=== PATIENT | male | born 1955 | race Caucasian/White ===

== ENCOUNTER 2021-04-29 14:55 | Emergency (ER) | payer BC, SELFPAY ==
--- NOTE | ~2021-04-29 | XR_ITS ---
EXAMINATION: XR CHEST CLINICAL INFORMATION: Chest pain COMPARISON: Chest x-ray 10/03/2009 TECHNIQUE: Frontal view of the chest was obtained. 5:28 PM FINDINGS: No significant abnormality is noted involving the heart, lungs, mediastinum, bony thorax or soft tissues. XR/XR chest 1V IMPRESSION: Unremarkable examination.
[2021-04-29 15:25] VITALS: BP 142/80; PULSE 56; RESP 18; TEMP 36.7; BMI 28.8
--- NOTE | 2021-04-29 15:29 | ECG_ITS ---
Test Reason : CHEST PAIN Blood Pressure : / mmHG Vent. Rate : 051 BPM Atrial Rate : 051 BPM P-R Int : 180 ms QRS Dur : 098 ms QT Int : 418 ms P-R-T Axes : 034 -05 015 degrees QTc Int : 385 ms Sinus bradycardia Otherwise normal ECG When compared with ECG of 03-OCT-2009 11:19, Premature ventricular complexes are no longer Present Referred By: Generic ED Physician Electronically Signed By:MAIRA GOVEA
[2021-04-29 16:30] LABS: MANUAL DIFF FLAG NO
[2021-04-29 16:31] LABS: Basophils Percent Auto 0.2 % (0-2); Eosinophils Absolute Auto 0.1 X10*3/uL (0.0-0.4); Eosinophils Percent Auto 1.1 % (0-4); Hemoglobin 14.5 g/dl (14.0-18.0); Imm Gran Abs Auto 0.01 X10*3/uL (0.00-0.03); Imm Gran Pct Auto 0.2 % (0.0-0.4); Lymphocytes Absolute Auto 1.6 X10*3/uL (1.2-4.9); Lymphocytes Percent Auto 28.4 % (20-40); Mean Corpuscular HGB Conc 33.7 g/dl (31.0-36.0); Mean Corpuscular Hemoglobin 30.6 pg (27.0-33.0); Mean Corpuscular Volume 90.7 fL (80-98); Mean Platelet Volume 11.1 fL (9.4-12.4); Monocytes Absolute Auto 0.5 X10*3/uL (0.1-1.2); Monocytes Percent Auto 9.3 % (2-11); Neutrophils Absolute Auto 3.4 X10*3/uL (2.0-8.3); Neutrophils Percent Auto 60.8 % (45-73); Platelet Count 175 X10*3/uL (160-400); Red Blood Count 4.74 X10*6/uL (4.60-5.80); Red Cell Distribution Width 12.1 % (11.0-16.0); White Blood Count 5.6 X10*3/uL (4.8-10.8)
[2021-04-29 17:01] LABS: Anion Gap 14 (12-20); Blood Urea Nitrogen 18 mg/dL (9-16); Calcium 9.4 mg/dL (8.4-10.2); Carbon Dioxide 25 mmol/L (22-29); Chloride 108 mmol/L (96-108); Creatinine Clr Calc Pharmacy 94.7; Estimated Glomerular Filt Rate > 60; Glucose Random 99 mg/dL (60-115); Potassium 4.1 mmol/L (3.3-5.1); Sodium 143 mmol/L (135-145)
[2021-04-29 17:08] LABS: B Type Natriuretic Peptide 28 pg/mL (<100); Troponin-I High Sensitivity 7.1 ng/L (<3.5-35.0)
--- NOTE | 2021-04-29 18:07 | ED.CHESTPAIN ---
HPI - Chest Pain General Chief Complaint: Chest Pain Stated Complaint: chest pain Time Seen by Provider: 04/29/21 18:07 Source: patient Mode of arrival: ambulatory Limitations: no limitations History of Present Illness HPI narrative: Patient been feeling weak since yesterday evening around 03:00 noticed bilateral hand pain and sharp chest pain which lasted for about 1 or 2 minutes which was diffuse , patient continued to have off and on mild pain all day, no chest pain at this time this does not feel comfortable strong family history of coronary artery disease in family no shortness of breath patient had similar chest pain in 2013 and had a stress test which was negative MD complaint: chest pain Related Data Previous Rx's Medication Instructions Recorded atorvastatin 10 mg tablet 10 mg PO DAILY #90 tab 03/07/21 Allergies Allergy/AdvReac Type Severity Reaction Status Date / Time No Known Allergies Allergy Unverified 08/02/20 16:55 Review of Systems Review of Systems: Constitutional : No Weight loss, No Fever, No Chills ENT/Mouth : No sore throat, No Rhinorrhea Eyes: No Eye Pain, No Swelling Cardiovascular : + Chest Pain, no palpitations Respiratory : No Cough, No Sputum, no shortness of breath Gastrointestinal : no Nausea, No Vomiting, No Diarrhea, No abdominal Pain, no black stools Genitourinary : No Dysuria, No Urinary Frequency Musculoskeletal : No joint pain, No Myalgias, No Joint Swelling Skin : No Skin Lesions, No rash Neuro : No Weakness, No Numbness, No Dizziness, No Headache Psych : No Anxiety/Panic, No Depression Heme/Lymph: No Bruising, No Lymphadenopathy Endocrine : No Polyuria, No Polydipsia All other systems reviewed and are negative [facility] Social History Social History Patient Tobacco Use Status: Never used Tobacco Use of substances other than those prescribed or required for medical reasons: No Advance Directives: No Advance Directives Information Provided: Yes Physical Exam Vital Signs: Vital Signs: Last Vital Signs Temp 98.0 F 04/29/21 19:29 Pulse 52 04/29/21 19:29 Resp 13 04/29/21 19:29 BP 149/70 H 04/29/21 19:29 Pulse Ox 98 04/29/21 19:29 Body Mass Index 28.8 Appearance: Alert. Oriented X3. No acute distress. Eyes: PERRLA, No Nystagmus ENT: Pharynx normal. Oral Mucosa moist Neck: Normal inspection. Neck supple. CVS: Normal heart rate and rhythm. Pulses normal. Respiratory: No respiratory distress. Equal air entry bilateral, no wheezing/rales/rhonchi Abdomen: Soft and nontender. Bowel sounds are present, no mass palpable, no CVA tenderness Skin: Skin warm and dry. Normal skin color. Normal skin turgor. Extremities: No lower extremity edema. No calf tenderness Neuro: Oriented X 3. No motor deficit. No sensory deficit.No cerebellar signs , cranial nerves II-XII intact MDM - Chest Pain MDM Narrative Medical decision making narrative: Patient with atypical chest pain with with very strong family history and EKG without any ischemic changes initial troponin 7.1 will repeat troponin No change in delta troponin. Patient without chest pain. Will discharge patient home advised to follow with sanding machine tender automatic on baby aspirin Lab Data Attestation: I reviewed the patient's lab results. Result diagrams: 04/29/21 16:13 04/29/21 16:13 Labs: Lab Results 04/29/21 04/29/21 04/29/21 Range/Units 16:13 16:13 16:13 WBC 5.6 (4.8-10.8) X10*3/uL RBC 4.74 (4.60-5.80) X10*6/uL Hgb 14.5 (14.0-18.0) g/dl Hct 43.0 (42-52) % MCV 90.7 (80-98) fL MCH 30.6 (27.0-33.0) pg MCHC 33.7 (31.0-36.0) g/dl RDW 12.1 (11.0-16.0) % Plt Count 175 (160-400) X10*3/uL MPV 11.1 (9.4-12.4) fL Immature Gran % (Auto) 0.2 (0.0-0.4) % Neut % (Auto) 60.8 (45-73) % Lymph % (Auto) 28.4 (20-40) % [place] % (Auto) 9.3 (2-11) % Eos % (Auto) 1.1 (0-4) % Baso % (Auto) 0.2 (0-2) % Lymph # (Auto) 1.6 (1.2-4.9) X10*3/uL [place] # (Auto) 0.5 (0.1-1.2) X10*3/uL Eos # (Auto) 0.1 (0.0-0.4) X10*3/uL Baso # (Auto) 0.0 (0.0-0.2) X10*3/uL Abs Immat Gran (auto) 0.01 (0.00-0.03) X10*3/uL Absolute Neuts (auto) 3.4 (2.0-8.3) X10*3/uL Absolute Nucleated RBC 0.000 (0.0-0.012) X10*3/uL Nucleated RBC % (auto) 0.0 (0.0-0.2) /100WBC Sodium 143 (135-145) mmol/L Potassium 4.1 (3.3-5.1) mmol/L Chloride 108 (96-108) mmol/L Carbon Dioxide 25 (22-29) mmol/L Anion Gap 14 (12-20) BUN 18 H (9-16) mg/dL Creatinine 0.95 (0.5-1.4) mg/dL Estim Creat Clear Calc 94.7 Estimated GFR > 60 Random Glucose 99 (60-115) mg/dL Calcium 9.4 (8.4-10.2) mg/dL Troponin I High Sens 7.1 (<3.5-35.0) ng/L B-Natriuretic Peptide 28 (<100) pg/mL 04/29/21 Range/Units 18:34 WBC (4.8-10.8) X10*3/uL RBC (4.60-5.80) X10*6/uL Hgb (14.0-18.0) g/dl Hct (42-52) % MCV (80-98) fL MCH (27.0-33.0) pg MCHC (31.0-36.0) g/dl RDW (11.0-16.0) % Plt Count (160-400) X10*3/uL MPV (9.4-12.4) fL Immature Gran % (Auto) (0.0-0.4) % Neut % (Auto) (45-73) % Lymph % (Auto) (20-40) % [place] % (Auto) (2-11) % Eos % (Auto) (0-4) % Baso % (Auto) (0-2) % Lymph # (Auto) (1.2-4.9) X10*3/uL [place] # (Auto) (0.1-1.2) X10*3/uL Eos # (Auto) (0.0-0.4) X10*3/uL Baso # (Auto) (0.0-0.2) X10*3/uL Abs Immat Gran (auto) (0.00-0.03) X10*3/uL Absolute Neuts (auto) (2.0-8.3) X10*3/uL Absolute Nucleated RBC (0.0-0.012) X10*3/uL Nucleated RBC % (auto) (0.0-0.2) /100WBC Sodium (135-145) mmol/L Potassium (3.3-5.1) mmol/L Chloride (96-108) mmol/L Carbon Dioxide (22-29) mmol/L Anion Gap (12-20) BUN (9-16) mg/dL Creatinine (0.5-1.4) mg/dL Estim Creat Clear Calc Estimated GFR Random Glucose (60-115) mg/dL Calcium (8.4-10.2) mg/dL Troponin I High Sens 7.2 (<3.5-35.0) ng/L B-Natriuretic Peptide (<100) pg/mL Discharge Plan Discharge Clinical Impression: Chest pain Patient Disposition: Home, Self-Care Instructions: Chest Pain (ED) Additional Instructions: Take baby aspirin daily and follow with sanding machine tender automatic for further evaluation Report to ER if recurrence of chest pain Prescriptions: No Action atorvastatin 10 mg tablet 10 mg PO DAILY Qty: 90 RF: 0 Referrals: Preston Kolb MD [Physician] - 2 days Stand Alone Forms: Work/School Release Interventions: ED Discharge Assessment Last Done: 04/29/21 20:23 Discharge Date/Time: 04/29/21 20:24
[2021-04-29 18:29] VITALS: BP 138/78; PULSE 48; RESP 12; O2SAT 97
[2021-04-29] MEDS: Aspirin Enteric Coated 81 MG TABLET.DR 162 MG PO (18:31)
[2021-04-29 18:43] VITALS: PULSE 50
[2021-04-29 19:29] VITALS: BP 149/70; PULSE 52; RESP 13; TEMP 36.7; O2SAT 98
[2021-04-29 19:40] LABS: Troponin-I High Sensitivity 7.2 ng/L (<3.5-35.0)
== END 2021-04-29 20:24 | disposition home or self-care (01) ==
PROVIDERS: Emergency Provider Internal Medicine; PCP Nurse Practitioner Family
DX: R07.9 Chest pain, unspecified (principal)
CPT/HCPCS: 36415; 71045; 80048; 83880; 84484; 85025; 93005; 99283; 99284

== ENCOUNTER → 2021-05-08 08:51 | Outpatient (BNVA) | payer BC, MEDICARE, SELFPAY | PROVIDERS: PCP Nurse Practitioner Family; Referring Provider Nurse Practitioner Family; Visit Provider Internal Medicine ==

== ENCOUNTER → 2021-05-15 08:08 | Outpatient (REF) | payer BC, MEDICARE, SELFPAY ==
--- NOTE | ~2021-05-15 | NM_ITS ---
EXERCISE MYOCARDIAL PERFUSION STUDY INDICATION: Chest pain, assess for coronary disease and ischemia TECHNIQUE: The patient was brought in for an exercise perfusion study on 05/15/2021. Patient performed exercise as per Diogo protocol and was injected 30 mCi of sestamibi once target heart rate was achieved. Images were obtained using the SPECT gamma camera interlaced with the gating device. Images were obtained in supine position. Resting perfusion study was performed on 05/16/2021. Patient was administered 30 mCi of sestamibi intravenously at rest. Images were then obtained in supine position. Total DLP 94mGy-cm. Images were processed with the software and compared side to side in short axis, horizontal long axis and vertical long axis views. FINDINGS: Raw images were reviewed. The stress perfusion study showed mildly diminished tracer uptake in the basal inferior wall and apex. With CT attenuation correction, the basal inferior defect improves suggesting diaphragmatic artifact. The apical defect is still persisting. The gated study shows normal LV systolic function with calculated LVEF of > 70%. LV cavity is normal in size. The gated study shows normal wall thickening and contraction of segments. Resting study shows no significant perfusion abnormality. With CT attenuation correction, there is a mild apical defect. Gating at rest reveals normal wall motion with ejection fraction at 64%. The findings are consistent with mild reversible apical defect but with normal wall thickening. NM/NM cardiolite stress test IMPRESSION: 1. Myocardial perfusion imaging study shows mild reversible apical defect likely artifactual. No definitive ischemia or infarction. 2. Gated LVEF is > 70% during stress; 64% during rest. 3. Transient ischemic dilatation not present. EKG component of the test reported separately.
--- NOTE | 2021-05-15 08:30 | CA_ITS ---
Acquisition Time: 2021-05-15 08:39:35 Total Exercise Time: 00:10:47 Test Indications: R07.2 PRECORDIAL PAIN Medications: Protocol: KURT Max HR: 136 BPM 88% of Pred: 154 BPM Max BP: 158/070 mmHG Max Work Load: 13.0 METS Exercise stress test with exercise 10 min 47 sec of Kurt protocol, without anginal symptoms, without arrythmia, with normotensive response to exercise, without EKG changes meeting criteria for ischemia. Nuclear images pending. Test reviewed with Dr Kolb. Referred By: Carlito Zacarias Overread By: KOLBY KAUR
== END ==
LOC: HO.CARD 08:08
PROVIDERS: Visit Provider Internal Medicine
DX: R07.2 Precordial pain (principal)
CPT/HCPCS: 78452; 93017; A9500

== ENCOUNTER → 2021-05-23 07:08 | Outpatient (REF) | payer BC, MEDICARE, SELFPAY ==
--- NOTE | 2021-05-23 07:11 | CA_ITS ---
Transthoracic Echocardiogram Patient (Last, First, Middle): Angel Vogel E Gender: Male Date of : 1955 Age: 66 Procedure Date: 05/23/2021 Procedure Type: Transthoracic Echocardiogram Location: OP Height: 182.88 cm Weight: 95.26 kg BSA: 2.18 m2 Heart Rate: bpm BP: 102 / 98 mmHg Monitor Tech: DANI/KALLIE Referring MD: Carlito Zacarias MD Symptoms: R07.2 - Precordial pain Study Quality: Fair ECG Rhythm: Sinus Conclusions: - The left ventricular systolic function is normal. The visually estimated ejection fraction is between 60-65%. - There is mild calcification of the aortic valve. - Top normal ascending aortic size at 3.9 cm. Findings Left Ventricle Normal left ventricular cavity size. There is normal left ventricular wall thickness. The left ventricular systolic function is normal. The visually estimated ejection fraction is between 60-65%. There is no evidence of regional wall motion abnormalities. Diastolic function is normal for age. Right Ventricle Normal right ventricular cavity size and systolic function. Atria Both atria are normal in size. Aortic Valve There is a normal trileaflet aortic valve. There is mild calcification of the aortic valve. There is no aortic valve stenosis. There is trace (trivial) aortic valve regurgitation. Mitral Valve The mitral valve appears normal. There is trace mitral valve regurgitation. There is no mitral valve stenosis. Pulmonic Valve The pulmonic valve was not well visualized. Tricuspid Valve Normal tricuspid valve structure. There is trace tricuspid valve regurgitation. Tricuspid regurgitation envelope is inadequate for calculation of right ventricular systolic pressure. Great Vessels Top normal ascending aortic size at 3.9 cm. Venous The inferior vena cava is normal in size and collapses greater than 50% with inspiration. Pericardium/Pleural There is no evidence of pericardial effusion. Prior Study Comparison Changes noted compared to prior study dated: 12/05/2019. Slight increase in ascending aortic size. Measurements 2D Linear Measurements IVSd: 0.84 0.6-0.9/0.6-1.0 cm LVIDd: 4.51 3.9-5.3/4.2-5.9 cm LVIDd Index: 2.07 2.4-3.2/2.2-3.1 cm/m2 LVIDs: 3.30 2.0-3.6 cm LVPWd: 1.07 0.7-1.1 cm Ao Root: 3.30 2.1-3.5 cm LA Diam: 4.30 2.7-3.8/3.0-4.0 cm LAIDs Index: 1.97 1.5-2.3 cm/m2 LV Mass: 179.66 67-162/88-224 g LV Mass Index: 82.41 43-95/49-115 g/m2 LVOT Diam: 2.10 3.0+(-)1.3 cm 2D Systolic Function EF 4C: 61.10 >55% EF 2C: 63.30 >55% EF BiP: 63.70 >55% Mitral Valve MV Pk E: 0.83 MV PK A: 0.49 MV Decel Time: 183.00 E/A: 1.70 E'Lateral: 11.00 E'Medial: 7.29 E/E' Med: 11.30 E/E' Lat: 7.50 PHT: 54.00 MVA PHT: 4.07 Decel [place]: 4.51 Aortic Valve AoV Pk Ezequiel: 1.66 AoV Mn Ezequiel: 1.14 AoV VTI: 0.39 AoV Pk Grad: 11.00 Aov Mn Grad: 6.00 GERMÁN Cont.VTI: 2.41 LVOT LVOT Pk Ezequiel: 1.11 LVOT Mn Ezequiel: 0.77 LVOT VTI: 0.27 LVOT Pk Grad: 5.00 LVOT Mn Grad: 3.00 LVOT Diam: 2.10 LVOT Area: 3.46 Diastolic Function MV Pk E: 0.83 MV Pk A: 0.49 E/A: 1.70 E'Medial: 7.29 E/E' Med: 11.30 E' Laterial: 11.00 E/E' Lat: 7.50 Great Vessels Aorta Ao Root-2D: 3.30 2.0-3.7 cm Ao Asc: 3.90 2.1-3.4 cm Ao Arch: 3.20 Updated in Other Vendor System with Status of Final Carlito Zacarias MD electronically signed on 05/25/2021 11:43:37 AM with status of Final
== END ==
LOC: HO.CARD 07:08
PROVIDERS: Visit Provider Internal Medicine
DX: R07.2 Precordial pain (principal)
CPT/HCPCS: 93306

== ENCOUNTER → 2021-05-28 08:52 | Outpatient (BNVA) | payer BC, MEDICARE, SELFPAY | PROVIDERS: PCP Nurse Practitioner Family; Referring Provider Nurse Practitioner Family; Visit Provider Internal Medicine ==

== ENCOUNTER 2021-06-07 08:42 | Outpatient (REF) | payer BC, SELFPAY ==
[2021-06-07 11:31] LABS: MANUAL DIFF FLAG NO
[2021-06-07 11:42] LABS: Basophils Percent Auto 0.3 % (0-2); Eosinophils Absolute Auto 0.2 X10*3/uL (0.0-0.4); Eosinophils Percent Auto 3.8 % (0-4); Hemoglobin 14.1 g/dl (14.0-18.0); Imm Gran Abs Auto 0.02 X10*3/uL (0.00-0.03); Imm Gran Pct Auto 0.3 % (0.0-0.4); Lymphocytes Absolute Auto 2.1 X10*3/uL (1.2-4.9); Lymphocytes Percent Auto 35.4 % (20-40); Mean Corpuscular HGB Conc 33.6 g/dl (31.0-36.0); Mean Corpuscular Hemoglobin 30.2 pg (27.0-33.0); Mean Corpuscular Volume 89.9 fL (80-98); Mean Platelet Volume 11.6 fL (9.4-12.4); Monocytes Absolute Auto 0.8 X10*3/uL (0.1-1.2); Monocytes Percent Auto 13.1 % (2-11); Neutrophils Absolute Auto 2.7 X10*3/uL (2.0-8.3); Neutrophils Percent Auto 47.1 % (45-73); Platelet Count 171 X10*3/uL (160-400); Prothrombin Time 11.5 SEC (9.9-13.0); Red Blood Count 4.67 X10*6/uL (4.60-5.80); Red Cell Distribution Width 12.1 % (11.0-16.0); White Blood Count 5.8 X10*3/uL (4.8-10.8)
[2021-06-07 12:14] LABS: Anion Gap 14 (12-20); Blood Urea Nitrogen 26 mg/dL (9-16); Calcium 9.5 mg/dL (8.4-10.2); Carbon Dioxide 21 mmol/L (22-29); Chloride 107 mmol/L (96-108); Estimated Glomerular Filt Rate > 60; Glucose Random 104 mg/dL (60-115); Potassium 4.5 mmol/L (3.3-5.1); Sodium 137 mmol/L (135-145)
== END 2021-06-07 08:43 | disposition home or self-care (01) ==
LOC: HO.HMGCLDS 08:42
PROVIDERS: PCP Nurse Practitioner Family; Visit Provider Internal Medicine
DX: R07.2 Precordial pain (principal)
CPT/HCPCS: 36415; 80048; 85025; 85610

== ENCOUNTER 2022-01-23 13:06 | Outpatient (REF) | payer OTHER, BC, SELFPAY ==
--- NOTE | ~2022-01-23 | XR_ITS ---
EXAMINATION: XR HIP, RIGHT XR HIP, LEFT CLINICAL INFORMATION: Pain COMPARISON: None TECHNIQUE: 2 views of each hip FINDINGS: Right hip: No fracture or dislocation. Mild narrowing of the joint space with subchondral sclerosis. Small osteophytes. The right hemipelvis is intact. Phleboliths are noted. Left hip: No fracture or dislocation. Mild narrowing of the joint space with sclerosis and small osteophytes. The left hemipelvis is intact. Phleboliths are also present on the left. XR/XR hip LT min 2V IMPRESSION: Mild degenerative changes of both hips.
--- NOTE | ~2022-01-23 | XR_ITS ---
EXAMINATION: XR HIP, RIGHT XR HIP, LEFT CLINICAL INFORMATION: Pain COMPARISON: None TECHNIQUE: 2 views of each hip FINDINGS: Right hip: No fracture or dislocation. Mild narrowing of the joint space with subchondral sclerosis. Small osteophytes. The right hemipelvis is intact. Phleboliths are noted. Left hip: No fracture or dislocation. Mild narrowing of the joint space with sclerosis and small osteophytes. The left hemipelvis is intact. Phleboliths are also present on the left. XR/XR hip RT min 2V IMPRESSION: Mild degenerative changes of both hips.
--- NOTE | ~2022-01-23 | XR_ITS ---
EXAMINATION: XR KNEE, RIGHT XR KNEE, LEFT CLINICAL INFORMATION: Pain COMPARISON: None TECHNIQUE: 2 views of each knee FINDINGS: Right knee: No fracture or subluxation. Mild medial compartment joint space narrowing. No joint effusion. The soft tissues appear unremarkable. Left knee: No fracture or subluxation. Mild medial compartment joint space narrowing. No joint effusion. The soft tissues appear unremarkable. XR/XR knee RT 2V IMPRESSION: Mild medial compartment joint space narrowing of both knees. Otherwise unremarkable appearance.
--- NOTE | ~2022-01-23 | XR_ITS ---
EXAMINATION: XR KNEE, RIGHT XR KNEE, LEFT CLINICAL INFORMATION: Pain COMPARISON: None TECHNIQUE: 2 views of each knee FINDINGS: Right knee: No fracture or subluxation. Mild medial compartment joint space narrowing. No joint effusion. The soft tissues appear unremarkable. Left knee: No fracture or subluxation. Mild medial compartment joint space narrowing. No joint effusion. The soft tissues appear unremarkable. XR/XR knee LT 2V IMPRESSION: Mild medial compartment joint space narrowing of both knees. Otherwise unremarkable appearance.
== END 2022-01-23 13:07 | disposition home or self-care (01) ==
LOC: HO.HMGCX 13:06
PROVIDERS: Visit Provider Nurse Practitioner Family
DX: M25.561 Pain in right knee (principal); M25.562 Pain in left knee; M25.551 Pain in right hip; M25.552 Pain in left hip
CPT/HCPCS: 73502; 73560

== ENCOUNTER 2022-02-24 15:00 | Outpatient (RCR) | payer OTHER, BC, SELFPAY ==
--- NOTE | 2022-01-27 16:43 | MHC.PT.EP ---
[facility] [place] Office [place] Office [place] Office [address] Paresh Lima [address] [phone] F: [phone] F: [phone] F: [phone] F: [phone] Physical Therapy Plan of Care Date of Evaluation: Date of Surgery: Diagnosis: B hip and knee pain. 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 Pt is deemed an appropriate candidate to receive skilled PT in order to address his physical limitations to improve his functional ability. Frequency and Duration: The patient will be seen 2 x / wk x 5 wks. Short Term Goals: Initiate HEP with evidence of compliance. Abolish B LE referred symptoms. Production Manager Goals: I with HEP. Pt will be able to ascend and descend 1 fl of stairs with at most a little bit of difficulty; initial: quite a bit of difficulty. Improve B knee extension MMT to > 4/5; initial 4+/.5 Pt will reports no difficulty walking 1 mile; initial moderate difficulty. Treatment Plan: Modalities to reduce pain, spasms and effusion. Manual therapy to restore motion and function. Therapeutic exercise to improve strength and flexibility. Neuromuscular re-education for posture and balance. Therapeutic activities to return to functional activities of daily living. Electronically signed by: Please sign and return to therapist. Thank you for your referral.
--- NOTE | 2022-02-24 15:58 | MHC.PT.EP ---
[facility] [place] Office [place] Office [place] [facility] [address] Paresh Lima [address] [phone] F: [phone] F: [phone] F: [phone] F: [phone] Physical Therapy Plan of Care Date of Evaluation: Date of Surgery: Diagnosis: B hip and knee pain. 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 Pt is deemed an appropriate candidate to receive skilled PT in order to address his physical limitations to improve his functional ability. Frequency and Duration: The patient will be seen 2 x / wk x 5 wks. Short Term Goals: Initiate HEP with evidence of compliance. Abolish B LE referred symptoms. Casino Cashier Goals: I with HEP. Pt will be able to ascend and descend 1 fl of stairs with at most a little bit of difficulty; initial: quite a bit of difficulty. Improve B knee extension MMT to > 4/5; initial 4+/.5 Pt will reports no difficulty walking 1 mile; initial moderate difficulty. Treatment Plan: Modalities to reduce pain, spasms and effusion. Manual therapy to restore motion and function. Therapeutic exercise to improve strength and flexibility. Neuromuscular re-education for posture and balance. Therapeutic activities to return to functional activities of daily living. Electronically signed by: Please sign and return to therapist. Thank you for your referral.
== END 2022-02-24 16:15 | disposition home or self-care (01) ==
LOC: HO.PTCHIC 15:00
PROVIDERS: PCP Nurse Practitioner Family; Visit Provider Nurse Practitioner Family
DX: M25.551 Pain in right hip (principal); M25.552 Pain in left hip; M25.561 Pain in right knee; M25.562 Pain in left knee
CPT/HCPCS: 97110; 97161; 97530

== ENCOUNTER 2022-04-11 06:12 | Outpatient (REF) | payer BC, MEDICARE, SELFPAY ==
[2022-04-11 11:43] LABS: Appearance Urine CLEAR; Color Urine YELLOW; Glucose Urine UA NEG (NEG); Leukocyte Esterase Urine NEG (NEG); Nitrite Urine NEG (NEG); PH 6.5 (5.0-8.0); Urine Blood NEG (NEG); Urine Ketones NEG (NEG); Urine Protein NEG (NEG-TRACE)
[2022-04-11 12:09] LABS: Alanine Aminotransferase 22 U/L (0-40); Albumin Level 3.9 g/dL (3.5-5.0); Alkaline Phosphatase 63 U/L (39-117); Anion Gap 11 (12-20); Aspartate Amino Transferase 26 U/L (5-37); Bilirubin Total 0.7 mg/dL (0.0-1.0); Blood Urea Nitrogen 23 mg/dL (9-16); Calcium 9.1 mg/dL (8.4-10.2); Carbon Dioxide 24 mmol/L (22-29); Chloride 109 mmol/L (96-108); Cholesterol 183 mg/dL; Estimated Glomerular Filt Rate > 60; Glucose Fasting 114 mg/dL (60-99); HDL Cholesterol 53 mg/dL; LDL Cholesterol Calculated 120 mg/dl; Potassium 4.1 mmol/L (3.3-5.1); Sodium 140 mmol/L (135-145); Total Protein 6.8 g/dL (6.5-8.0); Triglycerides 52 mg/dL
[2022-04-11 12:10] LABS: Prostate Specific Antigen Scr 2.35 ng/mL (<0.05-4.0); TSH reflex Free T4 2.25 uIU/mL (0.32-4.0)
== END 2022-04-11 06:13 | disposition home or self-care (01) ==
LOC: HO.HMGCLDS 06:12
PROVIDERS: Visit Provider Nurse Practitioner Family
DX: Z00.00 Encounter for general adult medical examination without abnormal findings (principal); Z12.5 Encounter for screening for malignant neoplasm of prostate
CPT/HCPCS: 36415; 80053; 80061; 81003; 84153; 84443

== ENCOUNTER → 2022-04-16 13:49 | Outpatient (BNVA) | payer BC, MEDICARE, SELFPAY | PROVIDERS: PCP Nurse Practitioner Family; Referring Provider Nurse Practitioner Family; Visit Provider Internal Medicine | DX: Z01.810 Encounter for preprocedural cardiovascular examination (principal); R07.2 Precordial pain; I35.9 Nonrheumatic aortic valve disorder, unspecified; I77.89 Other specified disorders of arteries and arterioles | CPT/HCPCS: 93005 ==

== ENCOUNTER 2022-07-14 08:38 | Outpatient (REF) | payer BC, SELFPAY ==
--- NOTE | ~2022-07-14 | US_ITS ---
EXAMINATION: US SCROTUM CLINICAL INFORMATION: Right testicular pain, on and off for about one week. COMPARISON: No similar priors. TECHNIQUE: A sonogram of the scrotum was performed assessing tena-scale appearance and color Doppler flow. Spectral Doppler analysis of the arterial and venous flow were performed in the testes bilaterally. FINDINGS: RIGHT: Right testicle measures 4.1 x 2.0 x 2.7 cm, volume 11.6 mL. No focal testicular parenchymal lesions are visualized. Spectral Doppler analysis of the arterial and venous flow is normal in the right testis. Right epididymal head is normal in size. No right hydrocele or varicocele is seen. Right epididymal Doppler flow is normal. LEFT: Left testicle measures 4.4 x 2.1 x 2.4 cm, volume 11.6 mL. No focal testicular parenchymal lesions are visualized. Spectral Doppler analysis of the arterial and venous flow is normal in the left testis. Left epididymal head is normal in size. No left hydrocele or varicocele is seen. Left epididymal Doppler flow is normal. US/US scrotum doppler IMPRESSION: No significant abnormality.
--- NOTE | ~2022-07-14 | US_ITS ---
EXAMINATION: US SCROTUM CLINICAL INFORMATION: Right testicular pain, on and off for about one week. COMPARISON: No similar priors. TECHNIQUE: A sonogram of the scrotum was performed assessing tena-scale appearance and color Doppler flow. Spectral Doppler analysis of the arterial and venous flow were performed in the testes bilaterally. FINDINGS: RIGHT: Right testicle measures 4.1 x 2.0 x 2.7 cm, volume 11.6 mL. No focal testicular parenchymal lesions are visualized. Spectral Doppler analysis of the arterial and venous flow is normal in the right testis. Right epididymal head is normal in size. No right hydrocele or varicocele is seen. Right epididymal Doppler flow is normal. LEFT: Left testicle measures 4.4 x 2.1 x 2.4 cm, volume 11.6 mL. No focal testicular parenchymal lesions are visualized. Spectral Doppler analysis of the arterial and venous flow is normal in the left testis. Left epididymal head is normal in size. No left hydrocele or varicocele is seen. Left epididymal Doppler flow is normal. US/US scrotum IMPRESSION: No significant abnormality.
== END 2022-07-14 08:39 | disposition home or self-care (01) ==
LOC: HO.HMGCX 08:38
PROVIDERS: Visit Provider Internal Medicine
DX: N44.00 Torsion of testis, unspecified (principal)
CPT/HCPCS: 76870; 93975

== ENCOUNTER 2022-07-15 06:10 | Outpatient (REF) | payer BC, SELFPAY ==
[2022-07-15 11:28] LABS: MANUAL DIFF FLAG NO
[2022-07-15 11:43] LABS: Basophils Percent Auto 0.3 % (0-2); Eosinophils Absolute Auto 0.6 X10*3/uL (0.0-0.4); Eosinophils Percent Auto 9.9 % (0-4); Hematocrit 42.3 % (42.0-52.0); Hemoglobin 14.1 g/dl (14.0-18.0); Imm Gran Abs Auto 0.01 X10*3/uL (0.00-0.03); Imm Gran Pct Auto 0.2 % (0.0-0.4); Lymphocytes Absolute Auto 2.3 X10*3/uL (1.2-4.9); Mean Corpuscular HGB Conc 33.3 g/dl (31.0-36.0); Mean Corpuscular Hemoglobin 30.1 pg (27.0-33.0); Mean Corpuscular Volume 90.4 fL (80.0-98.0); Monocytes Absolute Auto 0.6 X10*3/uL (0.1-1.2); Monocytes Percent Auto 10.1 % (2-11); Neutrophils Absolute Auto 2.3 x10*3/uL (2.0-8.3); Neutrophils Percent Auto 39.5 % (45-73); Platelet Count 185 X10*3/uL (160-400); Red Blood Count 4.68 X10*6/uL (4.60-5.80); Red Cell Distribution Width 12.9 % (11.0-16.0); White Blood Count 5.7 X10*3/uL (4.8-10.8)
[2022-07-15 12:03] LABS: Appearance Urine Clear; Color Urine Yellow; Glucose Urine UA Negative (Negative); Leukocyte Esterase Urine Negative (Negative); Nitrite Urine Negative (Negative); PH 6.5 (5.0-9.0); Specific Gravity - Urine 1.015 (1.005-1.025); Urine Blood Negative (Negative); Urine Ketones Negative (Negative); Urine Protein Negative (Neg-Trace)
[2022-07-15 12:11] LABS: Estimated Average Glucose 105 mg/dL; Hemoglobin A1c % 5.3 %
[2022-07-15 12:27] LABS: Alanine Aminotransferase 20 U/L (0-40); Alkaline Phosphatase 60 U/L (39-117); Anion Gap 13 (12-20); Aspartate Amino Transferase 22 U/L (5-37); Blood Urea Nitrogen 25 mg/dL (9-16); Calcium 8.7 mg/dL (8.4-10.2); Carbon Dioxide 24 mmol/L (22-29); Chloride 107 mmol/L (96-108); Cholesterol 200 mg/dL; Estimated Glomerular Filt Rate > 60; Glucose Fasting 107 mg/dL (60-99); HDL Cholesterol 67 mg/dL; LDL Cholesterol Calculated 124 mg/dl; Potassium 4.3 mmol/L (3.3-5.1); Sodium 140 mmol/L (135-145); Total Protein 6.9 g/dL (6.5-8.0); Triglycerides 49 mg/dL
[2022-07-15 12:32] LABS: TSH reflex Free T4 2.31 uIU/mL (0.32-4.0)
== END 2022-07-15 06:11 | disposition home or self-care (01) ==
LOC: HO.HMGCLDS 06:10
PROVIDERS: PCP Nurse Practitioner Family; Visit Provider Nurse Practitioner Family
DX: R73.01 Impaired fasting glucose (principal)
CPT/HCPCS: 36415; 80053; 80061; 81003; 83036; 84443; 85025

== ENCOUNTER 2022-08-04 10:01 | Outpatient (REF) | payer MEDICARE, SELFPAY ==
[2022-08-04 14:09] LABS: Anion Gap 16 (12-20); Blood Urea Nitrogen 21 mg/dL (9-16); Carbon Dioxide 21 mmol/L (22-29); Chloride 104 mmol/L (96-108); Estimated Glomerular Filt Rate > 60; Glucose Random 173 mg/dL (60-115); Sodium 137 mmol/L (135-145)
== END 2022-08-04 10:02 | disposition home or self-care (01) ==
LOC: HO.HMGCLDS 10:01
PROVIDERS: PCP Nurse Practitioner Family; Visit Provider Internal Medicine
DX: R07.2 Precordial pain (principal)
CPT/HCPCS: 36415; 80048

== ENCOUNTER → 2022-08-26 14:48 | Outpatient (BNVA) | payer BC, MEDICARE, SELFPAY | PROVIDERS: PCP Nurse Practitioner Family; Visit Provider Internal Medicine | DX: I35.9 Nonrheumatic aortic valve disorder, unspecified (principal); I77.89 Other specified disorders of arteries and arterioles; R07.2 Precordial pain | CPT/HCPCS: 99212 ==

== ENCOUNTER 2022-08-27 08:11 | Outpatient (REF) | payer MEDICARE, SELFPAY ==
[2022-08-27 11:29] LABS: Hematocrit 44.1 % (42.0-52.0); Hemoglobin 14.9 g/dl (14.0-18.0); Mean Corpuscular HGB Conc 33.8 g/dl (31.0-36.0); Mean Corpuscular Volume 91.7 fL (80.0-98.0); Mean Platelet Volume 10.9 fL (9.4-12.4); Platelet Count 176 X10*3/uL (160-400); Red Blood Count 4.81 X10*6/uL (4.60-5.80); Red Cell Distribution Width 12.6 % (11.0-16.0); White Blood Count 5.3 X10*3/uL (4.8-10.8)
[2022-08-27 11:41] LABS: Anion Gap 14 (12-20); Blood Urea Nitrogen 23 mg/dL (9-16); Calcium 9.4 mg/dL (8.4-10.2); Carbon Dioxide 28 mmol/L (22-29); Chloride 103 mmol/L (96-108); Estimated Glomerular Filt Rate > 60; Glucose Random 94 mg/dL (60-115); Potassium 4.2 mmol/L (3.3-5.1); Sodium 141 mmol/L (135-145)
== END 2022-08-27 08:12 | disposition home or self-care (01) ==
LOC: HO.HMGCLDS 08:11
PROVIDERS: PCP Nurse Practitioner Family; Visit Provider Internal Medicine
DX: R07.2 Precordial pain (principal)
CPT/HCPCS: 36415; 80048; 85027; 85610

== ENCOUNTER → 2022-11-13 14:36 | Outpatient (BNVA) | payer SELFPAY | PROVIDERS: PCP Nurse Practitioner Family; Visit Provider Physician Assistant | DX: Z02.79 Encounter for issue of other medical certificate (principal) ==

== ENCOUNTER 2022-12-12 06:43 | Day surgery (SDC) | payer MEDICARE, SELFPAY ==
--- NOTE | 2022-12-11 14:20 | P.CONAN_ITS ---
Documented by User: Gema Mosquera NP 12/11/22 14:30 HPI - Anesthesia Eval Consult details Narrative: 67yo M for Colonoscopy Cardiac cleared (cardiac cath 08/2022 showed mild disease in LAD, minimal irreg) [facility] Active Problems Active Problems: All Active Problems (Updated 12/11/22 @ 12:22 by Stephanie Leiva, PIA) Precordial chest pain (Acute) Ascending aorta enlargement (Acute) Aortic valve calcification (Acute) Physical exam (Acute) Screening PSA (prostate specific antigen) (Acute) Screening for colon cancer (Acute) Preoperative cardiovascular examination (Acute) Diarrhea (Acute) Elevated fasting blood sugar (Acute) Epididymitis (Acute) S/P cardiac catheterization (Acute) Hyperlipidemia (Acute) Abnormal nuclear stress test (Acute) Coronary artery disease (Acute) Wound (Acute) Past Medical History Medical History (Updated 12/12/22 @ 07:03 by Belgica Bender RN) Elevated cholesterol GERD (gastroesophageal reflux disease) History of coronary angiogram Hx of fracture of clavicle Wound Family History Family History Father Prosthetic valve dysfunction Brother Myocardial infarction complications Mother Pacemaker Surgical History Surgical History (Updated 12/12/22 @ 07:02 by Belgica Bender RN) History of bilateral inguinal hernia repair History of mandibular surgery History of surgery on arm Hx of colonoscopy Social History Social History Housing: House Patient Tobacco Use Status: Never used Tobacco e-Cigarette/Vaping Use: Never Used Second Hand Smoke Exposure: Yes (pt's smokes ) Use of substances other than those prescribed or required for medical reasons: No Are you DNR?: No Advance Directives: No Advance Directives Information Provided: Yes service: No Current occupational status: employed and retired Current occupation: [employer] Current occupational exposures/hazards: No Cognitive needs: No Hearing needs: No Vision needs: No Meds Allergies Allergy/AdvReac Type Severity Reaction Status Date / Time No Known Allergies Allergy Verified 12/12/22 07:02 Home Medications Medication Instructions Recorded Confirmed Last Taken Type ascorbate calcium (vitamin C) 500 500 mg PO DAILY 05/08/21 09/25/22 Unknown History mg tablet zinc 50 mg tablet 50 mg PO DAILY 05/08/21 09/25/22 Unknown History aspirin 81 mg tablet,delayed 81 mg PO DAILY 08/26/22 09/25/22 12/04/22 History release (Adult Low Dose Aspirin) Fish Oil 12/11/22 12/11/22 12/04/22 History atorvastatin 20 mg tablet (Lipitor) 20 mg PO DAILY 12/12/22 Unknown History Exam Exam Date and Time: December 11, 2022 1420 Pertinent Lab Results Pertinent Lab Results: Laboratory Tests 08/27/22 08/27/22 08:18 08:18 WBC 5.3 Hgb 14.9 Hct 44.1 Plt Count 176 Sodium 141 Potassium 4.2 Chloride 103 Carbon Dioxide 28 BUN 23 H Creatinine 1.11 Narrative Narrative: Per 09/2022 cardiac office visit: A nuclear stress test done 05/15/2021 showed mild reversible apical defect, likely artifactual, no definitive ischemia or infarct, EF normal.? Echocardiogram done 05/23/2021 showed EF 60-65%, mild calcification of the aortic valve, ascending aorta 3.9 cm, no regional wall motion abnormality.? He continued to have symptom and did not pursue cardiac catheterization at at that time.? A CTA of the coronary arteries was done on 08/22/2022 showing mixed plaque in the left main with 60% stenosis, lad no definite high-grade stenosis, left circumflex moderate calcification, less than 50% stenosis, right coronary moderate atherosclerosis of the mid RCA with less than 50% stenosis.? He then underwent a cardiac catheterization on 09/02/2022 which shows the left main to be 20-30% stenosis, mid lad 40% stenosis, left circumflex and RCA minimal luminal irregularity.? Was determined that his symptoms are noncardiac in nature.? He does have nonobstructive coronary artery disease. Assessment and Plan Assessment Anesthesia Assessment: Chart Reviewed Documented by User: Wei Gregory MD 12/12/22 07:43 [facility] Past Medical History Medical History (Updated 12/12/22 @ 07:03 by Belgica Bender RN) Elevated cholesterol GERD (gastroesophageal reflux disease) History of coronary angiogram Hx of fracture of clavicle Wound Family History Family History Father Prosthetic valve dysfunction Brother Myocardial infarction complications Mother Pacemaker Family history of problems with anesthesia: No Surgical History Surgical History (Updated 12/12/22 @ 07:02 by Belgica Bender RN) History of bilateral inguinal hernia repair History of mandibular surgery History of surgery on arm Hx of colonoscopy History of Problems with Anesthesia: No Social History Social History Housing: House Patient Tobacco Use Status: Never used Tobacco e-Cigarette/Vaping Use: Never Used Second Hand Smoke Exposure: Yes (pt's smokes ) Use of substances other than those prescribed or required for medical reasons: No Are you DNR?: No Advance Directives: No Advance Directives Information Provided: Yes service: No Current occupational status: employed and retired Current occupation: [employer] Current occupational exposures/hazards: No Cognitive needs: No Hearing needs: No Vision needs: No Meds Allergies Allergy/AdvReac Type Severity Reaction Status Date / Time No Known Allergies Allergy Verified 12/12/22 07:02 Home Medications Medication Instructions Recorded Confirmed Last Taken Type ascorbate calcium (vitamin C) 500 500 mg PO DAILY 05/08/21 09/25/22 Unknown History mg tablet zinc 50 mg tablet 50 mg PO DAILY 05/08/21 09/25/22 Unknown History aspirin 81 mg tablet,delayed 81 mg PO DAILY 08/26/22 09/25/22 12/04/22 History release (Adult Low Dose Aspirin) Fish Oil 12/11/22 12/11/22 12/04/22 History atorvastatin 20 mg tablet (Lipitor) 20 mg PO DAILY 12/12/22 Unknown History Exam Airway Mallampati Class: II TM Dist: >3cm Neck ROM: Limited Heart: rrr Lungs: cta Assessment and Plan Final Anesthetic Review Family History of Problems with Anesthesia: No History of Problems with Anesthesia: No NPO: Yes ASA Class: III Final Preanesthetic Review: No Changes in Pt Med Stat, Meds/Allgs Chart Reviewed, Consent Obtained/Reviewed and Anes Risks/Benef Reviewed Patient Risk: Intermediate Procedure Risk: Low Assessment/Block/Sedation in SS: Assess/Block/Sedation-SS Anesthetic Plan Anesthetic Plan: MAC: and Agree w/ Assess. and Plan Disposition: Standard PACU
[2022-12-12 07:04] VITALS: BMI 27.8
[2022-12-12 07:13] VITALS: BP 141/74; PULSE 60; RESP 16; TEMP 36.6; O2SAT 98
[2022-12-12] MEDS: Lactated Ringers 1,000 ML 100 ML IVCONT (07:43)
--- NOTE | 2022-12-12 07:47 | HO.ANESPROP2 ---
[facility] Active Problems Active Problems: All Active Problems (Updated 12/12/22 @ 07:03 by Belgica Bender, RN) Precordial chest pain (Acute) Ascending aorta enlargement (Acute) Aortic valve calcification (Acute) Physical exam (Acute) Screening PSA (prostate specific antigen) (Acute) Screening for colon cancer (Acute) Preoperative cardiovascular examination (Acute) Diarrhea (Acute) Elevated fasting blood sugar (Acute) Epididymitis (Acute) S/P cardiac catheterization (Acute) Hyperlipidemia (Acute) Abnormal nuclear stress test (Acute) Coronary artery disease (Acute) Wound (Acute) Past Medical History Medical History (Updated 12/12/22 @ 07:03 by Belgica Bender, RN) Elevated cholesterol GERD (gastroesophageal reflux disease) History of coronary angiogram Hx of fracture of clavicle Wound Family History Family History Father Prosthetic valve dysfunction Brother Myocardial infarction complications Mother Pacemaker Family history of problems with anesthesia: No Surgical History Surgical History (Updated 12/12/22 @ 07:02 by Belgica Bender RN) History of bilateral inguinal hernia repair History of mandibular surgery History of surgery on arm Hx of colonoscopy History of Problems with Anesthesia: No Social History Social History Housing: House Patient Tobacco Use Status: Never used Tobacco e-Cigarette/Vaping Use: Never Used Second Hand Smoke Exposure: Yes (pt's smokes ) Use of substances other than those prescribed or required for medical reasons: No Are you DNR?: No Advance Directives: No Advance Directives Information Provided: Yes service: No Current occupational status: employed and retired Current occupation: [employer] Current occupational exposures/hazards: No Cognitive needs: No Hearing needs: No Vision needs: No Meds Allergies Allergy/AdvReac Type Severity Reaction Status Date / Time No Known Allergies Allergy Verified 12/12/22 07:02 Active Medications: Current Medications Lactated Ringer's (Lr) 1,000 mls @ 100 mls/hr IVCONT .Q10H JUSTIN Last Admin: 12/12/22 07:43 Dose: 100 mls/hr Home Medications Medication Instructions Recorded Confirmed Last Taken Type ascorbate calcium (vitamin C) 500 500 mg PO DAILY 05/08/21 09/25/22 Unknown History mg tablet zinc 50 mg tablet 50 mg PO DAILY 05/08/21 09/25/22 Unknown History aspirin 81 mg tablet,delayed 81 mg PO DAILY 08/26/22 09/25/22 12/04/22 History release (Adult Low Dose Aspirin) Fish Oil 12/11/22 12/11/22 12/04/22 History atorvastatin 20 mg tablet (Lipitor) 20 mg PO DAILY 12/12/22 Unknown History Exam Exam Date and Time: December 12, 2022 0747 Height,Weight and Vital Signs: Height 6 ft Weight 92.986 kg Last Vital Signs Temp 97.8 F 12/12/22 07:13 Pulse 60 12/12/22 07:13 Resp 16 12/12/22 07:13 BP 141/74 H 12/12/22 07:13 Pulse Ox 98 12/12/22 07:13 O2 Del Method 12/12/22 07:13 Airway Mallampati Class: II TM Dist: >3cm Neck ROM: Full Assessment and Plan Assessment Anesthesia Assessment: Anesthesia Plan Discussed and Chart Reviewed Final Anesthetic Review Family History of Problems with Anesthesia: No History of Problems with Anesthesia: No NPO: Yes ASA Class: III Final Preanesthetic Review: No Changes in Pt Med Stat, Meds/Allgs Chart Reviewed, Consent Obtained/Reviewed and Anes Risks/Benef Reviewed Patient Risk: Low Procedure Risk: Intermediate Anesthetic Plan Anesthetic Plan: MAC: Disposition: Standard PACU
--- NOTE | 2022-12-12 08:01 | MHC.SHP ---
Pre-Procedural Eval Section A Date of Service: 12/12/22 Section B Chief Complaint: screening Details of Present Illness: see H&P no changes Relevant Family History (Specify if Yes): No Relevant Social History: None Present Medications: None Medical History: No relevant PMH History of Previous Operations: No relevant previous surgery Allergies: Allergies Allergy/AdvReac Type Severity Reaction Status Date / Time No Known Allergies Allergy Verified 12/12/22 07:02 Review of Systems Sugical H&P ROS: Negative: Constitution, Cardiovascular, Respiratory, Neurological, Psychiatric, Hem-Onc, Allergic/Immunologic, Gastrointestinal, Genitourinary, Musculoskeletal, Integumentary, Endocrine and Eyes/Ears/Nose/Throat Exam Surgical H&P Exam: Normal: HEENT, Normal: Heart, Normal: Lungs, Normal: Extremities, Normal: Abdomen, Normal: Skin and Normal: Neurological Plan Diagnosis/Plan: Unchanged I have reviewed the history and physical and performed a pertinent physical examination on my patient. No changes have occurred unless specified. Time Spent With Patient Time: Total time managing care of this patient today ____ minutes.
--- NOTE | 2022-12-12 08:27 | PM.OP ---
Brief Operative Note Date of Service: 12/12/22 Pre-op diagnosis: screening Post-op diagnosis: same Procedure: colonoscopy Surgeon: Hugo Dee Anesthesia: MAC Was an Hospital Receptionist used for this Procedure?: No Estimated blood loss (mL): 0 Pathology: none sent Condition: stable Disposition: PACU
[2022-12-12 08:28] VITALS: BP 114/64; PULSE 50; RESP 16; TEMP 36.8; O2SAT 99
[2022-12-12 08:41] VITALS: BP 111/73; PULSE 57; RESP 16; TEMP 36.7; O2SAT 98
--- NOTE | 2022-12-12 19:28 | OP_ITS ---
SURGEON: Hugo Dee MD INDICATIONS: Colon cancer screening and prior history of adenomatous colon polyps. PREOPERATIVE DIAGNOSIS: POSTOPERATIVE DIAGNOSIS: PROCEDURE PERFORMED: Colonoscopy to the terminal ileum. ESTIMATED BLOOD LOSS: COMPLICATIONS: ANESTHESIA: Monitored anesthesia care. ASSISTANTS: SPECIMENS: DESCRIPTION OF PROCEDURE: Date: 12/12/22. A history and physical performed. The risks and benefits of the procedure were explained to the patient. Informed consent was obtained. The patient was placed in the left lateral decubitus position. A digital rectal exam was performed and was found to be normal. The Olympus pediatric video colonoscope was introduced into the rectum and advanced to the cecum without difficulty. The cecum was identified by translumination, palpation, and identification of ileocecal valve. Examination was performed. The scope was removed. He tolerated the procedure well, and returned to recovery area in stable condition. FINDINGS: The terminal ileum was examined and appeared normal. The visualized colonic mucosa was normal. Quality of the prep was good. No polyps, masses or ulcers were identified. Retroflexed examination was limited. IMPRESSION: Normal colonoscopy. RECOMMENDATIONS: 1. Follow up as needed. 2. Repeat colonoscopy is recommended in 10 years for average risk individuals. MD MAUREEN Faye/LISSETTE / [id number] MTDD
== END 2022-12-12 09:11 | disposition home or self-care (01) ==
PROVIDERS: PCP Nurse Practitioner Family; Visit Provider Internal Medicine Gastroenterology
PROC: 0DJD8ZZ Inspection of Lower Intestinal Tract, Via Natural or Artificial Opening Endoscopic (ICD-10-PCS; CPT 45378; principal; 2022-12-12 08:00)
DX: Z12.11 Encounter for screening for malignant neoplasm of colon (principal); Z86.010 Personal history of colon polyps; K21.9 Gastro-esophageal reflux disease without esophagitis; E78.00 Pure hypercholesterolemia, unspecified; Z79.82 Long term (current) use of aspirin; Z79.899 Other long term (current) drug therapy; Z77.22 Contact with and (suspected) exposure to environmental tobacco smoke (acute) (chronic)
CPT/HCPCS: G0105

== ENCOUNTER 2022-12-17 08:17 | Emergency (ER) | payer MEDICARE, SELFPAY ==
[2022-12-17 08:20] VITALS: BP 126/72; PULSE 64; RESP 16; TEMP 36.6; O2SAT 98; BMI 27.8
--- NOTE | 2022-12-17 08:36 | PC.NURSE ---
67 y/o M pw diarrhea and abd pain. recently had a colonoscopy without complication. pt is aox3, VSS. states has been taking immodium without relief
[2022-12-17 08:50] LABS: Hematocrit 44.6 % (42.0-52.0); Mean Corpuscular HGB Conc 33.6 g/dl (31.0-36.0); Mean Corpuscular Hemoglobin 30.2 pg (27.0-33.0); Mean Corpuscular Volume 89.7 fL (80.0-98.0); Mean Platelet Volume 10.4 fL (9.4-12.4); Platelet Count 181 X10*3/uL (160-400); Red Blood Count 4.97 X10*6/uL (4.60-5.80); Red Cell Distribution Width 12.4 % (11.0-16.0); White Blood Count 6.3 X10*3/uL (4.8-10.8)
[2022-12-17 09:01] LABS: Alanine Aminotransferase 14 U/L (0-40); Albumin Level 4.1 g/dL (3.5-5.0); Alkaline Phosphatase 66 U/L (39-117); Anion Gap 14 (12-20); Aspartate Amino Transferase 19 U/L (5-37); Bilirubin Direct 0.3 mg/dL (0.0-0.5); Bilirubin Total 1.4 mg/dL (0.0-1.0); Blood Urea Nitrogen 21 mg/dL (9-16); Calcium 9.3 mg/dL (8.4-10.2); Carbon Dioxide 26 mmol/L (22-29); Chloride 106 mmol/L (96-108); Creatinine Clr Calc Pharmacy 81.9; Estimated Glomerular Filt Rate > 60; Glucose Random 98 mg/dL (60-115); Lipase 16 U/L (8-78); Potassium 4.6 mmol/L (3.3-5.1); Sodium 141 mmol/L (135-145); Total Protein 7.1 g/dL (6.5-8.0)
[2022-12-17 09:03] LABS: IDNOW Serial# 9DB6401D; Influenza A Negative (Negative); Influenza B2 Negative (Negative)
[2022-12-17 09:09] LABS: COVID-19 Test Negative (Negative); IDNOW Serial# 16C4AD1C
--- NOTE | 2022-12-17 09:10 | ED.NAVMDI ---
HPI - Nausea/Vomiting/Diarrhea General Chief complaint: Abdominal Pain Stated complaint: Diarrhea Time Seen by Provider: 12/17/22 08:40 Source: patient Mode of arrival: ambulatory Limitations: no limitations History of Present Illness HPI Narrative: Patient reports that he underwent a colonoscopy, routine, on 12/12/2022, he reports the following day his stools were becoming more formed, however over the past 4 days, since Thursday, he is experiencing frequent diarrhea, unable to quantify but states it is very frequent, soon after leaving the bathroom he needs to go back. He states it is brown and watery in color. Denies bloody or black stools, denies any is present. Denies associated fevers, chills, nausea, vomiting. Does have diffuse abdominal cramping associated with this. He states that he took Imodium on a single occurrence yesterday which did not make any difference. Denies any known sick contacts. Related Data Home Medications Medication Instructions Recorded Confirmed ascorbate calcium (vitamin C) 500 500 mg PO DAILY 05/08/21 09/25/22 mg tablet zinc 50 mg tablet 50 mg PO DAILY 05/08/21 09/25/22 aspirin 81 mg tablet,delayed 81 mg PO DAILY 08/26/22 09/25/22 release (Adult Low Dose Aspirin) Fish Oil 12/11/22 12/11/22 atorvastatin 20 mg tablet (Lipitor) 20 mg PO DAILY 12/12/22 Previous Rx's Medication Instructions Recorded loperamide 2 mg capsule (Imodium 2 mg PO Q4H PRN loose stool #12 12/17/22 A-D) caps Allergies Allergy/AdvReac Type Severity Reaction Status Date / Time No Known Allergies Allergy Verified 12/12/22 07:02 Review of Systems Review of Systems: Constitutional : No Weight loss, No Fever, No Chills ENT/Mouth :? No sore throat, No Rhinorrhea Eyes: No Swelling, No Redness Cardiovascular : No Chest Pain, No SOB, No Edema Respiratory : No Cough, No Sputum, No Wheezing Gastrointestinal : No Nausea, no Vomiting, positive Diarrhea, positive abdominal pain/ cramping, No Hematochezia, No Melena Genitourinary : No Dysuria, No Urinary Frequency, No Hematuria, No Urgency? Musculoskeletal : No joint pain, No Myalgias, No Joint Swelling Skin : No Skin Lesions, No rash Neuro : No Weakness, No Numbness, No Dizziness, No Headache Psych : No Anxiety/Panic, No Depression Heme/Lymph: No Bruising, No Lymphadenopathy Endocrine : No Polyuria, No Polydipsia Yes all other systems are reviewed and are negative [facility] Past Medical History Attestation statement: The following information was validated with the patient. Source: old records reviewed Medical History Elevated cholesterol GERD (gastroesophageal reflux disease) History of coronary angiogram Hx of fracture of clavicle Wound Surgical History History of bilateral inguinal hernia repair History of mandibular surgery History of surgery on arm Hx of colonoscopy Family History Family History Father Prosthetic valve dysfunction Brother Myocardial infarction complications Mother Pacemaker Social History Social History Housing: House Patient Tobacco Use Status: Never used Tobacco e-Cigarette/Vaping Use: Never Used Second Hand Smoke Exposure: Yes (pt's smokes ) Advance Directives: No Advance Directives Information Provided: Yes service: No Current occupational status: employed and retired Current occupation: [employer] Current occupational exposures/hazards: No Cognitive needs: No Hearing needs: No Vision needs: No Physical Exam Vital Signs: Vital Signs: Last Vital Signs Temp 97.8 F 12/17/22 08:20 Pulse 64 12/17/22 08:20 Resp 16 12/17/22 08:20 BP 126/72 12/17/22 08:20 Pulse Ox 98 12/17/22 08:20 O2 Del Method 12/17/22 08:20 BMI result Body Mass Index 27.8 Appearance: Alert.?Oriented to person, place and time. No acute distress.?Normal affect. Eyes: Pupils equal, round and reactive to light.? ENT: Pharynx normal.?? Neck: Normal inspection.? Neck supple.?? CVS: Heart sounds normal. Normal heart rate and rhythm.? Pulses normal.?? Respiratory: No respiratory distress.? Lung sounds clear to auscultation bilaterally?? Abdomen: Soft and non-tender. No rebound tenderness at McBurney's point. Negative Cotto sign. Normoactive bowel sounds. No pulsatile mass.?? Skin: Skin warm and dry.? Normal skin color.? Extremities: No lower extremity edema.? Neuro: Moves all extremities spontaneously. Sensation intact bilaterally. CN II-XII intact. No focal neuro deficits. Ambulates with normal steady gait. Course Reevaluation(s) Reevaluation #1: CBC reveals no evidence of leukocytosis, no anemia. CMP is overall unremarkable, BUN 21, likely due to mild dehydration, however he is tolerating oral intake, patient encouraged to consume fluids at this time. COVID-19 and influenza testing are negative. Urinalysis is without any evidence of infection. Patient had his follow-up scheduled with GI after colonoscopy 2 days ago, but he canceled the appointment due to his diarrhea. At this point he reports follow-up is not scheduled until March. At this time, I feel that patient is stable for discharge. He has not had any loose stools while in the emergency department over the past 2 hours. Unable to send samples at this time. Instructed on dietary management, Imodium, and outpatient follow-up with primary care provider. All questions answered. Tolerating oral intake at the time of discharge. Time: 10:13 Medical Decision Making Medical Decision Making [facility] Narrative: Patient is a 67-year-old male with past medical history of hyperlipidemia, CAD who presents to the emergency department for evaluation of frequent diarrhea in the setting of recent colonoscopy as noted in HPI. At the time of examination patient is overall well appearing, nontoxic. He is afebrile without tachypnea, hypoxia, or tachycardia. Abdominal examination is benign. At this time not consistent with acute abdomen, there is no rigidity or guarding, low suspicion for appendicitis, diverticulitis, bowel obstruction. Potential for infectious etiology, will obtain CBC, CMP, lipase, COVID-19/influenza testing, and GI panel from stool sample. Reviewed with patient, loose stool/diarrhea can be anticipated after colonoscopy. Differential Diagnosis Differential Diagnoses: The differential diagnosis associated with the presentation includes (As noted above) Lab Data [facility] Lab Attestation statement: I reviewed the patient's lab results. 12/17/22 08:39 12/17/22 08:39 Labs: Lab Results 12/17/22 12/17/22 12/17/22 Range/Units 08:39 08:39 08:39 WBC 6.3 (4.8-10.8) X10*3/uL RBC 4.97 (4.60-5.80) X10*6/uL Hgb 15.0 (14.0-18.0) g/dl Hct 44.6 (42.0-52.0) % MCV 89.7 (80.0-98.0) fL MCH 30.2 (27.0-33.0) pg MCHC 33.6 (31.0-36.0) g/dl RDW 12.4 (11.0-16.0) % Plt Count 181 (160-400) X10*3/uL MPV 10.4 (9.4-12.4) fL Absolute Nucleated RBC 0.000 (0.0-0.012) X10*3/uL Nucleated RBC % (auto) 0.0 (0.0-0.2) /100WBC Sodium 141 (135-145) mmol/L Potassium 4.6 (3.3-5.1) mmol/L Chloride 106 (96-108) mmol/L Carbon Dioxide 26 (22-29) mmol/L Anion Gap 14 (12-20) BUN 21 H (9-16) mg/dL Creatinine 0.96 (0.5-1.4) mg/dL Estim Creat Clear Calc 81.9 Estimated GFR > 60 Random Glucose 98 (60-115) mg/dL Calcium 9.3 (8.4-10.2) mg/dL Total Bilirubin 1.4 H (0.0-1.0) mg/dL Direct Bilirubin 0.3 (0.0-0.5) mg/dL AST 19 (5-37) U/L ALT 14 (0-40) U/L Alkaline Phosphatase 66 (39-117) U/L Total Protein 7.1 (6.5-8.0) g/dL Albumin 4.1 (3.5-5.0) g/dL Lipase 16 (8-78) U/L Urine Color Urine Appearance Urine pH (5.0-9.0) Ur Specific [place] (1.005-1.025) Urine Protein (Neg-Trace) mg/dL Urine Glucose (UA) (Negative) mg/dL Urine Ketones (Negative) mg/dL Urine Blood (Negative) Urine Nitrite (Negative) Ur Leukocyte Esterase (Negative) COVID-19 (YOVANNY) (Negative) COVID-19 Clin Com Influenza Type A (CHARLA) Negative (Negative) Influenza Type B (CHARLA) Negative (Negative) Influenza A & B Note See Note 12/17/22 12/17/22 Range/Units 08:39 09:19 WBC (4.8-10.8) X10*3/uL RBC (4.60-5.80) X10*6/uL Hgb (14.0-18.0) g/dl Hct (42.0-52.0) % MCV (80.0-98.0) fL MCH (27.0-33.0) pg MCHC (31.0-36.0) g/dl RDW (11.0-16.0) % Plt Count (160-400) X10*3/uL MPV (9.4-12.4) fL Absolute Nucleated RBC (0.0-0.012) X10*3/uL Nucleated RBC % (auto) (0.0-0.2) /100WBC Sodium (135-145) mmol/L Potassium (3.3-5.1) mmol/L Chloride (96-108) mmol/L Carbon Dioxide (22-29) mmol/L Anion Gap (12-20) BUN (9-16) mg/dL Creatinine (0.5-1.4) mg/dL Estim Creat Clear Calc Estimated GFR Random Glucose (60-115) mg/dL Calcium (8.4-10.2) mg/dL Total Bilirubin (0.0-1.0) mg/dL Direct Bilirubin (0.0-0.5) mg/dL AST (5-37) U/L ALT (0-40) U/L Alkaline Phosphatase (39-117) U/L Total Protein (6.5-8.0) g/dL Albumin (3.5-5.0) g/dL Lipase (8-78) U/L Urine Color Yellow Urine Appearance Clear Urine pH 6.0 (5.0-9.0) Ur Specific [place] <= 1.005 (1.005-1.025) Urine Protein Negative (Neg-Trace) mg/dL Urine Glucose (UA) Negative (Negative) mg/dL Urine Ketones Negative (Negative) mg/dL Urine Blood Negative (Negative) Urine Nitrite Negative (Negative) Ur Leukocyte Esterase Negative (Negative) COVID-19 (YOVANNY) Negative (Negative) COVID-19 Clin Com See Note Influenza Type A (CHARLA) (Negative) Influenza Type B (CHARLA) (Negative) Influenza A & B Note Independent Historian Clinical information obtained from an independent historian. History obtained from or confirmed by: Spouse (Spouse is present at bedside in confirms history) External Record Review External record reviewed: Outpatient record (Gastroenterology colonoscopy as noted above) Prescription Management I considered prescription management with: Other (Imodium) Discharge Plan Discharge Clinical Impression: Diarrhea Patient Disposition: Home, Self-Care Instructions: Acute Diarrhea (ED), Nutrition Tips for Relief of Diarrhea (ED) Additional Instructions: As we discussed loose stools/diarrhea can be anticipated following a colonoscopy. Furthermore, we discussed potential infectious etiologies of diarrhea. Follow the handout instructions in regards to dietary management of diarrhea. Prescription for Imodium was sent to your pharmacy. Please contact your primary care provider to arrange for a follow-up visit within the next week You may return back to the emergency department with any new or worsening symptoms or concerns. Prescriptions: New loperamide [Imodium A-D] 2 mg capsule 2 mg PO Q4H PRN (Reason: loose stool) Qty: 12 0RF Rx Instructions: administer after each loose stool until symptoms controlled; do not exceed 8 mg per 24 hrs No Action Fish Oil atorvastatin [Lipitor] 20 mg tablet 20 mg PO DAILY zinc 50 mg tablet 50 mg PO DAILY ascorbate calcium (vitamin C) 500 mg tablet 500 mg PO DAILY aspirin [Adult Low Dose Aspirin] 81 mg tablet,delayed release (DR/EC) 81 mg PO DAILY Referrals: Joshua Centeno, [employer] [Primary Care Provider] - Stand Alone Forms: Work/School Release Interventions: ED Discharge Assessment Last Done: 12/17/22 10:15 Discharge Date/Time: 12/17/22 10:16
[2022-12-17 09:28] LABS: Appearance Urine Clear; Color Urine Yellow; Glucose Urine UA Negative (Negative); Leukocyte Esterase Urine Negative (Negative); Nitrite Urine Negative (Negative); Specific Gravity - Urine <= 1.005 (1.005-1.025); Urine Blood Negative (Negative); Urine Ketones Negative (Negative); Urine Protein Negative (Neg-Trace)
== END 2022-12-17 10:16 | disposition home or self-care (01) ==
PROVIDERS: Emergency Provider Student in an Organized Health Care Education/Training Program; PCP Nurse Practitioner Family
DX: R19.7 Diarrhea, unspecified (principal); R10.9 Unspecified abdominal pain; I25.10 Atherosclerotic heart disease of native coronary artery without angina pectoris; Z20.822 Contact with and (suspected) exposure to COVID-19; Z20.828 Contact with and (suspected) exposure to other viral communicable diseases; Z79.899 Other long term (current) drug therapy
CPT/HCPCS: 36415; 80048; 80076; 81003; 83690; 85027; 87502; 87635; 99283; 99284

== ENCOUNTER 2023-02-09 08:46 | Outpatient (REF) | payer MEDICARE, SELFPAY ==
--- NOTE | ~2023-02-09 | XR_ITS ---
EXAMINATION: XR PELVIS CLINICAL INFORMATION: Pain COMPARISON: Bilateral hip x-ray January 2022 TECHNIQUE: AP view of the pelvis. FINDINGS: Bone alignment is normal. No fracture or dislocation. There is mild bilateral hip arthritis with joint space narrowing and osteophyte formation, left greater than right. Bones of the pelvis are normal. There are degenerative changes of the visualized lower lumbar spine. Soft tissues are normal. XR/XR pelvis 1-2V IMPRESSION: Mild bilateral hip osteoarthritis
== END 2023-02-09 08:47 | disposition home or self-care (01) ==
LOC: HO.HOSX 08:46
PROVIDERS: Visit Provider Orthopaedic Surgery
DX: M16.0 Bilateral primary osteoarthritis of hip (principal); R26.9 Unspecified abnormalities of gait and mobility
CPT/HCPCS: 72170; 99202

== ENCOUNTER 2023-03-17 05:55 | Outpatient (REF) | payer MEDICARE, SELFPAY ==
--- NOTE | ~2023-03-17 | FL_ITS ---
EXAMINATION: XR FLUOROSCOPY WITH IMAGES CLINICAL INFORMATION: M25.552 - Pain in left hip COMPARISON: Pelvic radiograph 02/09/2023 TECHNIQUE: Fluoroscopy Supervised By: Dr. Chaparro Santos. Fluoroscopy Time: 0.2 minutes. Cumulative Dose: 6.29 mGy. DAP: 0.104 Gycm2. Images: 1. FINDINGS: There is a spinal needle overlying the superior lateral hip joint with contrast in the joint capsule. There are degenerative changes PIP joints again noted similar to the pelvic radiograph. FL/FL guidance in treatment room IMPRESSION: Fluoroscopy for pain management procedure.
== END 2023-03-17 05:56 | disposition home or self-care (01) ==
LOC: CF 05:55
PROVIDERS: Visit Provider Anesthesiology
DX: M16.0 Bilateral primary osteoarthritis of hip (principal); R26.9 Unspecified abnormalities of gait and mobility
CPT/HCPCS: 20610; J2795; J3301; Q9967

== ENCOUNTER 2023-03-20 06:01 | Outpatient (REF) | payer MEDICARE, SELFPAY ==
[2023-03-20 12:24] LABS: Cholesterol 180 mg/dL; HDL Cholesterol 66 mg/dL; LDL Cholesterol Calculated 100 mg/dl; Triglycerides 74 mg/dL
== END 2023-03-20 06:02 | disposition home or self-care (01) ==
LOC: HO.HMGCLDS 06:01
PROVIDERS: PCP Nurse Practitioner Family; Visit Provider Nurse Practitioner Family
DX: E78.5 Hyperlipidemia, unspecified (principal)
CPT/HCPCS: 36415; 80061

== ENCOUNTER → 2023-04-15 08:18 | Outpatient (BNVA) | payer MEDICARE, SELFPAY | PROVIDERS: PCP Nurse Practitioner Family; Visit Provider Anesthesiology | DX: M16.0 Bilateral primary osteoarthritis of hip (principal); M25.552 Pain in left hip; R26.9 Unspecified abnormalities of gait and mobility | CPT/HCPCS: 99202 ==

== ENCOUNTER → 2023-04-20 14:39 | Outpatient (BNVA) | payer MEDICARE, SELFPAY | PROVIDERS: PCP Nurse Practitioner Family; Referring Provider Nurse Practitioner Family; Visit Provider Internal Medicine | DX: I25.10 Atherosclerotic heart disease of native coronary artery without angina pectoris (principal); I77.89 Other specified disorders of arteries and arterioles; I35.9 Nonrheumatic aortic valve disorder, unspecified | CPT/HCPCS: 93005; 99212 ==

== ENCOUNTER → 2023-07-27 08:50 | Outpatient (BNVA) | payer MEDICARE, SELFPAY | PROVIDERS: PCP Nurse Practitioner Family; Visit Provider Orthopaedic Surgery ==

== ENCOUNTER → 2023-09-29 08:46 | Outpatient (BNVA) | payer MEDICARE, SELFPAY | PROVIDERS: PCP Nurse Practitioner Family; Visit Provider Orthopaedic Surgery ==

== ENCOUNTER 2023-10-14 06:08 | Outpatient (REF) | payer MEDICARE, SELFPAY ==
[2023-10-14 11:16] LABS: MANUAL DIFF FLAG NO
[2023-10-14 11:36] LABS: Basophils Percent Auto 0.5 % (0-2); Eosinophils Absolute Auto 0.3 X10*3/uL (0.0-0.4); Eosinophils Percent Auto 4.9 % (0-4); Hematocrit 42.7 % (42.0-52.0); Hemoglobin 14.2 g/dl (14.0-18.0); Imm Gran Abs Auto 0.01 X10*3/uL (0.00-0.03); Imm Gran Pct Auto 0.2 % (0.0-0.4); Lymphocytes Absolute Auto 2.1 X10*3/uL (1.2-4.9); Lymphocytes Percent Auto 37.3 % (20-40); Mean Corpuscular HGB Conc 33.3 g/dl (31.0-36.0); Mean Corpuscular Hemoglobin 30.7 pg (27.0-33.0); Mean Corpuscular Volume 92.2 fL (80.0-98.0); Mean Platelet Volume 11.8 fL (9.4-12.4); Monocytes Absolute Auto 0.7 X10*3/uL (0.1-1.2); Monocytes Percent Auto 11.8 % (2-11); Neutrophils Absolute Auto 2.5 x10*3/uL (2.0-8.3); Neutrophils Percent Auto 45.3 % (45-73); Platelet Count 166 X10*3/uL (160-400); Red Blood Count 4.63 X10*6/uL (4.60-5.80); Red Cell Distribution Width 12.3 % (11.0-16.0); White Blood Count 5.5 X10*3/uL (4.8-10.8)
[2023-10-14 11:48] LABS: Appearance Urine Clear; Color Urine Yellow; Glucose Urine UA Negative (Negative); Leukocyte Esterase Urine Negative (Negative); Nitrite Urine Negative (Negative); PH 6.5 (5.0-9.0); Specific Gravity - Urine <= 1.005 (1.005-1.025); Urine Blood Negative (Negative); Urine Ketones Negative (Negative); Urine Protein Negative (Neg-Trace)
[2023-10-14 12:06] LABS: Prostate Specific Antigen Scr 1.94 ng/mL (<0.05-4.0)
[2023-10-14 12:22] LABS: Alanine Aminotransferase 27 U/L (0-40); Albumin Level 4.2 g/dL (3.5-5.0); Alkaline Phosphatase 58 U/L (39-117); Anion Gap 11 (12-20); Aspartate Amino Transferase 35 U/L (5-37); Bilirubin Total 1.3 mg/dL (0.0-1.0); Blood Urea Nitrogen 18 mg/dL (9-16); Calcium 9.2 mg/dL (8.4-10.2); Carbon Dioxide 27 mmol/L (22-29); Chloride 106 mmol/L (96-108); Cholesterol 154 mg/dL (<200); Estimated Glomerular Filt Rate > 60; Glucose Fasting 103 mg/dL (60-99); HDL Cholesterol 63 mg/dL (>40); LDL Cholesterol Calculated 79 mg/dL (<100); Potassium 3.9 mmol/L (3.3-5.1); Sodium 140 mmol/L (135-145); Total Protein 7.3 g/dL (6.5-8.0); Triglycerides 63 mg/dL (<150)
== END 2023-10-14 06:09 | disposition home or self-care (01) ==
LOC: HO.HMGCLDS 06:08
PROVIDERS: PCP Nurse Practitioner Family; Visit Provider Nurse Practitioner Family
DX: Z12.5 Encounter for screening for malignant neoplasm of prostate (principal); E78.5 Hyperlipidemia, unspecified
CPT/HCPCS: 36415; 80053; 80061; 81003; 84153; 84443; 85025

== ENCOUNTER 2023-10-15 07:27 | Outpatient (AMB) | payer MEDICARE, SELFPAY ==
--- NOTE | 2023-10-15 07:33 | A.OFFPC_ITS ---
Vital Signs 10/15/23 07:37 Height 6 ft Weight 201 lb BMI 27.3 BP 102/62 Blood Pressure Location Rt brachial Position Sitting Pulse 50 Pulse Source Pulse Oximeter Pulse Oximetry (%) 98 Oxygen Delivery Method Room Air Intake Visit Reasons: Annual PE/pre-op left hip replacement Allergies No Known Allergies Allergy (Verified 10/15/23 07:39) Medication List - Last Reconciled 10/15/23 by CASSIDY Marcial ascorbate calcium (vitamin C) 500 mg PO DAILY aspirin (Adult Low Dose Aspirin) 81 mg PO DAILY atorvastatin 80 mg PO QPM loperamide (Imodium A-D) 2 mg PO Q4H PRN walker Folding Front wheeled walker zinc 50 mg PO DAILY Tobacco use date assessed: 10/15/23 Fall risk assessment: No Falls in past year Last assessed Fall Risk: 10/15/23 Dental Screening Dental Screen Date: 10/15/23 Did you have a dental visit in the last 12 months?: Yes Did you have a dental problem in the last 6 months where you did not have access to dental care?: No Was dental information given to patient?: Patient has dentist HPI Annual PE/pre-op left hip replacement HPI Details Pt is here for a PE. Labs were already performed. Colon screen is up to date. PSA is up to date. Pt reports that he does not feel like he is emptying his bladder completely. Denies weak stream, dribbling with urination, and frequent nocturia. Pt is also here for a pre-op. Pt is having an LHA on 10/27. He already had cardiac clearance. Pt is cleared for surgery from my standpoint. Pt reports slipping and falling in the bathroom recently. He developed groin discomfort. No signs of inguinal hernia or ecchymosis, will continue to monitor. [facility] Medical History Elevated cholesterol Hx of fracture of clavicle History of coronary angiogram GERD (gastroesophageal reflux disease) Wound Surgical History History of mandibular surgery Hx of colonoscopy History of surgery on arm History of bilateral inguinal hernia repair Family History Father Prosthetic valve dysfunction Brother Myocardial infarction complications Mother Pacemaker Social History Housing: House Patient Tobacco Use Status: Never used Tobacco e-Cigarette/Vaping Use: Never Used Second Hand Smoke Exposure: Yes (pt's smokes ) service: No Current occupational status: employed and retired Current occupation: [employer] Current occupational exposures/hazards: No Cognitive needs: No Hearing needs: No Vision needs: No Questionnaire PHQ-9 Over the last 2 weeks, how often have you been bothered by any of the following problems? 1. Little interest or pleasure in doing things: not at all 2. Feeling down, depressed, or hopeless: not at all 3. Trouble falling or staying asleep, or sleeping too much: not at all 4. Feeling tired or having little energy: not at all 5. Poor appetite or overeating: not at all 6. Feeling bad about yourself - or that you are a failure or have let yourself or your family down: not at all 7. Trouble concentrating on things, such as reading the newspaper or watching television: not at all 8. Moving or speaking so slowly that other people could have noticed. Or the opposite - being so fidgety or restless that you have been moving around a lot more than usual: not at all 9. Thoughts that you would be better off or of hurting yourself in some way: not at all Total score: 0 Depression Screening Interpretation: Negative Depression Screening Done: Yes 80715 - PHQ-9 Billing: Yes Source: Developed by Drs. Alexx Young, Jeanette Hernandez, Gio Howard and colleagues, with an educational monie from [employer]. Thrive Questionnaire Date Thrive assessed: 10/15/23 I am a: Patient What is your living situation today?: I have a steady place to live Within the past 12 months, did the food you bought not last and you didn't have the money to get more?: Never true Within the past 12 months, did you worry whether your food would run out before you got money to buy more?: Never true Do you have trouble paying for medicines?: No Do you have trouble getting transportation to medical appointments?: No Do you have trouble paying your heating and electricity bill?: No Do you have trouble taking care of your child, family member or friend?: No Do you have trouble with day-to-day activities such as bathing, preparing meals, shopping, managing finances, etc.?: No Are you currently unemployed and looking for a job?: No Are you interested in more education?: Yes AUDIT C Alcohol Use Questionnaire (AUDIT-C) 1. How often do you have a drink containing alcohol?: 4 or more times a week 2. How many drinks containing alcohol do you have on a typical day when you are drinking?: 1 or 2 3. How often do you have six or more drinks on one occasion?: Never Total Score: 4 Score Reviewed/Action Taken: No DRAKE-7 AMB Questionnaire DRAKE-7 Date DRAKE - 7 assessed: 10/15/23 Feeling nervous, anxious, or on edge: 0 = Not at all Not being able to stop or control worryin = Not at all Worrying too much about different things: 0 = Not at all Trouble relaxin = Not at all Being so restless that it is hard to sit still: 0 = Not at all Becoming easily annoyed or irritable: 0 = Not at all Feeling afraid as if something awful might happen: 0 = Not at all Total DRAKE-7 score (0-4 normal; 5-9 mild; 10-14 moderate; 15-21 severe): 0 Source: Developed by Drs. Alexx Young, Jeanette Hernandez, Gio Howadr and colleagues, with an educational monie from [employer]. DRAKE-7 Assessment Billing DRAKE-7 Assessment Tool: DRAKE-7 Assessment 73698 Review of Systems Const Denies chills and Denies fever(s) Eyes Denies blurry vision ENT Denies vertigo, Denies dizziness and Denies sore throat Card Denies chest pain at rest, Denies chest pain with activity, Denies diaphoresis, Denies dyspnea and Denies dyspnea on exertion Resp Denies cough, Denies dyspnea, Denies dyspnea on exertion and Denies wheezing GI Denies abdominal pain, Denies melena, Denies hematochezia, Denies constipation, Denies diarrhea and Denies loose stools Denies hematuria Musc Denies numbness and Denies tingling Skin/Breast Denies lesions Neuro Denies vertigo, Denies dizziness, Denies numbness and Denies tingling Psych Denies anxiety, Denies depression, Denies homicidal ideation, Denies suicidal ideation and Denies other (substance abuse) Aller/Immun Denies wheezing Physical exam (Primary Care) Vital Signs: Last Vital Signs Pulse 50 10/15/23 07:37 BP 102/62 10/15/23 07:37 Pulse Ox 98 10/15/23 07:37 Oxygen Delivery Method Room Air 10/15/23 07:37 BMI result Body Mass Index 27.3 Tobacco/Smoking Status: Tobacco use Status Tobacco use date assessed 10/15/23 10/15/23 07:41 Patient Tobacco Use Status Never used Tobacco 10/15/23 07:33 e-Cigarette/Vaping Use Never Used 10/15/23 07:33 Depression Screening Interpretation: Negative Thrive Assessment: Date of Thrive Assessment Date Thrive assessed 03/24/23 10/15/23 07:33 Const General: cooperative Nutritional Appearance: well nourished Orientation/consciousness: patient oriented x3 HENMT Head: Yes normal to inspection, Yes normocephalic and Yes atraumatic Ears: TM's normal bilaterally Eyes General: appearance normal, both eyes and all related structures Alignment and Position: alignment normal and position normal Neck Neck: Yes normal visual inspection and Yes no lymphadenopathy Thyroid: Thyroid normal Resp Effort & Inspection: normal respiratory effort Auscultation: clear to auscultation bilaterally Cardio Rate: regular rate Rhythm: regular rhythm Heart sounds: S1 normal heart sound present, S2 normal heart sound present and Murmur heart sound present GI Palpation (GI): Soft to palpation and nontender Auscultation: normal bowel sounds Other: SHAGUFTA: prostate smooth central groove, very slightly enlarged, no signs of inguinal hernia or ecchymosis of groin Male General Exam: Yes normal external exam Penis: normal penis Scrotum: scrotum normal, testes descended bilaterally and no inguinal hernias Testes: no testicular mass Skin Rashes: no rashes Neuro General: patient oriented x3, moves all extremities, no focal motor deficits and deep tendon reflexes 2+ bilaterally Romberg Test: Negative Psych Appearance: grossly normal Mental Status: mental status grossly normal Speech and movement: Normal speech and movement present Affect: normal affect Attitude: cooperative Thought process: Normal thought process present Thought content: Normal thought content present Insight: Good insight present (Psych) Judgement: Good judgement present (Psych) Assessment and Plan Assessment & Plan (1) Physical exam: Code(s): Z00.00 - Encounter for general adult medical examination without abnormal findings (2) Pre-op evaluation: Code(s): Z01.818 - Encounter for other preprocedural examination Plan The patient agreed to the use of a medical office technology instructor for this encounter. Scribed for CASSIDY Elias by Tamika Bloom medical office technology instructor, on 10/15/2023 at 08:05 EST. Orders: Orders AMB EKG-In Office Today Z01.818 - Encounter for other preprocedural examination Coding Level of Care Code Est Pt Prev Care >65y(45116) Diagnoses Physical exam Z00.00 Pre-op evaluation Z01.818 Additional Codes DRAKE-7 Assessment Billing - DRAKE-7 Assessment Tool: DRAKE-7 Assessment 14586 ([id number])
[2023-10-15 07:37] VITALS: BP 102/62; PULSE 50; O2SAT 98; BMI 27.3
== END 2023-10-15 08:16 | disposition home or self-care (01) ==
PROVIDERS: PCP Nurse Practitioner Family; Visit Provider Nurse Practitioner Family
DX: Z01.818 Encounter for other preprocedural examination (principal)
CPT/HCPCS: 93000; 99213

== ENCOUNTER 2023-10-22 09:41 | Outpatient (AMB) | payer MEDICARE, SELFPAY ==
[2023-10-22 09:43] VITALS: BMI 27.3
--- NOTE | 2023-10-22 09:43 | MHC.OFFVIS ---
Intake Vital Signs 10/22/23 09:43 Height 6 ft Weight 201 lb BMI 27.3 Intake Visit Reasons: Preop-LT THANH 10/27/23 NE Intake Note: Angel 68 yr old male presents today for his Pre op visit for his left THANH that is schedule for 10/27/[address] Reilly. Pain management agreement signed and reviewed. Allergies No Known Allergies Allergy (Verified 10/22/23 09:47) Medication List - Last Reconciled 10/22/23 by Wu Wilkins PA-C ascorbate calcium (vitamin C) 500 mg PO DAILY aspirin (Adult Low Dose Aspirin) 81 mg PO DAILY atorvastatin 80 mg PO QPM loperamide (Imodium A-D) 2 mg PO Q4H PRN walker Folding Front wheeled walker zinc acetate 50 mg PO DAILY HPI HPI Comments History of Present Illness Details Mr Vogel presents to the office today for preop visit. He is scheduled for left total hip arthroplasty with Dr. Reilly. He continues to have ongoing pain and difficulty with ambulation in the left hip, which is affecting his quality of life; therefore, he has elected to move forward with surgery. [facility] Medical History (Updated 10/19/23 @ 12:00 by Consuelo Choi RN) Aortic valve calcification CAD (coronary artery disease) Osteoarthritis Ascending aorta enlargement Elevated cholesterol History of coronary angiogram GERD (gastroesophageal reflux disease) Surgical History (Updated 10/19/23 @ 12:03 by Consuelo Choi RN) History of surgery History of esophagogastroduodenoscopy (EGD) History of mandibular surgery Hx of colonoscopy History of surgery on arm History of bilateral inguinal hernia repair Family History Father Prosthetic valve dysfunction Brother Myocardial infarction complications Mother Pacemaker Social History Housing: House Are you a primary manager of care to a significant other at home: No Do you presently have visiting nurse or other home services: No Patient Tobacco Use Status: Never used Tobacco e-Cigarette/Vaping Use: Never Used Second Hand Smoke Exposure: Yes (pt's smokes ) service: No Current occupational status: employed and retired Current occupation: [employer] Current occupational exposures/hazards: No Cognitive needs: No Hearing needs: No Vision needs: No Review of Systems Const All systems reviewed & are unremarkable except as noted in HPI and below Physical Exam Vital Signs: BMI result Body Mass Index 27.3 Const General: cooperative and no acute distress Orientation/consciousness: patient oriented x3 HEENT Head: Yes normal to inspection, Yes normocephalic and Yes atraumatic Eyes General: appearance normal, both eyes and all related structures Neck Neck: Yes normal visual inspection and Yes no lymphadenopathy Resp Effort & Inspection: normal respiratory effort and able to speak in complete sentences Cardio Rate: regular rate Peripheral pulses: Peripheral pulses 2+ throughout GI Inspection: Yes normal to inspection Palpation (GI): Soft to palpation Skin General skin exam: no rashes or lesions noted Neuro General: patient oriented x3 Extrem Other: Left hip: Skin intact. No open wound or abrasions. He has pain with ROM and hip flexion. NVI. Psych Appearance: grossly normal Mental Status: mental status grossly normal Assessment & Plan Assessment & Plan (1) Bilateral primary osteoarthritis of hip: Code(s): M16.0 - Bilateral primary osteoarthritis of hip Plan I discussed in detail the procedure and what to expect pre and post operatively. We discussed the risks, benefits and alternatives to the surgery as well as the rehabilitation course. The risks; which include, but are not limited to infection, bleeding, nerve injury, ongoing pain, swelling, and stiffness, perioperative risk of injury to bones and soft tissues, and blood clots. I?ve answered all questions and with their understanding they have consented to move forward with Left total hip arthroplasty with Dr. Reilly Patient Instructions: Scribed for Wu Wilkins PA-C, by Brant Sahu medical diagnostic radiographer, on 10/22/2023 at 9:45 AM EST. IWu PA-C, have personally reviewed and agree with the information entered by the scribe. Coding Level of Care Code Est Pt Level 3 (56849) Diagnoses Bilateral primary osteoarthritis of hip M16.0
== END 2023-10-22 10:03 | disposition home or self-care (01) ==
PROVIDERS: PCP Nurse Practitioner Family; Visit Provider Physician Assistant
DX: M16.0 Bilateral primary osteoarthritis of hip (principal)
CPT/HCPCS: 99024

== ENCOUNTER → 2023-10-22 09:41 | Outpatient (BNVA) | payer MEDICARE, SELFPAY | PROVIDERS: PCP Nurse Practitioner Family; Visit Provider Physician Assistant | DX: Z01.818 Encounter for other preprocedural examination (principal); M16.0 Bilateral primary osteoarthritis of hip | CPT/HCPCS: 99212 ==

== ENCOUNTER 2023-10-27 09:45 | Inpatient (IN) | payer MEDICARE, SELFPAY ==
[2023-10-19 12:05] VITALS: BP 113/59; PULSE 56; RESP 20; O2SAT 97; BMI 27.3
--- NOTE | 2023-10-19 12:19 | P.CONAN_ITS ---
Documented by User: Gema Mosquera NP 10/26/23 08:41 HPI - Anesthesia Eval Consult details Narrative: 68yo M for Left Hip Total Replacement Medically cleared Cardiac cleared No recent illness No CP/SOB within limits of pain CAD. Nonobstructive CAD by cath 08/2022. Stable per last cardiac office visit 04/2023 GERD. PRN pepcid rare PMFSH Active Problems Active Problems: All Active Problems (Updated 10/19/23 @ 12:00 by Consuelo Choi RN) Pre-op evaluation (Acute) Abnormal gait (Acute) Left hip pain (Acute) Bilateral primary osteoarthritis of hip (Acute) Coronary artery disease (Acute) Abnormal nuclear stress test (Acute) Hyperlipidemia (Acute) S/P cardiac catheterization (Acute) Wound (Acute) Epididymitis (Acute) Elevated fasting blood sugar (Acute) Diarrhea (Acute) Preoperative cardiovascular examination (Acute) Screening for colon cancer (Acute) Screening PSA (prostate specific antigen) (Acute) Physical exam (Acute) Aortic valve calcification (Acute) Ascending aorta enlargement (Acute) Precordial chest pain (Acute) Past Medical History Medical History Aortic valve calcification CAD (coronary artery disease) Osteoarthritis Ascending aorta enlargement Elevated cholesterol History of coronary angiogram GERD (gastroesophageal reflux disease) Family History Family History Father Prosthetic valve dysfunction Brother Myocardial infarction complications Mother Pacemaker Family history of problems with anesthesia: No Surgical History Surgical History History of surgery History of esophagogastroduodenoscopy (EGD) History of mandibular surgery Hx of colonoscopy History of surgery on arm History of bilateral inguinal hernia repair History of Problems with Anesthesia: No Social History Social History Housing: House Are you a primary healthcare financial analyst to a significant other at home: No Do you presently have visiting nurse or other home services: No Patient Tobacco Use Status: Never used Tobacco e-Cigarette/Vaping Use: Never Used Second Hand Smoke Exposure: Yes (pt's smokes ) Use of substances other than those prescribed or required for medical reasons: No Have you been hit, kicked, punched, or otherwise hurt by someone within the past year? If so, by whom?: No Are you DNR?: No Advance Directives: No ( is primary contact) Advance Directives Information Provided: Yes Advance Directives on File: No Recently lost weight without trying: No Eating poorly because of decreased appetite: No Nutrition Risks: No Nutritional Risk Poor oral hygiene: Yes (broken teeth in past w/fractured jaw and were filed- sees dentist regularly) service: No Current occupational status: employed and retired Current occupation: [employer] Current occupational exposures/hazards: No Cognitive needs: No Hearing needs: No Vision needs: No Meds Allergies Allergy/AdvReac Type Severity Reaction Status Date / Time No Known Allergies Allergy Verified 10/27/23 09:40 Home Medications Medication Instructions Recorded Confirmed Last Taken Type ascorbate calcium (vitamin C) 500 500 mg PO DAILY 05/08/21 10/22/23 Unknown History mg tablet aspirin 81 mg tablet,delayed 81 mg PO DAILY 08/26/22 10/22/23 12/04/22 History release (Adult Low Dose Aspirin) zinc acetate 50 mg (zinc) capsule 50 mg PO DAILY 10/16/23 10/22/23 Unknown History Exam Height,Weight and Vital Signs: Height 6 ft Weight 91.172 kg Last Vital Signs Pulse 56 10/19/23 12:05 Resp 20 10/19/23 12:05 BP 113/59 L 10/19/23 12:05 Pulse Ox 97 10/19/23 12:05 O2 Del Method Room Air 10/19/23 12:05 Pertinent Lab Results Pertinent Lab Results: Laboratory Tests 10/14/23 06:19 WBC 5.5 Hgb 14.2 Hct 42.7 Plt Count 166 Sodium 140 Potassium 3.9 Chloride 106 Carbon Dioxide 27 BUN 18 H Creatinine 0.87 Narrative Narrative: EKG 10/2023 SB @ 49 Airway Mallampati Class: I TM Dist: >3cm Neck ROM: Full Heart: RRR Lungs: CTAB Assessment and Plan Assessment Anesthesia Assessment: Anesthesia Plan Discussed and PAT Visit Final Anesthetic Review Family History of Problems with Anesthesia: No History of Problems with Anesthesia: No Documented by User: Lili Doran MD 10/27/23 12:09 [facility] Active Problems Active Problems: All Active Problems (Updated 10/27/23 @ 11:50 by Lili Doran MD) Pre-op evaluation (Acute) Abnormal gait (Acute) Left hip pain (Acute) Bilateral primary osteoarthritis of hip (Acute) Coronary artery disease (Acute) Abnormal nuclear stress test (Acute) Hyperlipidemia (Acute) S/P cardiac catheterization (Acute) 08/2022- non-obstructive CAD distal left main, mid LAD Wound (Acute) Epididymitis (Acute) Elevated fasting blood sugar (Acute) Diarrhea Preoperative cardiovascular examination (Acute) Screening for colon cancer (Acute) Screening PSA (prostate specific antigen) (Acute) Physical exam (Acute) Aortic valve calcification (Acute) Ascending aorta enlargement (Acute) 3.9cm Precordial chest pain (Acute) 04/2021 Past Medical History Medical History Aortic valve calcification CAD (coronary artery disease) Osteoarthritis Ascending aorta enlargement Elevated cholesterol History of coronary angiogram GERD (gastroesophageal reflux disease) Family History Family History Father Prosthetic valve dysfunction Brother Myocardial infarction complications Mother Pacemaker Surgical History Surgical History History of surgery History of esophagogastroduodenoscopy (EGD) History of mandibular surgery Hx of colonoscopy History of surgery on arm History of bilateral inguinal hernia repair Social History Social History Housing: House Are you a primary healthcare financial analyst to a significant other at home: No Do you presently have visiting nurse or other home services: No Patient Tobacco Use Status: Never used Tobacco e-Cigarette/Vaping Use: Never Used Second Hand Smoke Exposure: Yes (pt's smokes ) Use of substances other than those prescribed or required for medical reasons: No Have you been hit, kicked, punched, or otherwise hurt by someone within the past year? If so, by whom?: No Are you DNR?: No Advance Directives: No ( is primary contact) Advance Directives Information Provided: Yes Advance Directives on File: No Recently lost weight without trying: No Eating poorly because of decreased appetite: No Nutrition Risks: No Nutritional Risk Poor oral hygiene: Yes (broken teeth in past w/fractured jaw and were filed- sees dentist regularly) service: No Current occupational status: employed and retired Current occupation: [employer] Current occupational exposures/hazards: No Cognitive needs: No Hearing needs: No Vision needs: No Meds Allergies Allergy/AdvReac Type Severity Reaction Status Date / Time No Known Allergies Allergy Verified 10/27/23 09:40 Home Medications Medication Instructions Recorded Confirmed Last Taken Type ascorbate calcium (vitamin C) 500 500 mg PO DAILY 05/08/21 10/22/23 Unknown History mg tablet aspirin 81 mg tablet,delayed 81 mg PO DAILY 08/26/22 10/22/23 12/04/22 History release (Adult Low Dose Aspirin) zinc acetate 50 mg (zinc) capsule 50 mg PO DAILY 10/16/23 10/22/23 Unknown History Exam Height,Weight and Vital Signs: Vital Signs Temp Pulse Resp BP Pulse Ox O2 Del Method 10/27/23 10:16 97.0 F 53 16 135/73 98 Room Air Height 6 ft Weight 91.172 kg Last Vital Signs Pulse 56 10/19/23 12:05 Resp 20 10/19/23 12:05 BP 113/59 L 10/19/23 12:05 Pulse Ox 97 10/19/23 12:05 O2 Del Method Room Air 10/19/23 12:05 Pertinent Lab Results Pertinent Lab Results: Laboratory Tests 10/14/23 06:19 WBC 5.5 Hgb 14.2 Hct 42.7 Plt Count 166 Sodium 140 Potassium 3.9 Chloride 106 Carbon Dioxide 27 BUN 18 H Creatinine 0.87 Lab Results 10/19/23 10/19/23 Range/Units 12:20 12:54 Nasal Screen MRSA (PCR) NEGATIVE (Negative) Nasal S. aureus Screen NEGATIVE (Negative) Nasal MRSA/S.aureus Interp SEE NOTE Blood Type A Positive Antibody Screen NEGATIVE Airway Mallampati Class: II Loose/Missing/Broken Teeth: Yes (Some broken teeth) Assessment and Plan Final Anesthetic Review ASA Class: III Patient Risk: Intermediate Assessment/Block/Sedation in SS: Assess/Block/Sedation-SS Documented by User: Betsey Aguilar MD 10/27/23 10:33 PMFSH Past Medical History Medical History Aortic valve calcification CAD (coronary artery disease) Osteoarthritis Ascending aorta enlargement Elevated cholesterol History of coronary angiogram GERD (gastroesophageal reflux disease) Family History Family History Father Prosthetic valve dysfunction Brother Myocardial infarction complications Mother Pacemaker Surgical History Surgical History History of surgery History of esophagogastroduodenoscopy (EGD) History of mandibular surgery Hx of colonoscopy History of surgery on arm History of bilateral inguinal hernia repair Social History Social History Housing: House Are you a primary healthcare financial analyst to a significant other at home: No Do you presently have visiting nurse or other home services: No Patient Tobacco Use Status: Never used Tobacco e-Cigarette/Vaping Use: Never Used Second Hand Smoke Exposure: Yes (pt's smokes ) Use of substances other than those prescribed or required for medical reasons: No Have you been hit, kicked, punched, or otherwise hurt by someone within the past year? If so, by whom?: No Are you DNR?: No Advance Directives: No ( is primary contact) Advance Directives Information Provided: Yes Advance Directives on File: No Recently lost weight without trying: No Eating poorly because of decreased appetite: No Nutrition Risks: No Nutritional Risk Poor oral hygiene: Yes (broken teeth in past w/fractured jaw and were filed- sees dentist regularly) service: No Current occupational status: employed and retired Current occupation: [employer] Current occupational exposures/hazards: No Cognitive needs: No Hearing needs: No Vision needs: No Meds Allergies Allergy/AdvReac Type Severity Reaction Status Date / Time No Known Allergies Allergy Verified 10/27/23 09:40 Home Medications Medication Instructions Recorded Confirmed Last Taken Type ascorbate calcium (vitamin C) 500 500 mg PO DAILY 05/08/21 10/22/23 Unknown History mg tablet aspirin 81 mg tablet,delayed 81 mg PO DAILY 08/26/22 10/22/23 12/04/22 History release (Adult Low Dose Aspirin) zinc acetate 50 mg (zinc) capsule 50 mg PO DAILY 10/16/23 10/22/23 Unknown History Assessment and Plan Assessment Anesthesia Assessment: Chart Reviewed Final Anesthetic Review NPO: Yes ASA Class: II Final Preanesthetic Review: No Changes in Pt Med Stat, Meds/Allgs Chart Reviewed, Consent Obtained/Reviewed and Anes Risks/Benef Reviewed Patient Risk: Low Procedure Risk: Intermediate Anesthetic Plan Anesthetic Plan: GA Disposition: Standard PACU
[2023-10-20 12:07] LABS: MRSA Nasal PCR NEGATIVE (Negative); SA Nasal PCR NEGATIVE (Negative)
[2023-10-27] VITALS (15 sets, daily range): BP systolic 109–135; BP diastolic 67–89; PULSE 53–89; RESP 11–18; TEMP 36.1–37; O2SAT 96–100; BMI 27.1
--- NOTE | ~2023-10-27 | XR_ITS ---
EXAMINATION: XR PELVIS CLINICAL INFORMATION: Left total hip arthroplasty. COMPARISON: Pelvic radiographs 02/09/2023. TECHNIQUE: AP view of the pelvis. FINDINGS: Prosthetic components of the left total hip arthroplasty are appropriately aligned. No periprosthetic fracture. Gas from recent surgery is present in the surrounding soft tissues. Surgical skin stanislav are noted adjacent to the left hip. XR/XR pelvis 1-2V IMPRESSION: Expected immediate postoperative appearance following a left total hip arthroplasty. No significant radiographic abnormality.
--- OUTSIDE RECORDS SUMMARY | 2023-10-27 09:48 | XMS_ITS | Continuity of Care Document ---
Author Name Unknown Organization [facility] ter Address [address] [place] [id number]- Care Team Providers Care Submarine Operator Name Role Phone Jacobo KIMBROUGH, Joshua Pierce Primary Care Physician Encounter [facility] [place] [facility] Date(s): 04/23/22 - 09/18/[address] [address]- Attending Physician: Carlito Zacarias MD Admitting Physician: Carlito Zacarias MD Referring Physician: Carlito Zacarias MD Allergies, Adverse Reactions, Alerts No Known Allergies Medications aspirin 81 mg oral delayed release tablet 1 tablet = 81 mg, By Mouth, Daily, # 30 tablet, 0 Refills, Maintenance, 09/02/22 7:09:00 EDT, CR Tablet, Partial fill upon patient request if the prescription is for a schedule II opioid drug. Start Date: 09/02/22 Status: Ordered atorvastatin 20 mg oral tablet 1 tablet = 20 mg, By Mouth, Daily, # 30 tablet, 0 Refills, Maintenance, 09/02/22 7:09:00 EDT, Tablet, Partial fill upon patient request if the prescription is for a schedule II opioid drug. Start Date: 09/02/22 Status: Ordered Fish Oil 1000 mg oral capsule 1 capsule = 1,000 mg, By Mouth, Daily, 0 Refills, Maintenance, 09/02/22 7:11:00 EDT, Partial fill upon patient request if the prescription is for a schedule II opioid drug. Start Date: 09/02/22 Status: Ordered Vitamin C 500 mg oral tablet 1 tablet = 500 mg, By Mouth, Daily, # 30 tablet, 0 Refills, Maintenance, 09/02/22 7:10:00 EDT, Tablet, Partial fill upon patient request if the prescription is for a schedule II opioid drug. Start Date: 09/02/22 Status: Ordered zinc (as gluconate) 50 mg oral tablet 1 tablet = 50 mg, By Mouth, Daily, # 30 tablet, 0 Refills, Maintenance, 09/02/22 7:10:00 EDT, Tablet, Partial fill upon patient request if the prescription is for a schedule II opioid drug. Start Date: 09/02/22 Status: Ordered Patient Care team information Personnel Name: Joshua Centeno NP Address: Address: [address] [place] [id number]
--- OUTSIDE RECORDS SUMMARY | 2023-10-27 09:48 | XMS_ITS | Continuity of Care Document ---
Author Name Unknown Organization [facility] ter Address [address] [place] [id number]- Care Team Providers Care Technical Business Analyst Name Role Phone Not on Staff, PCP Primary Care Physician Unavail able Encounter [facility] Date(s): 05/30/21 - 07/18/[address] [address]- Attending Physician: Scott Gonzalez MD Admitting Physician: Scott Gonzalez MD Referring Physician: Rell GILL, Carlito
--- OUTSIDE RECORDS SUMMARY | 2023-10-27 09:48 | XMS_ITS | Continuity of Care Document ---
Author Name Unknown Organization [facility] ter Address [address] [place] [id number]- Care Team Providers Care Supervisor Rod Placing Name Role Phone Jacobo KIMBROUGH, Joshua Pierce Primary Care Physician Encounter [facility] [place] Date(s): 09/02/22 - 09/02/[address] [address]- Discharge Disposition: A-D/C Home Attending Physician: Scott Gonzalez MD Admitting Physician: Scott Gonzalez MD Referring Physician: Carlito Zacarias MD Allergies, [...] opioid drug. Start Date: 09/02/22 Status: Ordered Vital Signs Most recent to oldest [Reference Range]: 1 2 3 Height 184 cm (09/02/22 6:25 AM) 184 cm (09/02/22 6:25 AM) Weight 92.2 kg (09/02/22:25 AM) 92.2 kg (09/02/22: AM) Oxygen Saturation [94-100 %] 97 % (09/02/22 12:30 PM) 99 % (09/02/22 12:00 PM) 98 % (09/02/22 11:30 AM) Pulse Rate [55-90 bpm] 58 bpm (09/02/22:25 AM) Body Mass Index [18.5-24.99 kg/m2] 27.23 kg/m2 *H* (09/02/22:25 AM) Blood Pressure [90-138/55-84 mm Hg] 115/82mm Hg (09/02/22 12:30 PM) 131/74mm Hg (09/02/22 12:00 PM) 126/75mm Hg (09/02/22 11:30 AM) Respiratory Rate [16-30 br/min] 19 br/min (09/02/22 12:30 PM) 18 br/min (09/02/22 12:00 PM) 23 br/min (09/02/22 11:30 AM) Temperature [96.8-100.4 DegF] 97.4 DegF (09/02/22 6:25 AM) Mode of Delivery (Oxygen) Room air (09/02/22 12:30 PM) Room air (09/02/22 12:00 PM) Room air (09/02/22 11:30 AM) Blood pressure sites Arm, left (09/02/22 12:30 PM) Arm, left (09/02/22 12:00 PM) Arm, left (09/02/22 11:30 AM) Temperature Route Temporal (09/02/22 6:25 AM) Dry Weight 92.2 kg (09/02/22 6:25 AM) 92.2 kg (09/02/22 6:25 AM) Weight Obtained Via Standing scale (09/02/22 6:25 AM) Standing scale (09/02/22 6:25 AM) Dry Weight Obtained Via Standing scale (09/02/22 6:25 AM) Standing scale (09/02/22 6:25 AM) Patient Care team information Personnel Name: Joshua Centeno NP Address: Address: [address] [place] [id number]
--- OUTSIDE RECORDS SUMMARY | 2023-10-27 09:48 | XMS_ITS | Patient Health Record ---
Author Name Unknown Organization [facility] Address [address] [place] [id number] Care Team Providers Care Operations And Maintenance Supervisor Name Role Phone BALJINDER AVALOS Primary Care Provider Hugo Kasper Jr Unavailable ALLERGIES No Known Allergies REASON FOR REFERRAL No Information MEDICATIONS Medication SIG (Take, Route, Frequency, Duration) Notes Start Date End Date Status Simvastatin 20 MG 1 tablet in the even ing Orally Once a day Active Vitamin C Active Zinc Active MiraLax (colon prep) 17 GM/SCOOP mixed with Gatorade or Crystal Light Orally begin at 5:00 p.m. the day before the procedure for 1 day 03/20/2022 Active Fish Oil Active Aspirin 81 Active IMMUNIZATIONS Vaccine Route Administration Date Status Comme nts Influenza Unknown 12/21/2019 Refused SOCIAL HISTORY Sex Assigned At : Social History Observation Description Sex Assigned At Unknown Alcohol Screen Question Answer Notes Did you have a drink contain ing alcohol in the past year? Yes How often did you have a dri nk containing alcohol in the past year? Monthly or less (1 point) How many drinks did you have on a typical day when you were drinking in the past year? 1 or 2 drinks (0 point) How often did you have 6 or more drinks on one occasion in the past year? Never (0 point) Points 1 Interpretation Negative PROBLEMS Problem Type ICD Code Onset Dates Problem Status W/U Status Risk SNOMED Code Notes Problem Colon cancer screening (Z12.11) Active confirmed 071494893 Problem Personal history of colonic polyps (Z86.010) Active confirmed History of polyp of colon (situation) (106910592) Problem Gastroesophageal reflux disease without esophagitis (K21.9) Active confirmed 447230070 Problem Long-term use of aspirin therapy (Z79.82) Active confirmed [id number] Encounters Encounter Location Date Provider Diagnosis [facility] Outpatient [address] [place] [id number] 12/12/2022 Hugo Dee Encounter for screening colonoscopy for [id number]-[id number] patient Z12.11 and Personal history of colonic polyps Z86.010 ASSESSMENTS Encounter Date Diagnosis Assessment Notes Treatment Notes Treatment Clinical Notes 12/12/2022 Personal history of colonic polyps (ICD-10 - Z86.010) 12/12/2022 Encounter for screening colonoscopy for [id number] patient (ICD-10 - Z12.11) PLAN OF TREATMENT Future Test Test Name Order Date UPPER GI ENDOSCOPY 04/19/2014 COLONOSCOPY 04/19/2014 COLONOSCOPY 01/01/2020 COLONOSCOPY 03/20/2022 Insurance Providers Payer Name Payer Address Payer Phone Subscriber Number Group Number Insured Name Patient Relationship to Insured Coverage Start Date Coverage End Date [facility] Medicare Advantage Plan [address] [address] [place] [address] [id number] REHANA GAUTHIER JAZZ Self - patient is the insured MEDICAL (GENERAL) HISTORY Medical History History ICD Code elevated cholesterol Gastroesophageal reflux disease, EGD 06/16 4, no HP or BE. Chest pain, negative cardiac evaluation with EKG, stress test, and echocardiogram 06/05 Colonoscopy 06/29, tubular adenoma, five- year followup due 07/04 Surgical History Surgery Date(Month/Year) double hernia repair 1965 right biceps tendon repair 2004
--- NOTE | 2023-10-27 09:50 | PHA.MEDREC ---
Pharmacy Consult ? Medication Reconciliation Pharmacy has completed the medication reconciliation.
[2023-10-27] MEDS: oxyCODONE HCl ER 10 MG TAB.ER.12H PO ×2 (10:18→19:47)
[2023-10-27] MEDS: Lactated Ringers 1,000 ML 100 ML IVCONT ×2 (10:18→16:31)
[2023-10-27] MEDS: ceFAZolin Sodium/Dextrose,Iso 2 GM/50 ML PIGGYBACK IV (12:42)
[2023-10-27] MEDS: Acetaminophen 1,000 MG/100 ML PIGGYBACK 400 MG IV (13:30)
[2023-10-27] MEDS: HYDROmorphone HCl 0.5 MG/0.5 ML SYRINGE 0.25 MG IVPUSH ×2 (14:51→14:59)
[2023-10-27] MEDS: oxyCODONE HCl Immed Release 5 MG TABLET PO ×2 (14:53→19:49)
--- NOTE | 2023-10-27 15:58 | PM.OP ---
Brief Operative Note Date of Service: 10/27/23 Pre-op diagnosis: Left hip OA Procedure: Left THANH Implants: Vannesa Trident 2 56/ lip liner Vannesa Accolade2 #6 127 deg with +2.5/ 36 ceramic Surgeon: Pasquale Reilly MD Anesthesia: GETA Was an Labor And Delivery Registered Nurse used for this Procedure?: No Labor And Delivery Registered Nurse: Wu Wilkins Estimated blood loss (mL): 200 IV fluids (mL): 1,000 Pathology: other Condition: stable Disposition: PACU
[2023-10-27] MEDS: 0.9 % Sodium Chloride Flush 3 ML SYRINGE IVFLUSH (16:32)
--- NOTE | 2023-10-27 16:43 | PC.NURSE ---
Nurse offered to contact surgery for additinal pain med but patient states no need for now
--- NOTE | 2023-10-27 17:15 | P.CONHOSP_ITS ---
History of Present Illness Data of Consult Service Date: 10/27/23 Primary Care Provider: Joshua Centeno, [facility]- HPI 60-year-old man status post left total hip arthroplasty. Surgery was unremarkable. Patient has been able to eat and drink without any nausea or vomiting. He is hemodynamically stable. Minimal complaints of pain and currently resting in bed with family in the room. Review of Systems 2 Review of Systems: Denies any recent fever chills or decrease in appetite respiratory denies any shortness of breath cardiovascular denies chest pain gastrointestinal denies any dysphagia abdominal pain nausea vomiting or diarrhea genitourinary denies any dysuria frequency or hematuria musculoskeletal hip pain, minimal neuropsych denies any weakness or seizures all other systems reviewed are negative [facility] Medical History Aortic valve calcification CAD (coronary artery disease) Osteoarthritis Ascending aorta enlargement Elevated cholesterol History of coronary angiogram GERD (gastroesophageal reflux disease) Family History Father Prosthetic valve dysfunction Brother Myocardial infarction complications Mother Pacemaker Surgical History History of surgery History of esophagogastroduodenoscopy (EGD) History of mandibular surgery Hx of colonoscopy History of surgery on arm History of bilateral inguinal hernia repair Social History Household Members: Spouse Housing: House Are you a primary patient care director to a significant other at home: No Do you presently have visiting nurse or other home services: No Comment: left hip Patient Tobacco Use Status: Never used Tobacco e-Cigarette/Vaping Use: Never Used Second Hand Smoke Exposure: Yes (pt's smokes ) service: No Current occupational status: employed and retired Current occupation: [employer] Current occupational exposures/hazards: No Cognitive needs: No Hearing needs: No Vision needs: No Meds Allergies Allergy/AdvReac Type Severity Reaction Status Date / Time No Known Allergies Allergy Verified 10/27/23 09:40 Active Medications: Current Medications Acetaminophen (Acetaminophen 325 Mg Tablet) 650 mg PO Q6H PRN PRN Reason: Pain, Mild (Pain Scale 1-3) Aspirin (Aspirin 325 Mg Tablet) 325 mg PO BID JUSTIN Celecoxib (Celecoxib 200 Mg Capsule) 200 mg PO BID [facility] Docusate Sodium (Docusate Sodium 100 Mg Capsule) 100 mg PO BID [facility] Hydromorphone HCl (Hydromorphone Hcl 0.5 Mg/0.5 Ml Syringe) 0.25 mg IVPUSH Q4H PRN; Protocol PRN Reason: Pain, Severe (Pain Scale 7-10) Cefazolin Sodium/Dextrose (Ancef) 2 gm in 50 mls @ 100 mls/hr IV POSTOP ONE Stop: 10/28/23 18:29 Lactated Ringer's (Lr) 1,000 mls @ 100 mls/hr IVCONT .Q10H [facility] Stop: 10/28/23 14:09 Last Admin: 10/27/23 16:31 Dose: 100 mls/hr Ondansetron HCl (Ondansetron Hcl 4 Mg/2 Ml Vial) 4 mg IVPUSH Q8H PRN PRN Reason: Nausea and Vomiting Oxycodone HCl (Oxycodone Hcl Immed Release 5 Mg Tablet) 5 mg PO Q4H PRN PRN Reason: Pain, Moderate(Pain Scale 4-6) Oxycodone HCl (Oxycodone Hcl Er 10 Mg Tab.Er.12h) 10 mg PO BID [facility] Sodium Chloride (0.9 % Sodium Chloride Flush 3 Ml Syringe) 3 ml IVFLUSH QSHIFT [facility] Last Admin: 10/27/23 16:32 Dose: 3 ml Home Medications Medication Instructions Recorded Confirmed Last Taken Type ascorbate calcium (vitamin C) 500 500 mg PO DAILY 05/08/21 10/22/23 Unknown History mg tablet zinc acetate 50 mg (zinc) capsule 50 mg PO DAILY 10/16/23 10/22/23 Unknown History Physical Exam 2 Vital Signs and Narrative: Vital Signs: Last Vital Signs Temp 98.6 F 10/27/23 16:02 Pulse 79 10/27/23 16:02 Resp 18 10/27/23 16:02 BP 134/89 10/27/23 16:02 Pulse Ox 100 10/27/23 16:02 O2 Del Method Room Air 10/27/23 16:02 O2 Flow Rate 2 10/27/23 15:20 BMI result Body Mass Index 27.1 Appearing in no acute distress head is normocephalic atraumatic eyes pupils are PERRLA sclera is anicteric mouth throat mucous membranes are intact and moist neck is supple no lymphadenopathy, no JVD noted lung sounds are clear to auscultation heart regular rate rhythm, clear S1, S2 positive bowel sounds, abdomen is soft, nontender neuro patient is alert x3, no focal deficits Left hip surgical dressing, surgical incision not visualized Results Labs 10/29/23 05:41 10/29/23 05:41 Assessment and Plan (1) Left hip pain: Status: Acute Plan 68 year old status post left total hip arthroplasty Left total hip arthroplasty Management as per surgical team Pain management Hyperlipidemia May continue statin or resume at discharge DVT prophylaxis with full-dose aspirin Full code Medical consultation complete. Will sign off
[2023-10-27] MEDS: Docusate Sodium 100 MG CAPSULE PO (19:46)
[2023-10-27] MEDS: Celecoxib 200 MG CAPSULE PO (19:47)
--- NOTE | 2023-10-27 20:34 | PC.NURSE ---
Patient stood up with walker and 2 assist,unable to urinate,bladder scanned for 543 ml,str cath placed in ,patient tolerated it well
[2023-10-28] VITALS (7 sets, daily range): BP systolic 100–121; BP diastolic 55–71; PULSE 66–82; RESP 16–18; TEMP 36.6–37; O2SAT 95–97
[2023-10-28] MEDS: Lactated Ringers 1,000 ML 100 ML IVCONT ×2 (02:24→10:21)
[2023-10-28] MEDS: Acetaminophen 325 MG TABLET 650 MG PO ×2 (05:43→13:14)
[2023-10-28 06:32] LABS: MANUAL DIFF FLAG NO
--- NOTE | 2023-10-28 06:40 | PC.NURSE ---
voided to urinal 4-5 times between [id number], am bladder scan =219ml, pt denies any bladder pain or pressure. will cont to monitor
[2023-10-28 06:48] LABS: Basophils Percent Auto 0.1 % (0-2); Eosinophils Percent Auto 0.1 % (0-4); Hematocrit 36.8 % (42.0-52.0); Hemoglobin 12.4 g/dl (14.0-18.0); Imm Gran Abs Auto 0.02 X10*3/uL (0.00-0.03); Imm Gran Pct Auto 0.2 % (0.0-0.4); Lymphocytes Absolute Auto 1.5 X10*3/uL (1.2-4.9); Lymphocytes Percent Auto 18.4 % (20-40); Mean Corpuscular HGB Conc 33.7 g/dl (31.0-36.0); Mean Corpuscular Hemoglobin 31.1 pg (27.0-33.0); Mean Corpuscular Volume 92.2 fL (80.0-98.0); Mean Platelet Volume 11.4 fL (9.4-12.4); Monocytes Absolute Auto 0.8 X10*3/uL (0.1-1.2); Monocytes Percent Auto 9.6 % (2-11); Neutrophils Absolute Auto 5.8 x10*3/uL (2.0-8.3); Neutrophils Percent Auto 71.6 % (45-73); Platelet Count 131 X10*3/uL (160-400); Red Blood Count 3.99 X10*6/uL (4.60-5.80); White Blood Count 8.1 X10*3/uL (4.8-10.8)
[2023-10-28 07:05] LABS: Anion Gap 12 (12-20); Blood Urea Nitrogen 18 mg/dL (9-16); Calcium 8.7 mg/dL (8.4-10.2); Carbon Dioxide 27 mmol/L (22-29); Chloride 104 mmol/L (96-108); Creatinine Clr Calc Pharmacy 79.1; Estimated Glomerular Filt Rate > 60; Glucose Fasting 129 mg/dL (60-99); Potassium 3.9 mmol/L (3.3-5.1); Sodium 139 mmol/L (135-145)
--- NOTE | 2023-10-28 08:33 | PM.PNORT ---
Subjective Subjective Date of Service: 10/28/23 Interval history: POD1 s/p LTHA Patient is resting in bed comfortably No overnight events Pain is managed No additional complaints Physical Exam Vital Signs: Vital Signs: Last Vital Signs Temp 98.6 F 10/28/23 07:45 Pulse 66 10/28/23 07:45 Resp 16 10/28/23 07:45 BP 102/55 L 10/28/23 07:45 Pulse Ox 95 10/28/23 07:45 O2 Del Method Room Air 10/28/23 07:45 O2 Flow Rate 2 10/27/23 15:20 BMI result Body Mass Index 27.1 Const: General: cooperative, healthy appearing and no acute distress Resp: Effort & Inspection: normal respiratory effort and able to speak in complete sentences Cardio: Rate: regular rate Peripheral pulses: Peripheral pulses 2+ throughout GI: Palpation (GI): Soft to palpation Skin: Lesions: no lesions Rashes: no rashes Extrem: Other: left hp dressing is c/d/i. Able to dorsi/plantar flex. Calf is supple and nontender. Sensation intact. Pedal pulse intact. Procedures Date of Service Date of Service: 10/28/23 Progress Note: A&P Assessment and plan (1) Status post total replacement of left hip: Status: Acute Plan Continue pain mgmnt Begin ASA for dvt ppx begin PT for LTHA- WBAT Dispo planning-Pending PT stair trial, pain mgmnt, possibility of discharge later today if able to do stairs Time Spent With Patient Time: Total time managing care of this patient today ____ minutes. Quality Stroke Does the patient have a stroke diagnosis?: No VTE Prior VTE?: No VTE Risk Level:: Medical - moderate - high VTE Device Contraindication: N/A - Device Ordered VTE Drug Contraindication: N/A - Med Ordered
[2023-10-28] MEDS: Docusate Sodium 100 MG CAPSULE PO ×2 (08:54→20:02)
[2023-10-28] MEDS: 0.9 % Sodium Chloride Flush 3 ML SYRINGE IVFLUSH ×2 (08:54→20:03)
[2023-10-28] MEDS: Celecoxib 200 MG CAPSULE PO ×2 (08:54→20:03)
--- NOTE | 2023-10-28 09:27 | MHC.CM.PN ---
IMM 10/28/23 Male S/P L THANH Patient lives with his . He is independent with all functional mobility. A HCP was documented and scanned into EMR. A copy was provided to the patient. The patient preference for Home health is, [facility]. A referral has been sent to the agency. DP Home with [facility]. Pts will provide transportation home.
[2023-10-28] MEDS: Aspirin 325 MG TABLET PO ×2 (10:19→20:02)
--- NOTE | 2023-10-28 12:23 | HO.POSTANES ---
Post Anesthesia Evaluation Post Anesthesia Evaluation Date of Service: 10/28/23 Vital Signs: Vital Signs Temp Pulse Resp BP Pulse Ox O2 Del Method 10/28/23 07:45 98.6 F 66 16 102/55 L 95 Room Air 10/28/23 07:33 72 109/71 96 10/28/23 04:00 97.9 F 72 16 109/71 96 Room Air 10/28/23 01:28 98.3 F 75 16 108/66 96 Room Air Anesthesia: General Mental Status: Awake Pain Control: Satisfactory Nausea/Vomiting: None Hydration: Adequate Anesthesia-Related Issues: No Anes. Related Issues
--- NOTE | 2023-10-28 17:19 | PC.NURSE ---
Order for straight cath in the chart, per patient he is able to void without problems. Cath not done
--- NOTE | 2023-10-28 17:22 | PC.NURSE ---
per order NG tube was connected to suction for 1 hr. There was 50ml of dark brown fluid drained. NG tube clamped at 1730 per order for next 4 hrs - will report to the second shift supervisor
[2023-10-28] MEDS: ceFAZolin Sodium/Dextrose,Iso 2 GM/50 ML PIGGYBACK IV (17:39)
[2023-10-28] MEDS: oxyCODONE HCl Immed Release 5 MG TABLET PO (18:50)
[2023-10-28] MEDS: oxyCODONE HCl ER 10 MG TAB.ER.12H PO (21:36)
[2023-10-29 03:44] VITALS: BP 100/61; PULSE 80; RESP 18; TEMP 36.5; O2SAT 97
[2023-10-29 06:20] LABS: Basophils Percent Auto 0.1 % (0-2); Hemoglobin 11.1 g/dl (14.0-18.0); Imm Gran Abs Auto 0.03 X10*3/uL (0.00-0.03); Imm Gran Pct Auto 0.4 % (0.0-0.4); PLT CLUMP 1; Red Cell Distribution Width 12.1 % (11.0-16.0); SCAN SMEAR FLAG 1
[2023-10-29 06:22] LABS: Eosinophils Absolute Auto 0.1 X10*3/uL (0.0-0.4); Eosinophils Percent Auto 1.7 % (0-4); Hematocrit 33.4 % (42.0-52.0); Lymphocytes Absolute Auto 1.4 X10*3/uL (1.2-4.9); Lymphocytes Percent Auto 16.6 % (20-40); Mean Corpuscular HGB Conc 33.2 g/dl (31.0-36.0); Mean Corpuscular Hemoglobin 30.7 pg (27.0-33.0); Mean Corpuscular Volume 92.3 fL (80.0-98.0); Mean Platelet Volume 11.4 fL (9.4-12.4); Monocytes Absolute Auto 0.7 X10*3/uL (0.1-1.2); Monocytes Percent Auto 9.1 % (2-11); Neutrophils Absolute Auto 5.9 x10*3/uL (2.0-8.3); Neutrophils Percent Auto 72.1 % (45-73); Red Blood Count 3.62 X10*6/uL (4.60-5.80)
[2023-10-29 06:26] LABS: MANUAL DIFF FLAG NO; Platelet Count 102 X10*3/uL (160-400); White Blood Count 8.1 X10*3/uL (4.8-10.8)
[2023-10-29 06:35] LABS: Anion Gap 10 (12-20); Blood Urea Nitrogen 21 mg/dL (9-16); Calcium 8.2 mg/dL (8.4-10.2); Carbon Dioxide 27 mmol/L (22-29); Chloride 105 mmol/L (96-108); Creatinine Clr Calc Pharmacy 95.8; Estimated Glomerular Filt Rate > 60; Glucose Fasting 148 mg/dL (60-99); Potassium 3.7 mmol/L (3.3-5.1); Sodium 138 mmol/L (135-145)
[2023-10-29 07:56] VITALS: BP 107/56; PULSE 67; RESP 18; TEMP 37.2; O2SAT 96
[2023-10-29] MEDS: Docusate Sodium 100 MG CAPSULE PO (08:12)
[2023-10-29] MEDS: Celecoxib 200 MG CAPSULE PO (08:12)
[2023-10-29] MEDS: Aspirin 325 MG TABLET PO (08:12)
[2023-10-29] MEDS: Acetaminophen 325 MG TABLET 650 MG PO (08:13)
[2023-10-29] MEDS: 0.9 % Sodium Chloride Flush 3 ML SYRINGE IVFLUSH (08:13)
[2023-10-29] MEDS: oxyCODONE HCl ER 10 MG TAB.ER.12H PO (08:13)
--- NOTE | 2023-10-29 08:24 | P.DS_ITS ---
DS: Providers Provider Date of Service: 10/29/23 Date of admission: 10/27/23 09:45 Primary care physician: CASSIDY Rogers Consults: 10/27/23 16:08 Consult to Hospitalist Routine Comment: Consulting Provider: Hospitalist Reason For Exam: medical management DS: Diagnosis Discharge Diagnosis (1) Status post total replacement of left hip: Status: Acute DS: Summary Hospital Course Hospital Course: The patient underwent a successful left total hip arthroplasty on 10/27/24 , was transferred to PACU and then to the floor to recover. During their stay, their vitals were stable, afebrile at . Labs were unremarkable, H/H 11.1/33.4. POD 1 he was started on ASA 325mg tabs po bid for DVT ppx, they also received Physical Therapy services twice a day. Physical therapy should include gait training, core and lumbar strength, glute strength. Posterior precautions intact. WBAT. Prior to discharge, her dressing was changed, incision clean dry and intact, new Aquacel dressing applied. The Aquacel dressing should remain intact and dry at all times. Any concerns with the dressing, please contact orthopedic office. No showering. The plan is to be discharged home with [facility] services Time Attestation Discharge coordination time: Less than 30 minutes Quality: Safe Use of Opioids Does Pt have an Active Cancer Diagnosis on the Problem List?: No Quality: Stroke Does the patient have a stroke diagnosis?: No Physical Exam Vital Signs: Vital Signs: Last Vital Signs Temp 98.9 F 10/29/23 07:56 Pulse 67 10/29/23 07:56 Resp 18 10/29/23 07:56 BP 107/56 L 10/29/23 07:56 Pulse Ox 96 10/29/23 07:56 O2 Del Method Room Air 10/29/23 07:56 O2 Flow Rate 2 10/27/23 15:20 BMI result Body Mass Index 27.1 Const: General: cooperative, healthy appearing and no acute distress Resp: Effort & Inspection: normal respiratory effort and able to speak in complete sentences Cardio: Rate: regular rate Peripheral pulses: Peripheral pulses 2+ throughout GI: Palpation (GI): Soft to palpation Skin: Lesions: no lesions Rashes: no rashes Extrem: Other: left hp dressing is c/d/i. Able to dorsi/plantar flex. Calf is supple and nontender. Sensation intact. Pedal pulse intact. DS: Data Data Completed and Pending Pending studies at discharge: Pending at discharge 10/27/23 13:37 Surgical [PTH] Routine Labs on day of discharge: Laboratory Results - last 24 hr 10/29/23 05:41 WBC 8.1 RBC 3.62 L Hgb 11.1 L Hct 33.4 L MCV 92.3 MCH 30.7 MCHC 33.2 RDW 12.1 Plt Count 102 L MPV 11.4 Immature Gran % (Auto) 0.4 Neut % (Auto) 72.1 Lymph % (Auto) 16.6 L Colbert % (Auto) 9.1 Eos % (Auto) 1.7 Baso % (Auto) 0.1 Lymph # (Auto) 1.4 Colbert # (Auto) 0.7 Eos # (Auto) 0.1 Baso # (Auto) 0.0 Abs Immat Gran (auto) 0.03 Absolute Neuts (auto) 5.9 Absolute Nucleated RBC 0.000 Nucleated RBC % (auto) 0.0 Sodium 138 Potassium 3.7 Chloride 105 Carbon Dioxide 27 Anion Gap 10 L BUN 21 H Creatinine 0.81 Estim Creat Clear Calc 95.8 Estimated GFR > 60 Fasting Glucose 148 H Calcium 8.2 L Discharge Plan Discharge Anticipated Discharge Date/Time: 10/29/23 10:11 Patient Disposition: Home Health Service Discharge Diagnosis: s/p lt jos Referrals: Wu Wilkins PA-C [Physician Edge Setter] - 2 Weeks (11/12/23 1:30 [facility] Orthopedic Surgeons Wu Wilkins PA-C) Discharge Medications: New docusate sodium 100 mg Capsule 100 mg PO BID 14 Days Qty: 28 0RF celecoxib 200 mg Capsule 200 mg PO BID 30 Days Qty: 60 0RF aspirin 325 mg Tablet 325 mg PO BID 42 Days Qty: 84 0RF oxycodone 5 mg Tablet 5 mg PO Q4H PRN (Reason: Pain, Moderate(Pain Scale 4-6)) 7 Days Qty: 42 0RF Rx Instructions: Partial Fill upon patient request. acetaminophen 325 mg Tablet 650 mg PO Q6H PRN (Reason: Pain, Mild (Pain Scale 1-3)) 30 Days Qty: 240 0RF Continued (HALLE) shayy Conley See Rx Instructions .MEDSUPPLY Qty: 1 0RF Rx Instructions: Folding Front wheeled walker loperamide [Imodium A-D] 2 mg capsule 2 mg PO Q4H PRN (Reason: loose stool) Qty: 12 0RF Rx Instructions: administer after each loose stool until symptoms controlled; do not exceed 8 mg per 24 hrs zinc acetate 50 mg (zinc) Capsule 50 mg PO DAILY ascorbate calcium (vitamin C) 500 mg tablet 500 mg PO DAILY atorvastatin 80 mg tablet 80 mg PO QPM Qty: 90 3RF Discontinued aspirin [Adult Low Dose Aspirin] 81 mg tablet,delayed release (DR/EC) 81 mg PO DAILY Discharge Orders: Discharge Order (Routine); Ordered 10/29/23 Ordered By: Wu Wilkins Diet: Regular diet Activity on Discharge: Use cane or walker Stand Alone Forms: Patient Portal Discharge page Care Plan Goals: Restore function of joint Health Concerns: none Plan of Treatment: Physical Therapy Pain management DVT prophylaxis Assessment: * Physical Therapy for Total hip arthroplasty: wbat, posterior precautions, gait training, ROM, strength * Limit stair climbing * No showering, no tub bath-keep dressing clean, dry and intact * No driving x6 weeks * Continue Aspirin twice a day x 6 weeks * Follow up with [facility] Orthopedics in 2 weeks:
--- NOTE | 2023-10-29 08:48 | MHC.CM.PN ---
Addendum entered by Emily Jara 10/29/23 11:04: DCS, FACE TO FACE, AND NOTICE OF DC SENT TO [facility] VIA [employer] Original Note: PT TO DC HOME TODAY WITH [facility]
[2023-10-29 09:00] VITALS: BP 107/56; PULSE 67; O2SAT 96
--- NOTE | 2023-10-29 10:43 | W.MHC.F2F ---
Service Date Service Date: 10/29/23 Encounter Date of encounter: 10/29/23 Reasons for Services Signs and symptoms assessed: Weakness, poor balance, poor gait mechanics Reason for physical therapy: home safety and mobility, therapeutic exercises, restore joint function, gait/transfer training, ADL training and energy conservation Reason for occupational therapy: home safety and mobility, therapeutic exercises, restore joint function, gait/transfer training, ADL training and energy conservation Homebound: Leaving the home is medically contraindicated at this time without the asist of a device and/or another person due th the listed conditions above and below. Reason homebound: unsteady gait / fall risk, pain with ambulation, poor balance / fall risk and unable to drive Homebound supporting statement: Pt. is considered home bound due to recent surgery. Unable to drive, poor balance, poor gait mechanics. Certification: Based on the above findings, I certify that this patient is confined to the home and needs intermittent long term care, physical therapy and/or speech therapy, or continues to need occupational therapy. The patient is under my care, and I have initiated the establishment of the plan of care. The patient will be followed by a physician who will periodically review the plan of care. Time Spent With Patient Time: Total time managing care of this patient today ____ minutes.
--- NOTE | 2023-10-30 12:39 | P.OP_ITS ---
Operative Note Operative Note Date of Service: 10/30/23 Narrative: Date of Service: 10/27/23 Pre-op diagnosis: Left hip OA Procedure: Left THANH Implants: Vannesa Trident 2 56/ lip liner Vannesa Accolade2 #6 127 deg with +2.5/ 36 ceramic Surgeon: Pasquale Reilly MD Anesthesia: GETA Was an Industrial Illuminating Engineer used for this Procedure?: No Industrial Illuminating Engineer: Wu Wilkins Estimated blood loss (mL): 200 IV fluids (mL): 1,000 Pathology: other Condition: stable Disposition: PACU Procedure in detail: Patient was brought into the operating room and placed in the right lateral decubitus position. All bony prominences were well padded and the limb was prepped and draped in standard sterile fashion. A time-out was called to identify proper site procedure proper surgeon IV antibiotics and 1 g of transaxemic acid were administered. I began by making a curvilinear incision over the posterolateral aspect of the greater trochanter. Dissection was taken down to the tensor fascia which was incised in line with the incision and a Charnley retractor was placed. Cautery was used to maintain hemostasis. The hip was internally rotated and the external rotators were identified. The vessels were cauterized and a full-thickness capsular/external rotator layer was developed starting just proximal to the piriformis. This layer was tagged and a dull Hohmann retractor was placed underneath the neck in the hip was dislocated. A neck cut was made 1 cm proximal to the lesser trochanter and the head and neck were removed and measured 50mm on the back table. I then removed the labrum and cauterized the fovea. I started with a 48reamer and medialized to the inner table. I sequentially reamed up to a size 56 and impacted a 56mm cup at 45 degrees of inclination and 25 degrees of version. I then placed a 20 deg posterior lipped liner and turned my attention to the femur. I identified the piriformis insertion and used this as a starting point for my ernie cutter. The medius tendon was protected with a Hibs retractor. A Charnley awl was inserted in the canal and a curved curette used to remove the lateral bone. I irrigated copiously. I then sequentially broached in the patient's natural version to a size 5 and placed my trial implants. I used a #6/127/+0 and a +2.5 based on my pre-operative template. Using a trail head I took the hip through range of motion. I was satisfied with the stability. I removed all instrumentation and copiously irrigated. I placed my final femoral implant and again took the hip through range of motion and was satisfied with the stability and length. The final 2.5 implant was impacted in place and the hip reduced. I then placed 1 g of local transaxemic acid. I performed a capsular closure with 2.0 fiberwire, Vincent's fascia with 0 Vicryl, subcuticular with 2-0 Vicryl and the skin with stanislav. Patient was placed into a sterile dressing. Patient was extubated brought to the recovery room in stable condition. There were no known complications.
== END 2023-10-29 12:42 | disposition home health service (06) | DRG 470 ==
LOC: HO.SSSA 09:46 → HO.S3 14:49
PROVIDERS: Physician Assistant; Admitting Provider Orthopaedic Surgery; PCP Nurse Practitioner Family; Visit Provider Orthopaedic Surgery
PROC: 0SRB03A Replacement of Left Hip Joint with Ceramic Synthetic Substitute, Uncemented, Open Approach (ICD-10-PCS; CPT 27130; principal; 2023-10-27 12:10)
DX: M16.12 Unilateral primary osteoarthritis, left hip (principal); E78.5 Hyperlipidemia, unspecified; I25.10 Atherosclerotic heart disease of native coronary artery without angina pectoris; K21.9 Gastro-esophageal reflux disease without esophagitis; Z79.899 Other long term (current) drug therapy
CPT/HCPCS: 36415; 72170; 80048; 85025; 86850; 86900; 86901; 87640; 87641; 88304; 88311; 97110; 97116; 97162; 97166; 97535; 99024; C1776; J0131; J0171; J0461; J0690; J1170; J2250; J2371; J2405; J2704; J2795; J3010; J7120

== ENCOUNTER → 2023-10-27 09:45 | Outpatient (BNV) | payer MEDICARE, SELFPAY | PROVIDERS: Admitting Provider Orthopaedic Surgery; PCP Nurse Practitioner Family; Visit Provider Nurse Practitioner Acute Care | DX: M25.552 Pain in left hip (principal) | CPT/HCPCS: 99221 ==

== ENCOUNTER → 2023-10-27 09:45 | Outpatient (BNV) | payer MEDICARE, SELFPAY | PROVIDERS: Admitting Provider Orthopaedic Surgery; PCP Nurse Practitioner Family; Visit Provider Orthopaedic Surgery | DX: Z96.642 Presence of left artificial hip joint (principal) | CPT/HCPCS: 27130; 99024 ==

== ENCOUNTER 2023-11-12 13:14 | Outpatient (AMB) | payer MEDICARE, SELFPAY ==
--- NOTE | 2023-11-12 13:17 | A.OFFVIS_ITS ---
Intake Intake Visit Reasons: PO- LT THANH 10/27/23 NE Intake Note: Angel 68 yr old male presents today for his P/O visit for his left THANH from [facility] 10/27/[facility]. Patient states he is doing well. He has completed P.T at home and is looking forward to starting out patient therapy. States he has enough pain medication at home. Allergies No Known Allergies Allergy (Verified 11/12/23 13:21) HPI PO- LT THANH 10/27/23 NE HPI Details 68-year-old male who returns to the [facility] today for post-op left THANH, 10/27/[address] Reilly. He states he has no pain and is doing well overall. He has completed physical therapy at home and is looking forward to starting outpatient therapy. He takes oxycodone at night with benefits. He has no other concern today. [facility] Medical History Aortic valve calcification CAD (coronary artery disease) Osteoarthritis Ascending aorta enlargement Elevated cholesterol History of coronary angiogram GERD (gastroesophageal reflux disease) Surgical History History of surgery History of esophagogastroduodenoscopy (EGD) History of mandibular surgery Hx of colonoscopy History of surgery on arm History of bilateral inguinal hernia repair Family History Father Prosthetic valve dysfunction Brother Myocardial infarction complications Mother Pacemaker Social History (Reviewed 11/12/23 @ 13:22 by Whitney Hines [facility]) Household Members: Spouse Housing: House Are you a primary career orientation teacher to a significant other at home: No Do you presently have visiting nurse or other home services: No Comment: left hip Patient Tobacco Use Status: Never used Tobacco e-Cigarette/Vaping Use: Never Used Second Hand Smoke Exposure: Yes (pt's smokes ) service: No Current occupational status: employed and retired Current occupation: [employer] Current occupational exposures/hazards: No Cognitive needs: No Hearing needs: No Vision needs: No Review of Systems Const All systems reviewed & are unremarkable except as noted in HPI and below Physical Exam Extrem Other: Left hip: Incision clean, dry and intact. No erythema or drainage. Calf supple, nontender. NVI. Assessment & Plan Assessment & Plan (1) Status post total replacement of left hip: Code(s): Z96.642 - Presence of left artificial hip joint Plan [place] removed, steri strips applied. He will begin to transition to Outpatient PT to continue working on Gait training, ROM and quad strength. No driving for another 4 weeks. He will require ppx abx for dental procedures. He will f/u in 4 weeks, sooner if needed. Orders: Orders PT Evaluation and Treatment Today Z96.642 - Presence of left artificial hip joint Medications: Refilled celecoxib 200 mg PO BID 60 caps 0RF 30 days Patient Instructions: Scribed for Wu Wilkins PA-C, by Brant Sahu medical field representative, on 11/12/2023 at 1:30 PM EST. IWu PA-C, have personally reviewed and agree with the information entered by the scribe. Coding Level of Care Code Global (60348) Diagnoses Status post total replacement of left hip Z96.642
== END 2023-11-12 13:48 | disposition home or self-care (01) ==
PROVIDERS: PCP Nurse Practitioner Family; Visit Provider Physician Assistant
DX: Z96.642 Presence of left artificial hip joint (principal)
CPT/HCPCS: 99024

== ENCOUNTER → 2023-11-12 13:14 | Outpatient (BNVA) | payer MEDICARE, SELFPAY | PROVIDERS: PCP Nurse Practitioner Family; Visit Provider Physician Assistant | DX: Z47.1 Aftercare following joint replacement surgery (principal); Z96.642 Presence of left artificial hip joint | CPT/HCPCS: 99212 ==

== ENCOUNTER 2023-12-10 08:06 | Outpatient (AMB) | payer MEDICARE, SELFPAY ==
--- NOTE | 2023-12-10 08:10 | MHC.OFFVIS ---
Intake Intake Visit Reasons: PO- LT THANH 10/27/23 NE Intake Note: Angel is a 68 year old male who presents today for a post operative appointment s/p left THANH from [facility] 10/27/23. Patient reports that he is doing well with no concerns. He will have dental appointment coming up in january and will need Abx. He would like to get back to work. Allergies No Known Allergies Allergy (Verified 11/12/23 13:21) HPI PO- LT THANH 10/27/23 NE HPI Details Angel is a 68 year old man ~6 weeks S/P left THANH. He says he is doing well, with no complaints and no pain. He would like to discuss RTW status. He says he has a dentist appointment this January and would need an Abx prescription. [facility] Medical History Aortic valve calcification CAD (coronary artery disease) Osteoarthritis Ascending aorta enlargement Elevated cholesterol History of coronary angiogram GERD (gastroesophageal reflux disease) Surgical History History of surgery History of esophagogastroduodenoscopy (EGD) History of mandibular surgery Hx of colonoscopy History of surgery on arm History of bilateral inguinal hernia repair Family History Father Prosthetic valve dysfunction Brother Myocardial infarction complications Mother Pacemaker Social History Household Members: Spouse Housing: House Are you a primary child care development specialist to a significant other at home: No Do you presently have visiting nurse or other home services: No Comment: left hip Patient Tobacco Use Status: Never used Tobacco e-Cigarette/Vaping Use: Never Used Second Hand Smoke Exposure: Yes (pt's smokes ) service: No Current occupational status: employed and retired Current occupation: [employer] Current occupational exposures/hazards: No Cognitive needs: No Hearing needs: No Vision needs: No Review of Systems Const All systems reviewed & are unremarkable except as noted in HPI and below Physical Exam Const General: no acute distress, alert and awake Orientation/consciousness: patient oriented x3 HEENT Head: Yes normocephalic and Yes atraumatic Eyes EOM: EOMs intact bilaterally Resp Effort & Inspection: normal respiratory effort and able to speak in complete sentences Cardio Jugular venous distension: no JVD Skin General skin exam: turgor normal Rashes: no rashes Neuro General: patient oriented x3 Extrem Other: nl gait no hip pain with hip ROM Psych Appearance: grossly normal Affect: normal affect Attitude: cooperative Results Reviewed Results Reviewed: I personally reviewed relevant radiographs. Left THANH in expected post operative position with no hardware complications or evidence of loosening Assessment & Plan Assessment & Plan (1) Status post total replacement of left hip: Code(s): Z96.642 - Presence of left artificial hip joint Plan: No pain Doign well May rtw sans restrictions Plan Prepared for Pasquale Reilly MD by Murphy Delgadillo, medical science liaison, on 12/10/23 at 8:38 AM, EST. Orders: Orders XR pelvis 1-2V Today M25.559 - Pain in unspecified hip Coding Level of Care Code Global (56606) Diagnoses Status post total replacement of left hip Z96.642
== END 2023-12-10 08:48 | disposition home or self-care (01) ==
PROVIDERS: PCP Nurse Practitioner Family; Visit Provider Orthopaedic Surgery
DX: Z96.642 Presence of left artificial hip joint (principal)
CPT/HCPCS: 99024

== ENCOUNTER 2023-12-10 14:47 | Outpatient (REF) | payer MEDICARE, SELFPAY ==
--- NOTE | ~2023-12-10 | XR_ITS ---
EXAMINATION: XR PELVIS CLINICAL INFORMATION: Hip pain COMPARISON: Pelvis x-ray on 10/27/2023 TECHNIQUE: AP view of the pelvis. FINDINGS: BONES: Bony structures are intact. There is no focal bone destruction or periosteal reaction seen. JOINTS: There is normal alignment of left total hip arthroplasty prostheses. SOFT TISSUE: Soft tissue is normal. No abnormal air collection is seen. XR/XR pelvis 1-2V IMPRESSION: Unchanged Normal alignment of left total hip arthroplasty prostheses.
== END 2023-12-10 14:48 | disposition home or self-care (01) ==
LOC: HO.HOSX 14:47
PROVIDERS: Visit Provider Orthopaedic Surgery
DX: M25.552 Pain in left hip (principal); Z96.642 Presence of left artificial hip joint
CPT/HCPCS: 72170; 99212

== ENCOUNTER 2023-12-23 07:00 | Outpatient (RCR) | payer OTHER, MEDICARE, SELFPAY ==
--- NOTE | 2023-11-17 09:50 | MHC.PT.EP ---
[facility] [place] Office [place] Office [place] Office [address] Paresh Lima [address] [phone] F: [phone] F: [phone] F: [phone] F: [phone] Physical Therapy Plan of Care Date of Evaluation: 11/17/23 Date of Surgery: 10/27/23 Diagnosis: L THANH Assessment: Patient is a 68 year old R handed male who presents with s/s consistent with L THANH, hip pain. 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 Patient past medical history includes CAD, GERD and b/l inguinal hernia repair. Current impairments include pain, posture, ROM, strength, activity tolerance, gait mechanics, and functional mobility. Functional limitations include decreased ability to perform bed mobility, transfers, stair negotiate, weight bearing activities as well as walking. Patient is motivated with good rehab potential. Skilled PT will address impairments and functional limitations in order to achieve goals. Frequency and Duration: The patient will be seen 2x/week for 5 weeks Short Term Goals: I with HEP - 2 weeks Amb 5 min, no AD, symmetrical gait - 3 weeks Negotiate 1 flight of stairs, no AD, symmetrical mechanics - 3 weeks [employer] Goals: Sleep pain free - 5 weeks LEFS 50/80 - 5 weeks Strength 4/5 grossly - 5 weeks Treatment Plan: Modalities to reduce pain, spasms and effusion. Manual therapy to restore motion and function. Therapeutic exercise to improve strength and flexibility. Neuromuscular re-education for posture and balance. Therapeutic activities to return to functional activities of daily living. Electronically signed by: Ranjan Encarnacion, PT Please sign and return to therapist. Thank you for your referral.
--- NOTE | 2024-07-27 11:46 | MHC.PT.DC ---
[facility] [place] [facility] [place] [facility] [place] [facility] [address] Paresh Lima [address] [phone] F: [phone] F: [phone] F: [phone] F: [phone] Physical Therapy Discharge Report Diagnosis: L THANH Date of Surgery: 10/27/23 Date of Evaluation: 11/17/23 Date of Discharge: 12/30/23 Treatments to Date: 11 Cancellations to Date: No Shows to Date: Discharge Status: Independent with HEP Discharge Summary: 12/23/23: I with HEP. Amb 20 minutes without increased pain. Symmetrical gait. Stairs reciprocal and pain free. LEFS 77/80, strength 4/5 grossly. Motivated throughout with good compliance. d/c to HEP at this time. 12/21/23: pt has been progressing well with skilled PT and tolerated RTW well last week. we will plan to d/c to updated HEP NV. 12/17/23: pt with good response to work still. progressing strength. improved gait and sit <> stand mechanics. 12/14/23: pt progressed with skilled PT. rtw with no adverse reactions. continuing to progress with skilled PT. 12/10/23: RTW tomorrow. 2 more weeks then likely d/c to HEP. assess response to RTW NV. 12/08/23: pt progressing well with skilled PT. no AD today. improved gait mechanics. hip strength improving. compliant with HEP. 12/03/23: pt progressing well with skilled PT. still hesitant with swing phase without cane. strength is improving and we will fine tune gait mechanics moving foward. 11/26/23: pt with no new s/s. responding well to current program. we updated HEP. 11/24/23: pt progressed with stairs, functional activities and balance. no adverse reactions. he does possess asymmetries with gait related to hip strength that we will continue to address 11/19/2023: We progressed hip/LE strengthening today. Fatigue notable but within a reasonable amount. Minimal cues required for form throughout. Updated HEP and printout provided. Patient is a 68 year old R handed male who presents with s/s consistent with L THANH, hip pain. 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 Patient past medical history includes CAD, GERD and b/l inguinal hernia repair. Current impairments include pain, posture, ROM, strength, activity tolerance, gait mechanics, and functional mobility. Functional limitations include decreased ability to perform bed mobility, transfers, stair negotiate, weight bearing activities as well as walking. Patient is motivated with good rehab potential. Skilled PT will address impairments and functional limitations in order to achieve goals. Electronically signed by: Ranjan Encarnacion, PT Please sign and return to therapist. Thank you for your referral.
== END 2024-07-27 11:46 | disposition home or self-care (01) ==
LOC: HO.PTCHIC 07:00
PROVIDERS: PCP Nurse Practitioner Family; Visit Provider Physician Assistant
DX: Z96.642 Presence of left artificial hip joint (principal)
CPT/HCPCS: 97110; 97112; 97162

== ENCOUNTER 2024-01-21 09:25 | Outpatient (AMB) | payer OTHER, SELFPAY ==
--- NOTE | 2024-01-21 09:27 | MHC.OFFVIS ---
Intake Intake Visit Reasons: OV-LT THANH 10/27/23 NE-follow up Intake Note: Angel is a 68 year old male who presents today for a post operative appointment s/p left THANH from [facility] 10/27/23. He has returned to work with no restrictions. Allergies No Known Allergies Allergy (Verified 11/12/23 13:21) HPI OV-LT THANH 10/27/23 NE-follow up HPI Details Linus is doing well proximally 3 months status post left hip replacement. He has no complaints. PFSH Medical History Aortic valve calcification CAD (coronary artery disease) Osteoarthritis Ascending aorta enlargement Elevated cholesterol History of coronary angiogram GERD (gastroesophageal reflux disease) Surgical History History of surgery History of esophagogastroduodenoscopy (EGD) History of mandibular surgery Hx of colonoscopy History of surgery on arm History of bilateral inguinal hernia repair Family History Father Prosthetic valve dysfunction Brother Myocardial infarction complications Mother Pacemaker Social History Household Members: Spouse Housing: House Are you a primary home care administrator to a significant other at home: No Do you presently have visiting nurse or other home services: No Comment: left hip Patient Tobacco Use Status: Never used Tobacco e-Cigarette/Vaping Use: Never Used Second Hand Smoke Exposure: Yes (pt's smokes ) service: No Current occupational status: employed and retired Current occupation: [employer] Current occupational exposures/hazards: No Cognitive needs: No Hearing needs: No Vision needs: No Physical Exam Extrem Other: nl gait. no hip pain with ROM inc c/d/i Results Reviewed Results Reviewed: I personally reviewed relevant radiographs. Left THANH in expected post operative position with no hardware complications or evidence of loosening Assessment & Plan Assessment & Plan (1) Status post total replacement of left hip: Code(s): Z96.642 - Presence of left artificial hip joint Plan: Doing well status post left hip replacement. Continue strengthening exercises. Follow-up 9 months Dental prophylaxis discussed Orders: Orders XR pelvis 1-2V Today M25.559 - Pain in unspecified hip Coding Level of Care Code Global (82425) Diagnoses Status post total replacement of left hip Z96.642
== END 2024-01-21 09:57 | disposition home or self-care (01) ==
PROVIDERS: PCP Nurse Practitioner Family; Visit Provider Orthopaedic Surgery
DX: Z96.642 Presence of left artificial hip joint (principal)
CPT/HCPCS: 99024

== ENCOUNTER 2024-01-21 14:51 | Outpatient (REF) | payer OTHER, SELFPAY ==
--- NOTE | ~2024-01-21 | XR_ITS ---
EXAMINATION: XR PELVIS CLINICAL INFORMATION: Hip pain. COMPARISON: 2023. TECHNIQUE: AP view of the pelvis. FINDINGS: No significant radiographic change compared with 11/20/2023. The patient is status post left hip arthroplasty. No evidence of hardware fracture or loosening. Moderate osteoarthritis of the right hip, with joint space narrowing and sclerosis. No bony fracture or dislocation identified. No lytic or sclerotic bony lesion appreciated. Degenerative changes of the incidentally visualized portion of the lower lumbar spine. Monckeberg type medial calcific sclerosis of the visualized femoral arteries. XR/XR pelvis 1-2V IMPRESSION: No significant radiographic change compared with 12/10/2023.
== END 2024-01-21 14:52 | disposition home or self-care (01) ==
LOC: HO.HOSX 14:51
PROVIDERS: Visit Provider Orthopaedic Surgery
DX: Z47.1 Aftercare following joint replacement surgery (principal); Z96.642 Presence of left artificial hip joint
CPT/HCPCS: 72170

== ENCOUNTER → 2024-04-06 07:49 | Outpatient (REF) | payer OTHER, SELFPAY ==
--- NOTE | 2024-04-06 07:51 | CA_ITS ---
Transthoracic Echocardiogram Patient (Last, First, Middle): Angel Vogel E Gender: Male Date of : 1955 Age: 69 Procedure Date: 04/06/2024 Procedure Type: Transthoracic Echocardiogram Location: OP Height: 182.88 cm Weight: 92.99 kg BSA: 2.15 m2 Heart Rate: 56 bpm BP: 112 / 62 mmHg Monorail Operator: SB Referring MD: Carlito Zacarias MD Spike Machine Operator: Preston Kolb MD Symptoms: I77.89 - Other specified disorders of arteries and arterioles Study Quality: Adequate w contrast ECG Rhythm: Bradycardia Conclusions: - 1. Normal LV ejection fraction of 60 65% 2. Calcific aortic valve changes noted with overall normal cardiac valvular Dopplers 3. Mildly dilated ascending aorta at 3.9 cm 4. No gross pericardial effusion Findings Procedure Information Contrast agent, definity, is being given per protocol without apparent complications. Left Ventricle Normal left ventricular size, thickness, and systolic function. The visually estimated ejection fraction is between 60-65%. There is no evidence of regional wall motion abnormalities. Spectral Doppler is indicative of a normal filling pattern. Right Ventricle Normal right ventricular cavity size and systolic function. Atria The left atrium is likely dilated. Interatrial shunt cannot be excluded. The right atrium is normal in size. Aortic Valve There is mild calcification of the aortic valve. There is mild thickening of the aortic valve. There is no aortic valve stenosis. There is no aortic valve regurgitation. Mitral Valve There is mild anterior and posterior mitral leaflet thickening. There is mild mitral annular calcification. There is trace mitral valve regurgitation. There is no mitral valve stenosis. Pulmonic Valve The pulmonic valve is likely normal. Tricuspid Valve Normal tricuspid valve structure. Tricuspid regurgitation envelope is inadequate for calculation of right ventricular systolic pressure. Great Vessels The pulmonary artery was not well visualized. There is mild dilatation of the ascending aorta measuring 3.90 cm. Small plaque is seen in the sino tubular ridge. Venous The inferior vena cava is normal in size and collapses greater than 50% with inspiration. Pericardium/Pleural There is no evidence of pericardial effusion. Measurements 2D Linear Measurements IVSd: 1.19 0.6-0.9/0.6-1.0 cm LVIDd: 5.08 3.9-5.3/4.2-5.9 cm LVIDd Index: 2.36 2.4-3.2/2.2-3.1 cm/m2 LVIDs: 3.27 2.0-3.6 cm LVPWd: 0.90 0.7-1.1 cm LA Diam: 4.10 2.7-3.8/3.0-4.0 cm LAIDs Index: 1.91 1.5-2.3 cm/m2 LV Mass: 247.65 67-162/88-224 g LV Mass Index: 115.18 43-95/49-115 g/m2 LVOT Diam: 2.30 3.0+(-)1.3 cm 2D Systolic Function EF 4C: 62.50 >55% EF 2C: 59.00 >55% EF BiP: 60.70 >55% Mitral Valve MV Pk E: 0.64 MV PK A: 0.59 MV Decel Time: 262.00 E/A: 1.10 E'Lateral: 9.57 E'Medial: 6.64 E/E' Med: 9.70 E/E' Lat: 6.70 PHT: 77.00 MVA PHT: 2.86 Decel Vernon: 2.45 Aortic Valve AoV Pk Ezequiel: 1.71 AoV Pk Grad: 12.00 GERMÁN: 2.91 LVOT LVOT Pk Ezequiel: 1.20 LVOT Mn Ezequiel: 0.86 LVOT VTI: 0.26 LVOT Pk Grad: 6.00 LVOT Mn Grad: 4.00 LVOT Diam: 2.30 LVOT Area: 4.15 Diastolic Function MV Pk E: 0.64 MV Pk A: 0.59 E/A: 1.10 E'Medial: 6.64 E/E' Med: 9.70 E' Laterial: 9.57 E/E' Lat: 6.70 Right Ventricle TAPSE (mm): 28.00 TVS' Ezequiel: 13.50 Tricuspid Valve RA Press: 3.00 Great Vessels Aorta Sinus of Valsalva: 3.40 2.0-3.5 cm Ao Asc: 3.90 2.1-3.4 cm Pulmonary Veins Pulm Vein S/D 1.30 Updated in Other Vendor System with Status of Final Preston Kolb MD electronically signed on 04/06/2024 2:18:27 PM with status of Final
== END ==
LOC: HO.CARD 07:49
PROVIDERS: PCP Nurse Practitioner Family; Visit Provider Internal Medicine
DX: I77.89 Other specified disorders of arteries and arterioles (principal)
CPT/HCPCS: 93306; Q9957

== ENCOUNTER → 2024-04-06 07:51 | Outpatient (BNV) | payer OTHER, SELFPAY | PROVIDERS: PCP Nurse Practitioner Family; Visit Provider Internal Medicine Cardiovascular Disease | DX: I34.81 Nonrheumatic mitral (valve) annulus calcification (principal); I77.810 Thoracic aortic ectasia | CPT/HCPCS: 93306 ==

== ENCOUNTER 2024-04-27 14:36 | Outpatient (AMB) | payer OTHER, SELFPAY ==
[2024-04-27 15:06] VITALS: BP 120/74; PULSE 58; BMI 27.8
--- NOTE | 2024-04-27 15:06 | A.OFFVIS_ITS ---
Vital Signs 04/27/24 15:06 Height 6 ft Weight 205 lb 0.478 oz BMI 27.8 BP 120/74 Blood Pressure Location Lt brachial Position Sitting Pulse 58 Intake Visit Reasons: 1 yr after echo Intake Note: 1 year follow-up after echo with ekg feeling good Baggage Porter Head Required: No Allergies No Known Allergies Allergy (Verified 11/12/23 13:21) Medication List - Last Reconciled 04/27/24 by Carlito Zacarias MD acetaminophen 650 mg (2 x 325 mg) PO Q6H PRN 30 days amoxicillin 2,000 mg (4 x 500 mg) PO ONCE 1 day ascorbate calcium (vitamin C) 500 mg PO DAILY aspirin 81 mg PO DAILY atorvastatin 80 mg PO QPM docusate sodium 100 mg PO BID 14 days loperamide (Imodium A-D) 2 mg PO Q4H PRN walker Folding Front wheeled walker zinc acetate 50 mg PO DAILY HPI Comments Details: Angel returns for follow-up regarding coronary disease. In the past, he was getting chest pains and arm pains. Subsequently, he underwent a complete workup including cardiac catheterization. He does have nonobstructive CAD but nothing hemodynamically significant. Overall, he states he feels good. No complaints like angina or shortness of breath or in fact anything cardiac sounding. He works full-time with no limitations. [facility] Medical History Left hip pain Aortic valve calcification CAD (coronary artery disease) Osteoarthritis Ascending aorta enlargement Elevated cholesterol History of coronary angiogram GERD (gastroesophageal reflux disease) Surgical History History of surgery History of esophagogastroduodenoscopy (EGD) History of mandibular surgery Hx of colonoscopy History of surgery on arm History of bilateral inguinal hernia repair Family History Father Prosthetic valve dysfunction Brother Myocardial infarction complications Mother Pacemaker Social History Household Members: Spouse Housing: House Are you a primary child care attendant school to a significant other at home: No Do you presently have visiting nurse or other home services: No Comment: left hip Patient Tobacco Use Status: Never used Tobacco e-Cigarette/Vaping Use: Never Used Second Hand Smoke Exposure: Yes (pt's smokes ) service: No Current occupational status: employed and retired Current occupation: [employer] Current occupational exposures/hazards: No Cognitive needs: No Hearing needs: No Vision needs: No Review of Systems Const All systems reviewed & are unremarkable except as noted in HPI and below Reports as per HPI and Reports no additional complaints Eyes Reports as per HPI and Denies no additional complaints ENT Denies no additional complaints and Reports as per HPI Card Reports as per HPI, Reports no additional complaints, Denies acrocyanosis, Denies chest pain, Denies leg edema, Denies lightheadedness, Denies palpitations and Denies dyspnea Resp Reports as per HPI, Denies no additional complaints and Denies dyspnea GI Reports as per HPI and Denies no additional complaints Reports no additional complaints and Reports as per HPI Musc Reports no additional complaints and Reports as per HPI Skin/Breast Reports system reviewed and no additional complaints, except as documented Neuro Reports no additional complaints and Reports as per HPI Psych Reports no additional complaints and Reports as per HPI Endo Reports no additional complaints, Reports as per HPI and Denies palpitations Dave/Lymph Reports no additional complaints and Reports as per HPI Aller/Immun Reports no additional complaints and Reports as per HPI Physical Exam Vital Signs: Last Vital Signs Pulse 58 04/27/24 15:06 BP 120/74 04/27/24 15:06 BMI result Body Mass Index 27.8 Const General: comfortable and no acute distress Orientation/consciousness: patient oriented x3 HEENT Other: Unremarkable Head: Yes normal to inspection Neck Neck: Yes normal visual inspection Chest Chest palpation & inspection: normal inspection of the chest Resp Auscultation: clear to auscultation bilaterally Cardio Palpation: normal PMI Heart sounds: S1 normal heart sound present, S2 normal heart sound present, no gallops, Murmur heart sound present systolic I/ and at the right sternal border and no rubs GI Palpation (GI): Soft to palpation Back/Spine/Pelvis Other: unremarkable Skin General skin exam: no rashes or lesions noted Neuro General: patient oriented x3 Extrem General: Yes normal to inspection Psych Mental Status: mental status grossly normal Office Procedures EKG Details: EKG with sinus bradycardia at 58/Min; no significant ST-T changes and otherwise unremarkable[place] [id number], Complete Assessment & Plan Assessment & Plan (1) Coronary artery disease: Code(s): I25.10 - Atherosclerotic heart disease of [place] coronary artery without angina pectoris Category: Medical Qualifiers: Coronary Disease-Associated Artery/Lesion type: [place] artery [place] vs. transplanted heart: [place] heart Associated angina: without angina Qualified Code(s): I25.10 - Atherosclerotic heart disease of [place] coronary artery without angina pectoris Plan: Cardiac studies reviewed. In the myocardial perfusion imaging - 2020- mild reversible apical defect thought to be artifactual based on normal wall thickening; there was also basal inferior defect thought to be diaphragmatic. In the ETT portion, he was able to perform quite well without chest pain. Coronary CTA 2021- 60% mixed plaque in left main. Otherwise, there is also plaque in the LAD. Heavy calcification at D2 takeoff and cannot exclude high- grade stenosis. There is also some disease in the circumflex and right coronary artery but does not appear very significant. Cardiac catheterization 2021- 20-30% distal left main stenosis; mid LAD with 40% stenosis. Minimal irregularities elsewhere. Clinically, he has got no angina. Continue aspirin statins. LDL is okay but could be better. He states he will work on his weight and diet. Most recently 79 mg/dL but it was as much as 124 mg/dL. (2) Ascending aorta enlargement: Code(s): I77.89 - Other specified disorders of arteries and arterioles Category: Medical Plan: Ascending aorta measuring 3.9cm in echocardiogram. In the CTA, it was 3.8 cm. We can recheck in due course. (3) Aortic valve calcification: Code(s): I35.9 - Nonrheumatic aortic valve disorder, unspecified Category: Medical Plan: Calcification noted but no stenosis. In the future, could get aortic stenosis. Coding Level of Care Code Est Pt Level 4 (62428) Diagnoses Coronary artery disease involving [place] coronary artery of [place] heart without angina pectoris I25.10 Coronary Disease-Associated Artery/Lesion type: [place] artery [place] vs. transplanted heart: [place] heart Associated angina: without angina Ascending aorta enlargement I77.89 Aortic valve calcification I35.9 CPT Codes EKG - CPT: 19878-[id number], Complete ([id number])
== END 2024-04-27 15:29 | disposition home or self-care (01) ==
PROVIDERS: PCP Nurse Practitioner Family; Visit Provider Internal Medicine
DX: I25.10 Atherosclerotic heart disease of native coronary artery without angina pectoris (principal); I77.89 Other specified disorders of arteries and arterioles; I35.9 Nonrheumatic aortic valve disorder, unspecified
CPT/HCPCS: 93010; 99214

== ENCOUNTER → 2024-04-27 14:36 | Outpatient (BNVA) | payer OTHER, SELFPAY | PROVIDERS: PCP Nurse Practitioner Family; Visit Provider Internal Medicine | DX: I25.10 Atherosclerotic heart disease of native coronary artery without angina pectoris (principal); I77.89 Other specified disorders of arteries and arterioles; I35.9 Nonrheumatic aortic valve disorder, unspecified; Z79.82 Long term (current) use of aspirin; Z79.899 Other long term (current) drug therapy | CPT/HCPCS: 93005 ==

== ENCOUNTER 2024-10-17 08:23 | Outpatient (AMB) | payer OTHER, SELFPAY ==
--- NOTE | 2024-10-17 08:25 | MHC.OFFVIS ---
Vital Signs 10/17/24 08:26 Height 6 ft Weight 205 lb BMI 27.8 Intake Visit Reasons: OV-LT THANH 10/27/23 NE-follow up Intake Note: Angel is a 69 year old male who presents today for a follow up of his Left Hip s/p Left Hip Arthroplasty 10/27/23, about one year post operatively. Patient reports that he is doing well with no concerns. Allergies No Known Allergies Allergy (Verified 10/17/24 08:26) HPI HPI OV-LT THANH 10/27/23 NE-follow up: Details: Angel is a 69 year old male who presents today for a follow up of his Left Hip s/p Left Hip Arthroplasty 10/27/23, about one year post operatively. Patient reports that he is doing well with no concerns. PFSH Medical History Left hip pain Aortic valve calcification CAD (coronary artery disease) Osteoarthritis Ascending aorta enlargement Elevated cholesterol History of coronary angiogram GERD (gastroesophageal reflux disease) Surgical History History of surgery History of esophagogastroduodenoscopy (EGD) History of mandibular surgery Hx of colonoscopy History of surgery on arm History of bilateral inguinal hernia repair Family History Father Prosthetic valve dysfunction Brother Myocardial infarction complications Mother Pacemaker Social History Household Members: Spouse Housing: House Are you a primary care program director to a significant other at home: No Do you presently have visiting nurse or other home services: No Comment: left hip Patient Tobacco Use Status: Never used Tobacco e-Cigarette/Vaping Use: Never Used Second Hand Smoke Exposure: Yes (pt's smokes ) service: No Current occupational status: employed and retired Current occupation: [employer] Current occupational exposures/hazards: No Cognitive needs: No Hearing needs: No Vision needs: No Physical Exam Vital Signs: BMI result Body Mass Index 27.8 Extrem Other: Normal gait with no pain with hip range of motion Assessment & Plan Assessment & Plan (1) Status post total replacement of left hip: Code(s): Z96.642 - Presence of left artificial hip joint Category: Surgical Plan: Doing well status post left hip replacement. Continue activity as tolerated. Follow up as needed. Coding Level of Care Code Est Pt Level 3 (03775) Diagnoses Status post total replacement of left hip Z96.642
[2024-10-17 08:26] VITALS: BMI 27.8
== END 2024-10-17 08:51 | disposition home or self-care (01) ==
PROVIDERS: PCP Nurse Practitioner Family; Visit Provider Orthopaedic Surgery
DX: Z47.89 Encounter for other orthopedic aftercare (principal); Z96.642 Presence of left artificial hip joint
CPT/HCPCS: 99212

== ENCOUNTER → 2024-10-17 08:23 | Outpatient (BNVA) | payer OTHER, SELFPAY | PROVIDERS: PCP Nurse Practitioner Family; Visit Provider Orthopaedic Surgery ==

== ENCOUNTER 2024-10-26 07:19 | Outpatient (AMB) | payer OTHER, SELFPAY ==
[2024-10-26 07:33] VITALS: BP 118/64; PULSE 58; O2SAT 98; BMI 28.7
--- NOTE | 2024-10-26 07:33 | A.OFFPC_ITS ---
Vital Signs 10/26/24 07:33 Height 6 ft Weight 212 lb BMI 28.7 BP 118/64 Blood Pressure Location Rt brachial Position Sitting Pulse 58 Pulse Source Pulse Oximeter Pulse Oximetry (%) 98 Oxygen Delivery Method Room Air Intake Visit Reasons: Annual PE Intake Note: Pt is here today for his PE Allergies No Known Allergies Allergy (Verified 10/26/24 08:15) Medication List - Last Reconciled 10/26/24 by CASSIDY Marcial acetaminophen 650 mg (2 x 325 mg) PO Q6H PRN 30 days ascorbate calcium (vitamin C) 500 mg PO DAILY aspirin 81 mg PO DAILY atorvastatin 80 mg PO QPM docusate sodium 100 mg PO BID 14 days loperamide (Imodium A-D) 2 mg PO Q4H PRN walker Folding Front wheeled walker zinc acetate 50 mg PO DAILY Tobacco use date assessed: 10/26/24 Last assessed Fall Risk: 10/26/24 Dental Screening Dental Screen Date: 10/26/24 Did you have a dental visit in the last 12 months?: Yes Did you have a dental problem in the last 6 months where you did not have access to dental care?: No Was dental information given to patient?: Patient has dentist HPI Annual PE HPI Details History of Present Illness The patient is a 69-year-old male presenting for an annual physical examination. He reports intermittent chest pain related to anxiety, which typically resolves with relaxation. This has been discussed with his electroencephalographic technologist. The patient experienced chest pain the previous day following an episode of stress. There is a history of orthopedic issues concerning the left hip, managed successfully by Dr. Reilly, with no need for further follow-up. The patient reports a small umbilical hernia that was noted in a previous examination. He also has a history of shingles occurring approximately 8-9 years ago, with no recent recurrence. The patient is up-to-date with his colon screening. He denies any fever, chills, nausea, vomiting, or gastrointestinal symptoms such as blood in the stool, constipation, or diarrhea. He denies respiratory symptoms or urogenital issues. There is no prior history of tobacco use. The patient has previously received a pneumonia vaccination (Prevnar 20) but is advised to consider the second pneumonia vaccine (Pneumovax 23) given the risk of pneumonia. Health Maintenance - Colon cancer screening up to date - Discussion about flu vaccination; kip ent declined - Discussion regarding COVID-19 vaccinat ions; patient completed a series of four vaccinations - Recommendation of second pneumonia vac cination (Pneumovax 23) - Consideration of shingles vaccine, as previous shingles occurred 8-9 years ago - No current use of masks at work - Advised ear wax removal at home with Tom cheung Social History - Employment: Works at the [employer] in [place] - Formerly a teacher, left due to stress - No tobacco use; currently smokes - Works well with a dependable coworker; high job satisfaction - Significant lifestyle change from [employer] career - Engaged in physical activity, moderate exercise Review of Systems - Cardiovascular: Reports anxiety-relate d chest pain, resolves with relaxation - Respiratory: Denies shortness of breat h - Gastrointestinal: Denies nausea, vomit ing, blood in stool, constipation, or diarrhea - Genitourinary: Denies urinary frequenc y, nocturia, or weak stream - Neurological: Denies dizziness or loss of balance - General: Denies fever and chills Physical Exam General: Cooperative, healthy appearing, comfortable, no acute distress and well developed Orientation: Patient oriented x3 Limitations: No limitations Head: Normal to inspection Ears: Hearing grossly normal bilaterally, but a little bit of cerumen in the right side Nose: Normal external nose present Face and sinus: Normal facial exam Eyes: Appearance normal, both eyes and all related structures Neck: Normal visual inspection and Yes full ROM Respiratory: Normal respiratory effort and able to speak in complete sentences. Clear to auscultation bilaterally Cardiovascular: Regular rate and rhythm. Normal S1 and S2, systolic murmur GI: Normal to inspection. Soft to palpation and nontender, small umbilical hernia Skin: No rashes or lesions noted Neuro: Patient oriented x3 Extremities: Normal to inspection, but patient reports knee issues due to weight lifting and tough work jobs Results Plan - Anxiety-related chest pain: Continue c urrent management; discuss any changes with electroencephalographic technologist. - Umbilical hernia: Monitor for any sign s of complications. - Pneumonia vaccination: Administer seco nd pneumonia vaccine Pneumovax 23). - Consider shingles vaccination due to p revious history. - Schedule lab work within the next daron h, non-fasting. - Ear wax: Use Debrox at home for right ear cerumen removal. Patient was informed and verbally consented to the use of an ambient scribe for clinic note documentation during this visit. Discussion Notes We discussed the patient's chest pain, which is linked to anxiety and previously evaluated by his electroencephalographic technologist. We agreed on monitoring the small umbilical hernia, with no immediate intervention unless symptoms worsen. The patient was informed that he previously received the Prevnar 13 vaccination but should consider the Pneumovax 23 vaccine for better pneumonia protection. While the shingles vaccine is optional for him, it can reduce the risk of severe recurrence. As a part of preventative care, I encouraged the patient to manage ear wax with Debrox at home, explaining it could prevent any disruption in hearing. 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 Patient Instructions - Monitor for any increase in chest pain or new symptoms; consult electroencephalographic technologist if necessary. - Consider receiving the Pneumovax 23 va ccine. - Consider receiving the shingles vaccin e. - Use Debrox for earwax management on th e right ear. - Proceed with lab tests within the next month. - Follow up in one year for the next mic [facility] physical. [facility] Medical History Left hip pain Aortic valve calcification CAD (coronary artery disease) Osteoarthritis Ascending aorta enlargement Elevated cholesterol History of coronary angiogram GERD (gastroesophageal reflux disease) Surgical History History of surgery History of esophagogastroduodenoscopy (EGD) History of mandibular surgery Hx of colonoscopy History of surgery on arm History of bilateral inguinal hernia repair Family History Father Prosthetic valve dysfunction Brother Myocardial infarction complications Mother Pacemaker Social History Household Members: Spouse Housing: House Are you a primary acute care assistant to a significant other at home: No Do you presently have visiting nurse or other home services: No Comment: left hip Patient Tobacco Use Status: Never used Tobacco e-Cigarette/Vaping Use: Never Used Second Hand Smoke Exposure: Yes (pt's smokes ) service: No Current occupational status: employed and retired Current occupation: [employer] Current occupational exposures/hazards: No Cognitive needs: No Hearing needs: No Vision needs: No Questionnaire PHQ-9 Over the last 2 weeks, how often have you been bothered by any of the following problems? 1. Little interest or pleasure in doing things: not at all 2. Feeling down, depressed, or hopeless: not at all 3. Trouble falling or staying asleep, or sleeping too much: not at all 4. Feeling tired or having little energy: not at all 5. Poor appetite or overeating: not at all 6. Feeling bad about yourself - or that you are a failure or have let yourself or your family down: not at all 7. Trouble concentrating on things, such as reading the newspaper or watching television: not at all 8. Moving or speaking so slowly that other people could have noticed. Or the opposite - being so fidgety or restless that you have been moving around a lot more than usual: not at all 9. Thoughts that you would be better off or of hurting yourself in some way: not at all Total score: 0 Depression Screening Interpretation: Negative Depression Screening Done: Yes 18208 - PHQ-9 Billing: Yes Source: Developed by Drs. Alexx Young, Jeanette Hernandez, Gio Howard and colleagues, with an educational monie from [employer]. Thrive Questionnaire Date Thrive assessed: 10/26/24 I am a: Patient What is your living situation today?: I have a steady place to live Within the past 12 months, did the food you bought not last and you didn't have the money to get more?: I choose not to answer this question Within the past 12 months, did you worry whether your food would run out before you got money to buy more?: I choose not to answer this question Do you have trouble paying for medicines?: No Do you have trouble getting transportation to medical appointments?: No Do you have trouble paying your heating and electricity bill?: No Do you have trouble taking care of your child, family member or friend?: No Do you have trouble with day-to-day activities such as bathing, preparing meals, shopping, managing finances, etc.?: No Are you currently unemployed and looking for a job?: No Are you interested in more education?: Yes Please select the resources that you would like help with: Education Currently or been in a relationship where the following occur: I choose not to answer THRIVE Score: 0 AUDIT C Alcohol Use Questionnaire (AUDIT-C) 1. How often do you have a drink containing alcohol?: Monthly or less 2. How many drinks containing alcohol do you have on a typical day when you are drinking?: 1 or 2 3. How often do you have six or more drinks on one occasion?: Never Total Score: 1 Score Reviewed/Action Taken: Yes DRAKE-7 AMB Questionnaire DRAKE-7 Date DRAKE - 7 assessed: 10/26/24 Feeling nervous, anxious, or on edge: 0 = Not at all Not being able to stop or control worryin = Not at all Worrying too much about different things: 0 = Not at all Trouble relaxin = Not at all Being so restless that it is hard to sit still: 0 = Not at all Becoming easily annoyed or irritable: 0 = Not at all Feeling afraid as if something awful might happen: 0 = Not at all Total DRAKE-7 score (0-4 normal; 5-9 mild; 10-14 moderate; 15-21 severe): 0 Source: Developed by Drs. Alexx Young, Jeanette Hernandez, Gio Howard and colleagues, with an educational monie from [employer]. Physical exam (Primary Care) Vital Signs: Last Vital Signs Pulse 58 10/26/24 07:33 BP 118/64 10/26/24 07:33 Pulse Ox 98 10/26/24 07:33 Oxygen Delivery Method Room Air 10/26/24 07:33 BMI result Body Mass Index 28.7 Tobacco/Smoking Status: Tobacco use Status Tobacco use date assessed 10/26/24 10/26/24 07:36 Patient Tobacco Use Status Never used Tobacco 10/26/24 07:36 e-Cigarette/Vaping Use Never Used 10/26/24 07:36 PHQ-9: PHQ-9 Score PHQ-9: Total score 0 10/26/24 07:36 Depression Screening Interpretation: Negative Thrive Assessment: Date of Thrive Assessment Date Thrive assessed 10/26/24 10/26/24 07:42 Currently or been in a relationship where the following occur: I choose not to answer Coding Level of Care Code Est Pt Prev Care >65y(28011) Diagnoses Physical exam Z00.00 Screening PSA (prostate specific antigen) Z12.5 Additional Codes PHQ-9 - 90912 - PHQ-9 Billing: Yes ([id number]) Assessment & Plan Assessment & Plan (1) Physical exam: Code(s): Z00.00 - Encounter for general adult medical examination without abnormal findings Category: Medical (2) Screening PSA (prostate specific antigen): Code(s): Z12.5 - Encounter for screening for malignant neoplasm of prostate Category: Medical Plan . Orders: Orders Complete Blood Count Auto Diff Today Z00.00 - Encounter for general adult medical examination without abnormal findings Comprehensive [place]. Panel Fast Today Z00.00 - Encounter for general adult medical examination without abnormal findings TSH reflex Free T4 Today Z00.00 - Encounter for general adult medical examination without abnormal findings Lipid Panel Today Z00.00 - Encounter for general adult medical examination without abnormal findings Prostate Specific Antigen Scr Today Z12.5 - Encounter for screening for ma lignant neoplasm of prostate UA CC w/rflx Micro + Cult Today Z00.00 - Encounter for general adult medical examination without abnormal findings
== END 2024-10-26 09:12 | disposition home or self-care (01) ==
PROVIDERS: PCP Nurse Practitioner Family; Visit Provider Nurse Practitioner Family
DX: Z00.00 Encounter for general adult medical examination without abnormal findings (principal); Z12.5 Encounter for screening for malignant neoplasm of prostate

== ENCOUNTER → 2024-10-26 07:19 | Outpatient (BNVA) | payer OTHER, SELFPAY | PROVIDERS: PCP Nurse Practitioner Family; Visit Provider Nurse Practitioner Family | DX: Z00.00 Encounter for general adult medical examination without abnormal findings (principal); R07.89 Other chest pain; K42.9 Umbilical hernia without obstruction or gangrene | CPT/HCPCS: 96127 ==

== ENCOUNTER → 2024-10-27 15:02 | Outpatient (BNVA) | payer SELFPAY | PROVIDERS: PCP Nurse Practitioner Family; Visit Provider Physician Assistant | DX: Z02.79 Encounter for issue of other medical certificate (principal) ==

== ENCOUNTER 2025-04-26 06:01 | Outpatient (REF) | payer OTHER, SELFPAY ==
--- OUTSIDE RECORDS SUMMARY | 2025-04-26 06:03 | XMS_ITS | Patient Health Record ---
Author Organization [facility] Address [address] [place] [id number] Care Team Providers Care Shoe Turner Name Role Phone BALJINDER AVALOS Primary Care Provider Hugo Kasper Jr Unavailable [phone] Allergies No Known Allergies Reason For Referral No Information Medications Medication SIG (Take, Route, Frequency, Duration) Notes Start Date End Date Status Simvastatin 20 MG 1 tablet in the even ing Orally Once a day Active Vitamin C Active Zinc Active MiraLax (colon prep) 17 GM/SCOOP mixed with Gatorade or Crystal Light Orally begin at 5:00 p.m. the day before the procedure for 1 day 03/20/2022 Active Fish Oil Active Aspirin 81 Active Immunizations Vaccine Route Administration Date Status Comme nts Influenza Unknown 12/21/2019 Refused Social History Alcohol Screen Question Answer Notes Did you [...] Never (0 point) Points 1 Interpretation Negative Problems Problem Type SNOMED Code ICD Code Onset Dates Problem Status W/U Status Risk Notes Problem 803311750 Colon cancer screening (Z12.11) Active confirmed Problem History of polyp of colon (situation) (204326107) Personal history of colonic polyps (Z86.010) Active confirmed Problem 738477297 Gastroesophageal reflux disease without esophagitis (K21.9) Active confirmed Problem 915872184 Long-term use of aspirin therapy (Z79.82) Active confirmed Plan Of Treatment Future Test Test Name Order Date UPPER GI ENDOSCOPY 04/19/2014 COLONOSCOPY 04/19/2014 COLONOSCOPY 01/01/2020 COLONOSCOPY 03/20/2022 Insurance Providers Payer Name Payer Address Payer Phone Subscriber Number Group Number Insured Name Patient Relationship to Insured Coverage Start Date Coverage End Date [facility] Medicare Advantage Plan [address] [address] [place] [address] [id number] JAZZ THOMPSON Self - patient is the insured Medical (General) History Medical History History ICD Code elevated cholesterol Gastroesophageal reflux disease, EGD 06/16 4, no HP or BE. Chest pain, negative cardiac evaluation with EKG, stress test, and echocardiogram 06/05 Colonoscopy 06/29, tubular adenoma, five- year followup due 07/04 Surgical History Surgery Date(Month/Year) double hernia repair 1965 right biceps tendon repair 2004
[2025-04-26 10:34] LABS: MANUAL DIFF FLAG NO
[2025-04-26 10:40] LABS: Basophils Percent Auto 0.6 % (0-2); Eosinophils Absolute Auto 0.3 X10*3/uL (0.0-0.4); Eosinophils Percent Auto 4.9 % (0-4); Hematocrit 41.8 % (42.0-52.0); Imm Gran Abs Auto 0.01 X10*3/uL (0.00-0.03); Imm Gran Pct Auto 0.2 % (0.0-0.4); Lymphocytes Absolute Auto 2.1 X10*3/uL (1.2-4.9); Lymphocytes Percent Auto 41.9 % (20-40); Mean Corpuscular HGB Conc 33.5 g/dl (31.0-36.0); Mean Corpuscular Hemoglobin 30.7 pg (27.0-33.0); Mean Corpuscular Volume 91.7 fL (80.0-98.0); Mean Platelet Volume 11.4 fL (9.4-12.4); Monocytes Absolute Auto 0.6 X10*3/uL (0.1-1.2); Monocytes Percent Auto 12.3 % (2-11); Neutrophils Absolute Auto 2.1 x10*3/uL (2.0-8.3); Neutrophils Percent Auto 40.1 % (45-73); Platelet Count 167 X10*3/uL (160-400); Red Blood Count 4.56 X10*6/uL (4.60-5.80); Red Cell Distribution Width 12.1 % (11.0-16.0); White Blood Count 5.1 X10*3/uL (4.8-10.8)
[2025-04-26 10:50] LABS: Appearance Urine Clear; Color Urine Yellow; Glucose Urine UA Negative (Negative); Leukocyte Esterase Urine Negative (Negative); Nitrite Urine Negative (Negative); Urine Blood Negative (Negative); Urine Ketones Negative (Negative); Urine Protein Negative (Neg-Trace)
[2025-04-26 10:57] LABS: Alanine Aminotransferase 25 U/L (0-40); Albumin Level 4.2 g/dL (3.5-5.0); Alkaline Phosphatase 57 U/L (39-117); Anion Gap 9 (12-20); Aspartate Amino Transferase 33 U/L (5-37); Bilirubin Total 1.1 mg/dL (0.0-1.0); Blood Urea Nitrogen 28 mg/dL (9-16); Calcium 9.2 mg/dL (8.4-10.2); Carbon Dioxide 29 mmol/L (22-29); Chloride 106 mmol/L (96-108); Cholesterol 155 mg/dL (<200); Estimated Glomerular Filt Rate > 60; Glucose Fasting 107 mg/dL (60-99); HDL Cholesterol 54 mg/dL (>40); LDL Cholesterol Calculated 90 mg/dL (<100); Potassium 3.7 mmol/L (3.3-5.1); Sodium 140 mmol/L (135-145); Triglycerides 58 mg/dL (<150)
[2025-04-26 11:09] LABS: Prostate Specific Antigen Scr 2.14 ng/mL (<0.05-4.0)
[2025-04-26 11:11] LABS: TSH reflex Free T4 2.37 uIU/mL (0.32-4.0)
== END 2025-04-26 06:02 | disposition home or self-care (01) ==
LOC: HO.HMGCLDS 06:01
PROVIDERS: PCP Nurse Practitioner Family; Visit Provider Nurse Practitioner Family
DX: Z00.00 Encounter for general adult medical examination without abnormal findings (principal); Z12.5 Encounter for screening for malignant neoplasm of prostate; Z13.0 Encounter for screening for diseases of the blood and blood-forming organs and certain disorders involving the immune mechanism; Z13.29 Encounter for screening for other suspected endocrine disorder; Z13.220 Encounter for screening for lipoid disorders
CPT/HCPCS: 36415; 80053; 80061; 81003; 84153; 84443; 85025

== ENCOUNTER 2025-04-27 14:23 | Outpatient (AMB) | payer OTHER, SELFPAY ==
--- NOTE | 2025-04-27 14:40 | MHC.OFFVIS ---
Vital Signs 04/27/25 14:41 Height 6 ft Weight 206 lb 5.643 oz BMI 28.0 BP 120/72 Blood Pressure Location Lt brachial Position Sitting Pulse 73 Pulse Source Monitor Intake Visit Reasons: 1 year fu Insurance Investigator Required: No Accompanied by: Self / Same As Patient Allergies No Known Allergies Allergy (Verified 10/26/24 08:15) Medication List - Last Reconciled 04/27/25 by Carlito Zacarias MD acetaminophen 650 mg (2 x 325 mg) PO Q6H PRN 30 days ascorbate calcium (vitamin C) 500 mg PO DAILY aspirin 81 mg PO DAILY atorvastatin 80 mg PO QPM docusate sodium 100 mg PO BID 14 days loperamide (Imodium A-D) 2 mg PO Q4H PRN walker Folding Front wheeled walker zinc acetate 50 mg PO DAILY HPI Comments Details: Angel returns for follow-up regarding coronary disease. In the past, he was getting chest pains and arm pains. Subsequently, he underwent a complete workup including cardiac catheterization. He has nonobstructive CAD, but nothing hemodynamically significant. Since last seen, he states he feels quite good. He does not have any symptoms like angina or shortness of breath or anything of cardiac nature. He works full-time in [place] and physically quite active, without any limitations. [facility] Medical History Left hip pain Aortic valve calcification CAD (coronary artery disease) Osteoarthritis Ascending aorta enlargement Elevated cholesterol History of coronary angiogram GERD (gastroesophageal reflux disease) Surgical History History of surgery History of esophagogastroduodenoscopy (EGD) History of mandibular surgery Hx of colonoscopy History of surgery on arm History of bilateral inguinal hernia repair Family History Father Prosthetic valve dysfunction Brother Myocardial infarction complications Mother Pacemaker Social History Household Members: Spouse Housing: House Are you a primary youth care professional to a significant other at home: No Do you presently have visiting nurse or other home services: No Comment: left hip Patient Tobacco Use Status: Never used Tobacco e-Cigarette/Vaping Use: Never Used Second Hand Smoke Exposure: Yes (pt's smokes ) service: No Current occupational status: employed and retired Current occupation: [employer] Current occupational exposures/hazards: No Cognitive needs: No Hearing needs: No Vision needs: No Review of Systems Const Denies chills, Denies fatigue, Denies fever(s), Denies frequent falls, Denies weakness, Denies weight gain and Denies weight loss ENT Denies dizziness Card Denies chest pain, Denies leg edema, Denies lightheadedness, Denies palpitations, Denies dyspnea and Denies dyspnea on exertion Resp Denies cough, Denies dyspnea and Denies dyspnea on exertion GI Denies hematochezia Musc Denies abnormal gait, Denies muscle weakness, Denies numbness, Denies radiating pain into limb and Denies tingling Neuro Denies abnormal gait, Denies dizziness, Denies frequent falls, Denies numbness, Denies tingling and Denies weakness Endo Denies fatigue and Denies palpitations Physical Exam Vital Signs: Last Vital Signs Pulse 73 04/27/25 14:41 BP 120/72 04/27/25 14:41 BMI result Body Mass Index 28.0 Const General: comfortable and no acute distress Orientation/consciousness: patient oriented x3 HEENT Other: Unremarkable Head: Yes normal to inspection Neck Neck: Yes normal visual inspection Chest Chest palpation & inspection: normal inspection of the chest Resp Auscultation: clear to auscultation bilaterally Cardio Palpation: normal PMI Heart sounds: S1 normal heart sound present, S2 normal heart sound present, no gallops, Murmur heart sound present systolic II/ and no rubs GI Palpation (GI): Soft to palpation Back/Spine/Pelvis Other: unremarkable Skin General skin exam: no rashes or lesions noted Neuro General: patient oriented x3 Extrem General: Yes normal to inspection Psych Mental Status: mental status grossly normal Office Procedures EKG Details: EKG with underlying sinus rhythm at 73/Min; T inversions in lead 3, AVF. [id number], Complete Assessment & Plan Assessment & Plan (1) Coronary artery disease: Code(s): I25.10 - Atherosclerotic heart disease of [place] coronary artery without angina pectoris Category: Medical Qualifiers: Associated angina: without angina Coronary Disease-Associated Artery/Lesion type: [place] artery Crow vs. transplanted heart: [place] heart Qualified Code(s): I25.10 - Atherosclerotic heart disease of [place] coronary artery without angina pectoris Plan: Cardiac studies reviewed. In the myocardial perfusion imaging - 2020- mild reversible apical defect thought to be artifactual based on normal wall thickening; there was also basal inferior defect thought to be diaphragmatic. In the ETT portion, he was able to perform quite well without chest pain. Cardiac catheterization 2021- 20-30% distal left main stenosis; mid LAD with 40% stenosis. Minimal irregularities elsewhere. Clinically, he has got no angina. Continue aspirin, statins. LDL 90 mg/dL. We discussed about adding Zetia but he states he wanted just focus on weight and diet for now. Recheck lipids before next appointment. (2) Ascending aorta enlargement: Code(s): I77.89 - Other specified disorders of arteries and arterioles Category: Medical Plan: Ascending aorta measuring 3.9cm in echocardiogram. In the CTA, it was 3.8 cm. Follow up periodically. (3) Aortic valve calcification: Code(s): I35.9 - Nonrheumatic aortic valve disorder, unspecified Category: Medical Plan: Calcification noted but no stenosis. In the future, could get aortic stenosis. Plan Focus placed on lifestyle modifications for hyperlipidemia management. Patient prefers dietary changes over medication. Aim to reduce high-fat foods and adjust portions. Aim for 10% weight loss for cardiovascular improvement. Phased reduction in alcohol intake discussed. Follow-up labs planned to reassess cholesterol levels. Patient was informed and verbally consented to the use of an ambient scribe for clinic note documentation during this visit. Orders: Orders Liver Panel 4 Months I25.10 - Atherosclerotic heart disease of [place] coronary artery without angina pectoris Lipid Panel 4 Months E78.5 - Hyperlipidemia, unspecified, I25.10 - Atherosclerotic heart disease of [place] coronary artery without angina pectoris Patient Instructions: - Aim to reduce portion sizes and incorporate more salads into your diet. - Limit intake of high-cholesterol foods and pasta. - Try to cut down on beer consumption, aiming to drink less regularly. - Work towards losing weight. - Follow-up on cholesterol levels as planned in a few months to assess progress. - Report any new or worsening symptoms to your healthcare provider. Coding Level of Care Code Est Pt Level 4 (91704) Complex EM visit Add On G2211 Diagnoses Coronary artery disease involving [place] coronary artery of [place] heart without angina pectoris I25.10 Associated angina: without angina Coronary Disease-Associated Artery/Lesion type: [place] artery Crow vs. transplanted heart: [place] heart Ascending aorta enlargement I77.89 Aortic valve calcification I35.9 CPT Codes EKG - CPT: 16382-[id number], Complete ([id number])
[2025-04-27 14:41] VITALS: BP 120/72; PULSE 73; BMI 28.0
--- OUTSIDE RECORDS SUMMARY | 2025-04-27 16:57 | XMS_ITS | Patient Health Record ---
Author Organization [facility] Address [address] [place] [id number] Care Team Providers Care Flooring Machine Feeder Name Role Phone BALJINDER AVALOS Primary Care Provider Hugo Kasper Jr Unavailable [phone] Allergies No Known Allergies Reason For [...] Problem Status W/U Status Risk Notes Problem 054052402 Colon cancer screening (Z12.11) Active confirmed Problem History of polyp of colon (situation) (284082763) Personal history of colonic polyps (Z86.010) Active confirmed Problem 325794221 Gastroesophageal reflux disease without esophagitis (K21.9) Active confirmed Problem 790099178 Long-term use of aspirin therapy (Z79.82) Active confirmed Plan Of Treatment Future Test Test Name Order Date UPPER GI ENDOSCOPY 04/19/2014 COLONOSCOPY 04/19/2014 COLONOSCOPY 01/01/2020 COLONOSCOPY 03/20/2022 Insurance Providers Payer Name Payer Address Payer Phone Subscriber Number Group Number Insured Name Patient Relationship to Insured Coverage Start Date Coverage End Date [facility] Medicare Advantage Plan [address] [address] [place] [address] [id number] JAZZ THOMPSON Self - patient is the [...]
== END 2025-04-27 14:54 | disposition home or self-care (01) ==
LOC: HO.HCS 14:24
PROVIDERS: PCP Nurse Practitioner Family; Visit Provider Internal Medicine
DX: I25.10 Atherosclerotic heart disease of native coronary artery without angina pectoris (principal); I77.89 Other specified disorders of arteries and arterioles; I35.9 Nonrheumatic aortic valve disorder, unspecified
CPT/HCPCS: 93010; 99214

== ENCOUNTER → 2025-04-27 14:23 | Outpatient (BNVA) | payer OTHER, SELFPAY | PROVIDERS: PCP Nurse Practitioner Family; Visit Provider Internal Medicine | DX: I25.10 Atherosclerotic heart disease of native coronary artery without angina pectoris (principal); I77.89 Other specified disorders of arteries and arterioles; I35.9 Nonrheumatic aortic valve disorder, unspecified | CPT/HCPCS: 93005 ==

== ENCOUNTER 2025-11-03 06:01 | Outpatient (REF) | payer OTHER, SELFPAY ==
--- OUTSIDE RECORDS SUMMARY | 2025-11-03 06:05 | XMS_ITS | Patient Health Record ---
Author Organization [facility] Address [address] [place] [id number] Care Team Providers Care Lead Burner Name Role Phone BALJINDER AVALOS Primary Care Provider Hugo Kasper Jr Unavailable [phone] Allergies No Known Allergies Reason For Referral No Information Medications Medication SIG (Take, Route, Frequency, Duration) Notes Start Date End Date Status Simvastatin 20 MG Tablet 1 tablet in the evening Orally Once a day Active Vitamin C Active Zinc Active MiraLax (colon prep) 17 GM/SCOOP Powder mixed with Gatorade or Crystal Light Orally begin at 5:00 p.m. the day before the procedure; Duration: 1 day 03/20/2022 Active Fish Oil Active Aspirin 81 Active Immunizations Vaccine Route Administration Date Status Comme nts Influenza Unknown 12/21/2019 Refused Social History Social History Drugs/Alcohol: Social Info Question Answer Notes Alcohol Screen Did you have a drink containing alcohol in the past year? Yes How often did you have a drink containing alcohol in the past year? Monthly or less (1 point) How many drinks did you have on a typical day when you were drinking in the past year? 1 or 2 drinks (0 point) How often did you have 6 or more drinks on one occasion in the past year? Never (0 point) Points 1 Interpretation Negative Additional Details Category Social Info Options Details Miscellaneous: Marital status: Occupation: [employer] Vac Problems Problem Type SNOMED Code ICD Code Onset Dates Problem Status W/U Status Risk Notes Problem Colon cancer screening (422670177) Colon cancer screening (Z12.11) Active confirmed Problem History of polyp of colon (situation) (059862160) Personal history of colonic polyps (Z86.010) Active confirmed Problem Gastroesophageal reflux disease without esophagitis (274552797) Gastroesophageal reflux disease without esophagitis (K21.9) Active confirmed Problem Long-term current use of antiplatelet drug (943468667626304) Long-term use of aspirin therapy (Z79.82) Active confirmed Plan Of Treatment Future Test Test Name Order Date UPPER GI ENDOSCOPY 04/19/2014 COLONOSCOPY 04/19/2014 COLONOSCOPY 01/01/2020 COLONOSCOPY 03/20/2022 Insurance Providers Payer Name Payer Address Payer Phone Subscriber Number Group Number Insured Name Patient Relationship to Insured Coverage Start Date Coverage End Date [facility] Medicare Advantage Plan [address] [address] [place] [address] [id number] JAZZ THOMPSON Self - patient is the [...]
[2025-11-03 10:07] LABS: MANUAL DIFF FLAG NO
[2025-11-03 10:16] LABS: Hematocrit 42.1 % (42.0-52.0); Hemoglobin 14.1 g/dl (14.0-18.0); Imm Gran Abs Auto 0.01 X10*3/uL (0.00-0.03); Imm Gran Pct Auto 0.2 % (0.0-0.4); Lymphocytes Absolute Auto 2.1 X10*3/uL (1.2-4.9); Mean Corpuscular HGB Conc 33.5 g/dl (31.0-36.0); Mean Corpuscular Hemoglobin 30.5 pg (27.0-33.0); Mean Corpuscular Volume 91.1 fL (80.0-98.0); NRBC Abs Auto 0.000 X10*3/uL (0.0-0.012); NRBC Pct Auto 0.0 /100WBC (0.0-0.2); Platelet Count 168 X10*3/uL (160-400); Red Blood Count 4.62 X10*6/uL (4.60-5.80); White Blood Count 5.4 X10*3/uL (4.8-10.8)
[2025-11-03 10:32] LABS: Appearance Urine Clear; Glucose Urine UA Negative (Negative); PH 5.5 (5.0-9.0); Specific Gravity - Urine 1.025 (1.005-1.025)
[2025-11-03 10:54] LABS: Alanine Aminotransferase 30 U/L (0-40); Albumin Level 4.5 g/dL (3.5-5.0); Alkaline Phosphatase 58 U/L (39-117); Anion Gap 12 (12-20); Aspartate Amino Transferase 41 U/L (5-37); Blood Urea Nitrogen 22 mg/dL (9-16); Calcium 9.7 mg/dL (8.4-10.2); Carbon Dioxide 25 mmol/L (22-29); Chloride 106 mmol/L (96-108); Cholesterol 148 mg/dL (<200); Estimated Glomerular Filt Rate > 60; HDL Cholesterol 51 mg/dL (>40); Potassium 3.7 mmol/L (3.3-5.1); Sodium 139 mmol/L (135-145); Total Protein 7.3 g/dL (6.5-8.0); Triglycerides 65 mg/dL (<150)
== END 2025-11-03 06:02 | disposition home or self-care (01) ==
LOC: HO.HMGCLDS 06:01
PROVIDERS: Absent Provider Internal Medicine; PCP Nurse Practitioner Family; Visit Provider Nurse Practitioner Family
DX: I25.10 Atherosclerotic heart disease of native coronary artery without angina pectoris (principal); E78.5 Hyperlipidemia, unspecified
CPT/HCPCS: 36415; 80053; 80061; 80076; 81003; 82248; 84443; 85025

== ENCOUNTER 2025-11-06 07:47 | Outpatient (AMB) | payer OTHER, SELFPAY ==
--- OUTSIDE RECORDS SUMMARY | 2025-11-06 07:52 | XMS_ITS | Patient Health Record ---
Author Organization [facility] Address [address] [place] [id number] Care Team Providers Care Therapist Radiation Name Role Phone BALJINDER AVALOS Primary Care Provider Hugo Kasper Jr Unavailable [phone] Allergies No Known Allergies Reason For Referral [...] Info Options Details Miscellaneous: Marital status: Occupation: [employer] Vac Problems Problem Type SNOMED Code ICD Code Onset Dates Problem Status W/U Status Risk Notes Problem Colon cancer screening (559605133) Colon cancer screening (Z12.11) Active confirmed Problem History of polyp of colon (situation) (552912311) Personal history of colonic polyps (Z86.010) Active confirmed Problem Gastroesophageal reflux disease without esophagitis (669258289) Gastroesophageal reflux disease without esophagitis (K21.9) Active confirmed Problem Long-term current use of antiplatelet drug (125829880467067) Long-term use of aspirin therapy (Z79.82) Active confirmed Plan Of Treatment Future Test Test Name Order Date UPPER GI ENDOSCOPY 04/19/2014 COLONOSCOPY 04/19/2014 COLONOSCOPY 01/01/2020 COLONOSCOPY 03/20/2022 Insurance Providers Payer Name Payer Address Payer Phone Subscriber Number Group Number Insured Name Patient Relationship to Insured Coverage Start Date Coverage End Date [facility] Medicare Advantage Plan [address] [address] [place] [address] [id number] JAZZ THOMPSON Self - patient is the [...]
--- NOTE | 2025-11-06 08:04 | MHC.PC.OV ---
Vital Signs 11/06/25 08:05 Height 6 ft Weight 201 lb BMI 27.3 BP 122/78 Blood Pressure Location Lt brachial Position Sitting Respiration 16 Pulse 56 Pulse Source Pulse Oximeter Pulse Oximetry (%) 99 Oxygen Delivery Method Room Air Intake Visit Reasons: PE Analytics Architect Required: No Accompanied by: Self / Same As Patient Allergies No Known Allergies Allergy (Verified 10/26/24 08:15) Medication List - Last Reconciled 11/06/25 by CASSIDY Marcial acetaminophen 650 mg (2 x 325 mg) PO Q6H PRN 30 days ascorbate calcium (vitamin C) 500 mg PO DAILY aspirin 81 mg PO DAILY atorvastatin 80 mg PO QPM docusate sodium 100 mg PO BID 14 days loperamide (Imodium A-D) 2 mg PO Q4H PRN walker Folding Front wheeled walker zinc acetate 50 mg PO DAILY Tobacco use date assessed: 11/06/25 Fall risk assessment: No Falls in past year Last assessed Fall Risk: 11/06/25 Dental Screening Dental Screen Date: 11/06/25 Did you have a dental visit in the last 12 months?: Yes Did you have a dental problem in the last 6 months where you did not have access to dental care?: No Was dental information given to patient?: Patient has dentist HPI PE HPI Details History of Present Illness The patient is a 70 year old male presenting for a physical exam. He reports pain on the right side of his head in the anterior temporal region, which has been occurring for the last 7 to 8 months. He describes the sensation as intermittent pressure that can last from minutes to hours, either coming and going or persisting throughout the day. He has a history of hitting his head on pipes at work over the years. His history is significant for coronary artery disease, and he follows with cardiology on a regular basis. Recent labs revealed an LDL of 84 and slightly elevated liver enzymes. His colonoscopy and PSA are up to date. He denies any chest pain, shortness of breath, abdominal pain, blood in stool, constipation, or diarrhea. He also denies any suicidal or homicidal ideation. Health Maintenance - Colonoscopy is up to date. - PSA is up to date. - He is due for vaccinations, and a prescription was provided. - The patient follows with cardiology regularly for coronary artery disease. - His LDL was 84, with a goal of less than 70. Social History - He reports hitting his head on pipes at work over the years. Review of Systems - Neurological: Reports pain in the right side of his head in the anterior temporal region, described as an intermittent pressure feeling for the last 7-8 months. - Cardiovascular: Denies chest pain. - Respiratory: Denies shortness of breath. - Gastrointestinal: Denies abdominal pain, blood in stool, constipation, or diarrhea. - Psychiatric: Denies suicidal or homicidal ideation. Physical Exam General: Cooperative, healthy appearing, comfortable, no acute distress and well developed Orientation: Patient oriented x3 Limitations: No limitations Head: Pain reported to the right side of the head or anterior temporal region, intermittent pressure feeling noted Ears: Hearing grossly normal bilaterally Nose: Normal external nose present Face and sinus: Normal facial exam Eyes: Appearance normal, both eyes and all related structures Neck: Normal visual inspection and Yes full ROM Respiratory: Normal respiratory effort and able to speak in complete sentences. Clear to auscultation bilaterally Cardiovascular: Systolic murmur noted. Regular rate and rhythm. Normal S1 and S2 GI: Normal to inspection. Soft to palpation and nontender. Small umbilical hernia noted : Testicles without masses/lesions and no hernias appreciated Skin: No rashes or lesions noted Neuro: Patient oriented x3. BRENDA 2 through 12 intact Extremities: Normal to inspection Results - Labs: - His recent labs showed slightly elevated liver enzymes. - His LDL was noted to be 84. Plan 1. Anterior Temporal Headache The patient reports an intermittent, pressure-like pain in the right anterior temporal region for the past 7-8 months, with a history of hitting his head at work. Physical exam was normal, with cranial nerves II-XII intact. A CT scan of the head will be ordered for further evaluation. 2. Elevated Liver Enzymes Recent labs showed slightly elevated liver enzymes. To investigate this, a hepatitis screen and an abdominal ultrasound will be ordered. educated on proper diet and limiting ETOH 3. Systolic Heart Murmur A systolic murmur was noted on examination. The patient already follows up with cardiology on a regular basis and should continue to do so. 4. Preventative Care The patient is due for vaccinations. A prescription was written for him to obtain these at his pharmacy. 5. Umbilical Hernia A small umbilical hernia was noted on physical exam. No acute intervention is planned; will continue to monitor. 6. CAD In the context of his coronary artery disease, his LDL of 84 is above the goal of less than 70. Recommended starting gdmj-zld-ptzxniz citrus bergamot. Plan to recheck cholesterol in approximately two months. 7. Encounter for general adult medical examination with abnormal findings Z00.01 Discussion Notes I discussed the patient's recent lab results, noting the slightly elevated liver enzymes and an LDL of 84. I informed him that we will order a hepatitis screen and an abdominal ultrasound to further evaluate the liver enzymes. For his cholesterol, I explained the goal is an LDL below 70 due to his coronary artery disease, and I recommended he start upis-yys-fmhfoeu citrus bergamot with a plan to recheck his levels in two months. We also reviewed his right-sided temporal head pain, and I advised that I will be ordering a CAT scan of his head to investigate this symptom. Finally, I noted he is due for vaccinations and have provided a prescription for him to fill at his pharmacy. Patient Instructions - You are due for vaccinations. A prescription was sent for you to get these at your pharmacy. - We are ordering a hepatitis screen and an abdominal ultrasound to check on your elevated liver enzymes. - Start taking tdre-mtv-czovwjh citrus bergamot to help lower your cholesterol. We will recheck your cholesterol in about two months. - Continue to follow up with your cardiology doctor on a regular basis. - We will get a CAT scan of your head to look into the cause of your headaches. [facility] Medical History Left hip pain Aortic valve calcification CAD (coronary artery disease) Osteoarthritis Ascending aorta enlargement Elevated cholesterol History of coronary angiogram GERD (gastroesophageal reflux disease) Surgical History History of surgery History of esophagogastroduodenoscopy (EGD) History of mandibular surgery Hx of colonoscopy History of surgery on arm History of bilateral inguinal hernia repair Family History Father Prosthetic valve dysfunction Brother Myocardial infarction complications Mother Pacemaker Social History Household Members: Spouse Housing: House Are you a primary animal care giver to a significant other at home: No Do you presently have visiting nurse or other home services: No Comment: left hip Patient Tobacco Use Status: Never used Tobacco e-Cigarette/Vaping Use: Never Used Second Hand Smoke Exposure: Yes (pt's smokes ) service: No Current occupational status: employed and retired Current occupation: [employer] Current occupational exposures/hazards: No Cognitive needs: No Hearing needs: No Vision needs: No Questionnaire PHQ-9 Over the last 2 weeks, how often have you been bothered by any of the following problems? 1. Little interest or pleasure in doing things: nearly every day 2. Feeling down, depressed, or hopeless: not at all 3. Trouble falling or staying asleep, or sleeping too much: not at all 4. Feeling tired or having little energy: not at all 5. Poor appetite or overeating: not at all 6. Feeling bad about yourself - or that you are a failure or have let yourself or your family down: not at all 7. Trouble concentrating on things, such as reading the newspaper or watching television: not at all 8. Moving or speaking so slowly that other people could have noticed. Or the opposite - being so fidgety or restless that you have been moving around a lot more than usual: not at all 9. Thoughts that you would be better off or of hurting yourself in some way: not at all Total score: 3 Depression Screening Interpretation: Negative Depression Screening Done: Yes 95688 - PHQ-9 Billing: Yes Source: Developed by Drs. Alexx Young, Jeanette Hernandez, Gio Howard and colleagues, with an educational monie from [employer]. Thrive Questionnaire Date Thrive assessed: 10/26/24 I am a: Patient What is your living situation today?: I have a steady place to live Within the past 12 months, did the food you bought not last and you didn't have the money to get more?: Never true Within the past 12 months, did you worry whether your food would run out before you got money to buy more?: Never true Do you have trouble paying for medicines?: No Do you have trouble getting transportation to medical appointments?: No Do you have trouble paying your heating and electricity bill?: No Do you have trouble taking care of your child, family member or friend?: No Do you have trouble with day-to-day activities such as bathing, preparing meals, shopping, managing finances, etc.?: No Are you currently unemployed and looking for a job?: No Are you interested in more education?: No Please select the resources that you would like help with: None Currently or been in a relationship where the following occur: No concerns reported THRIVE Score: 0 AUDIT C Alcohol Use Questionnaire (AUDIT-C) 1. How often do you have a drink containing alcohol?: 4 or more times a week 2. How many drinks containing alcohol do you have on a typical day when you are drinking?: 1 or 2 3. How often do you have six or more drinks on one occasion?: Never Total Score: 4 Score Reviewed/Action Taken: Yes DRAKE-7 AMB Questionnaire DRAKE-7 Date DRAKE - 7 assessed: 10/26/24 Feeling nervous, anxious, or on edge: 0 = Not at all Not being able to stop or control worryin = Not at all Worrying too much about different things: 0 = Not at all Trouble relaxin = Not at all Being so restless that it is hard to sit still: 0 = Not at all Becoming easily annoyed or irritable: 0 = Not at all Feeling afraid as if something awful might happen: 0 = Not at all Total DRAKE-7 score (0-4 normal; 5-9 mild; 10-14 moderate; 15-21 severe): 0 Source: Developed by Drs. Alexx Young, Jeanette Hernandez, Gio Howard and colleagues, with an educational monie from [employer]. DRAKE-7 Assessment Billing DRAKE-7 Assessment Tool: DRAKE-7 Assessment 40560 Physical exam (Primary Care) Vital Signs: Last Vital Signs Pulse 56 11/06/25 08:05 Resp 16 11/06/25 08:05 BP 122/78 11/06/25 08:05 Pulse Ox 99 11/06/25 08:05 Oxygen Delivery Method Room Air 11/06/25 08:05 BMI result Body Mass Index 27.3 Tobacco/Smoking Status: Tobacco use Status Tobacco use date assessed 11/06/25 11/06/25 08:09 Patient Tobacco Use Status Never used Tobacco 11/06/25 08:09 e-Cigarette/Vaping Use Never Used 11/06/25 08:09 PHQ-9: PHQ-9 Score PHQ-9: Total score 3 11/06/25 08:09 Depression Screening Interpretation: Negative Thrive Assessment: Date of Thrive Assessment Date Thrive assessed 10/26/24 11/06/25 08:09 Currently or been in a relationship where the following occur: No concerns reported Coding Level of Care Code Est Pt Level 3 (87167) Est Pt Prev Care >65y(15809) Diagnoses Elevated liver enzymes R74.8 Coronary artery disease involving [place] coronary artery of [place] heart without angina pectoris I25.10 Coronary Disease-Associated Artery/Lesion type: [place] artery [place] vs. transplanted heart: [place] heart Associated angina: without angina Head pain R51.9 Encounter for routine adult physical exam with abnormal findings Z00.01 Additional Codes PHQ-9 - 17543 - PHQ-9 Billing: Yes ([id number]) DRAKE-7 Assessment Billing - DRAKE-7 Assessment Tool: DRAKE-7 Assessment 62926 ([id number]) Assessment & Plan Assessment & Plan (1) Elevated liver enzymes: Code(s): R74.8 - Abnormal levels of other serum enzymes Category: Medical (2) Coronary artery disease: Code(s): I25.10 - Atherosclerotic heart disease of [place] coronary artery without angina pectoris Category: Medical Qualifiers: Coronary Disease-Associated Artery/Lesion type: [place] artery [place] vs. transplanted heart: [place] heart Associated angina: without angina Qualified Code(s): I25.10 - Atherosclerotic heart disease of [place] coronary artery without angina pectoris (3) Head pain: Code(s): R51.9 - Headache, unspecified Category: Medical (4) Encounter for routine adult physical exam with abnormal findings: Code(s): Z00.01 - Encounter for general adult medical examination with abnormal findings Category: Medical Plan . Orders: Orders US abdomen complete Today R74.8 - Abnormal levels of other serum enzymes Lipid Panel 2 Months I25.10 - Atherosclerotic heart disease of [place] coronary artery without angina pectoris CT head/brain wo IV con Today R51.9 - Headache, unspecified Hepatitis A,B,C Profile 2 Months R74.8 - Abnormal levels of other serum enzymes Comprehensive [place]. Panel Fast 2 Months I25.10 - Atherosclerotic heart disease of [place] coronary artery without angina pectoris
[2025-11-06 08:05] VITALS: BP 122/78; PULSE 56; RESP 16; O2SAT 99; BMI 27.3
== END 2025-11-06 10:09 | disposition home or self-care (01) ==
LOC: HO.HMCC 07:48
PROVIDERS: PCP Nurse Practitioner Family; Visit Provider Nurse Practitioner Family
DX: R74.8 Abnormal levels of other serum enzymes (principal); I25.10 Atherosclerotic heart disease of native coronary artery without angina pectoris; R51.9 Headache, unspecified; Z00.01 Encounter for general adult medical examination with abnormal findings

== ENCOUNTER → 2025-11-06 07:47 | Outpatient (BNVA) | payer OTHER, SELFPAY | PROVIDERS: PCP Nurse Practitioner Family; Visit Provider Nurse Practitioner Family | DX: Z13.31 Encounter for screening for depression (principal) | CPT/HCPCS: 96127 ==

== ENCOUNTER 2025-11-15 12:38 | Outpatient (AMB) | payer OTHER, SELFPAY ==
[2025-11-15 12:55] VITALS: BP 118/60; PULSE 63; BMI 27.2
--- NOTE | 2025-11-15 12:55 | A.OFFVIS_ITS ---
Vital Signs 11/15/25 12:55 Height 6 ft Weight 200 lb 9.93 oz BMI 27.2 BP 118/60 Blood Pressure Location Lt brachial Position Sitting Pulse 63 Pulse Source Pulse Oximeter Intake Visit Reasons: 6 m follow up Allergies No Known Allergies Allergy (Verified 10/26/24 08:15) Medication List - Last Reconciled 11/15/25 by Carlito Zacarias MD acetaminophen 1,000 mg PO ONCE aspirin 81 mg PO DAILY atorvastatin 80 mg PO QPM walker Folding Front wheeled walker HPI Comments Details: Angel returns for follow-up regarding coronary disease. In the past, he was getting chest pains and arm pains. Subsequently, he underwent a complete workup including cardiac catheterization. He has nonobstructive CAD, but nothing hemodynamically significant. Overall, feeling good. No cardiac symptoms whatsoever. [facility] Medical History Left hip pain Aortic valve calcification CAD (coronary artery disease) Osteoarthritis Ascending aorta enlargement Elevated cholesterol History of coronary angiogram GERD (gastroesophageal reflux disease) Surgical History History of surgery History of esophagogastroduodenoscopy (EGD) History of mandibular surgery Hx of colonoscopy History of surgery on arm History of bilateral inguinal hernia repair Family History Father Prosthetic valve dysfunction Brother Myocardial infarction complications Mother Pacemaker Social History Household Members: Spouse Housing: House Are you a primary nurse wound care to a significant other at home: No Do you presently have visiting nurse or other home services: No Comment: left hip Patient Tobacco Use Status: Never used Tobacco e-Cigarette/Vaping Use: Never Used Second Hand Smoke Exposure: Yes (pt's smokes ) service: No Current occupational status: employed and retired Current occupation: [employer] Current occupational exposures/hazards: No Cognitive needs: No Hearing needs: No Vision needs: No Review of Systems Const Denies weakness ENT Denies dizziness Card Denies chest pain, Denies chest pain with activity, Denies syncope, Denies rapid heart rate, Denies pedal edema, Denies edema, Denies leg edema, Denies lighthea dedness, Denies palpitations, Denies dyspnea, Denies dyspnea on exertion and Denies orthopnea Resp Denies cough, Denies dyspnea and Denies dyspnea on exertion GI Denies hematochezia and Denies change in stool character Musc Denies abnormal gait, Denies muscle cramps, Denies muscle weakness, Denies numbness, Denies radiating pain into limb and Denies tingling Neuro Denies abnormal gait, Denies dizziness, Denies syncope, Denies numbness, Denies tingling and Denies weakness Endo Denies palpitations Physical Exam Vital Signs: Last Vital Signs Pulse 63 11/15/25 12:55 BP 118/60 11/15/25 12:55 BMI result Body Mass Index 27.2 Const General: comfortable and no acute distress Orientation/consciousness: patient oriented x3 HEENT Other: Unremarkable Head: Yes normal to inspection Neck Neck: Yes normal visual inspection Chest Chest palpation & inspection: normal inspection of the chest Resp Auscultation: clear to auscultation bilaterally Cardio Palpation: normal PMI Heart sounds: S1 normal heart sound present, S2 normal heart sound present, no gallops, Murmur heart sound present systolic I/ and no rubs GI Palpation (GI): Soft to palpation Back/Spine/Pelvis Other: unremarkable Skin General skin exam: no rashes or lesions noted Neuro General: patient oriented x3 Extrem General: Yes normal to inspection Psych Mental Status: mental status grossly normal Assessment & Plan Assessment & Plan (1) Coronary artery disease: Code(s): I25.10 - Atherosclerotic heart disease of [place] coronary artery without angina pectoris Category: Medical Qualifiers: Associated angina: without angina Coronary Disease-Associated Artery/Lesion type: [place] artery [place] vs. transplanted heart: [place] heart Qualified Code(s): I25.10 - Atherosclerotic heart disease of [place] coronary artery without angina pectoris Plan: Cardiac studies reviewed. In the myocardial perfusion imaging - 2020- mild reversible apical defect thought to be artifactual based on normal wall thickening; there was also basal inferior defect thought to be diaphragmatic. In the ETT portion, he was able to perform quite well without chest pain. Cardiac catheterization 2021- 20-30% distal left main stenosis; mid LAD with 40% stenosis. Minimal irregularities elsewhere. Clinically, he has got no angina. Continue aspirin, statins. LDL 84 mg/dL. Cholesterol is acceptable but could be better. He wants to focus on weight loss and improved diet. That is acceptable. If not, consider Zetia. (2) Ascending aorta enlargement: Code(s): I77.89 - Other specified disorders of arteries and arterioles Category: Medical Plan: Ascending aorta measuring 3.9cm in echocardiogram. In the CTA, it was 3.8 cm. Follow up periodically. (3) Aortic valve calcification: Code(s): I35.9 - Nonrheumatic aortic valve disorder, unspecified Category: Medical Plan: Calcification noted but no stenosis. May follow with an echocardiogram in few years. Medications: Changed From acetaminophen 650 mg (2 x 325 mg) PO Q6H 30 days PRN 240 tabs 0RF Pain, Mild (Pain Scale 1-3) To acetaminophen 1,000 mg PO ONCE Coding Level of Care Code Est Pt Level 4 (49686) Add On Problem Visit Only Diagnoses Coronary artery disease involving [place] coronary artery of [place] heart without angina pectoris I25.10 Associated angina: without angina Coronary Disease-Associated Artery/Lesion type: [place] artery [place] vs. transplanted heart: [place] heart Ascending aorta enlargement I77.89 Aortic valve calcification I35.9
--- OUTSIDE RECORDS SUMMARY | 2025-11-15 14:13 | XMS_ITS | Patient Health Record ---
Author Organization [facility] Address [address] [place] [id number] Care Team Providers Care Health Policy Manager Name Role Phone BALJINDER AVALOS Primary Care Provider Hugo Kasper Jr Unavailable Allergies No Known Allergies Reason For Referral [...] Info Options Details Miscellaneous: Marital status: Occupation: [employer] Vac Problems Problem Type SNOMED Code ICD Code Onset Dates Problem Status W/U Status Risk Notes Problem Colon cancer screening (935201611) Colon cancer screening (Z12.11) Active confirmed Problem History of polyp of colon (situation) (553167278) Personal history of colonic polyps (Z86.010) Active confirmed Problem Gastroesophageal reflux disease without esophagitis (458220169) Gastroesophageal reflux disease without esophagitis (K21.9) Active confirmed Problem Long-term current use of antiplatelet drug (543698047598224) Long-term use of aspirin therapy (Z79.82) Active confirmed Plan Of Treatment Future Test Test Name Order Date UPPER GI ENDOSCOPY 04/19/2014 COLONOSCOPY 04/19/2014 COLONOSCOPY 01/01/2020 COLONOSCOPY 03/20/2022 Insurance Providers Payer Name Payer Address Payer Phone Subscriber Number Group Number Insured Name Patient Relationship to Insured Coverage Start Date Coverage End Date [employer] Medicare Advantage Plan [address] [address] [place] [phone] [id number] JAZZ THOMPSON Self - patient is the [...]
== END 2025-11-15 13:13 | disposition home or self-care (01) ==
LOC: HO.HCS 12:39
PROVIDERS: PCP Nurse Practitioner Family; Visit Provider Internal Medicine
DX: I25.10 Atherosclerotic heart disease of native coronary artery without angina pectoris (principal); I77.89 Other specified disorders of arteries and arterioles; I35.9 Nonrheumatic aortic valve disorder, unspecified
CPT/HCPCS: 99214